=== PATIENT | female | born 1940 | race Caucasian/White ===

== ENCOUNTER 2016-12-03 10:23 | Inpatient (IN) ==
[2016-12-03] MEDS ORDERED: ALBUTEROL NEB INH ONE (10:51)
[2016-12-03] MEDS ORDERED: DUONEB (A & A) INH ONE (10:51)
[2016-12-03] MEDS ORDERED: SOLU-MEDROL IV ONE (10:51)
[2016-12-03 11:03] LABS: MANUAL DIFF NEEDED? NO
[2016-12-03 11:06] LABS: BASO% 0.5 % (0.0-0.8); EOS# 0.35 X1000 (0.0-0.7); EOS% 4.4 % (0.0-10.0); HEMATOCRIT 36.8 % (37.0-47.0); HEMOGLOBIN 12.2 g/dL (12.0-16.0); LYMPH# 1.61 X1000 (1.2-3.4); LYMPH% 20.4 % (20.5-51.1); MCH 29.5 PG (27-31); MCHC 33.2 g/dL (33-37); MCV 89.1 FL (81-99); MONO# 0.58 X1000 (0.11-0.59); MONO% 7.3 % (1.7-9.3); MPV 11.3 FL (7.4-10.4); NEUT% 67.4 % (42.2-75.2); PLT 204 X1000 (130-400); RBC 4.13 XMIL (4.2-5.4)
[2016-12-03 11:57] LABS: AGAP 12; ALBUMIN 4.2 g/dL (3.5-5.0); ALKALINE PHOSPHATASE 56 U/L (32-104); BUN 13 mg/dL (8-22); CALCIUM 9.1 mg/dL (8.8-10.2); CHLORIDE 98 mmol/L (98-107); COSMO 278; GOT 19 U/L (10-30); GPT 14 U/L (10-36); POTASSIUM 3.7 mmol/L (3.5-5.1); SODIUM 139 mmol/L (136-145); TCO2 29 mmol/L (25-35); TOTAL BILIRUBIN 0.45 mg/dL (0.20-1.00); TOTAL PROTEIN 7.8 g/dL (6.3-8.3)
[2016-12-03 12:07] LABS: ALLEN TEST YES; BE 4.4 mmoll (-3.0-3.0); BLOOD TYPE ARTERIAL; DRAW SITE R RADIAL; METHB 0.7 % (0.0-1.5); O2(CT) 21.3 mL/dL (15.0-23.0); PCO2(98.6) 46 mmHg (35-45); PO2(98.6) 64 mmHg (60-100); SAMPLE BLOOD; SAO2 98.2 % (95.0-100.0); THB 15.8 g/dL (11.5-17.4); pH(98.6) 7.42 (7.35-7.45)
--- NOTE | 2016-12-03 12:07 | Diag Imaging Result Doc PS360 ---
EXAM: CHEST-2 VIEWS INDICATION: cough TECHNIQUE: 2 views COMPARISON: 08/24/2016 FINDINGS: The lungs are hyperinflated suggesting COPD, stable. Otherwise, the lungs are grossly clear. There is no discrete pleural fluid collection or pneumothorax. There is a stable thoracic aortic stent graft. Cardiac silhouette and central vasculature are grossly unremarkable, otherwise. IMPRESSION: Stable COPD changes but no definite acute pathology. Electronically signed by Hugh Oreilly 12/03/2016 12:05 PM
[2016-12-03 12:08] LABS: MODALITY CANNULA
[2016-12-03] MEDS ORDERED: CATAPRES PO ONE (12:10)
--- NOTE | 2016-12-03 12:28 | EKG Report ---
Test Performed on : 12/03/2016 10:38:33 AM Test Reason : ED. Not ordered in [place] Blood Pressure : / mmHG Vent. Rate : 086 BPM Atrial Rate : 086 BPM P-R Int : 124 ms QRS Dur : 096 ms QT Int : 404 ms P-R-T Axes : 036 042 056 degrees QTc Int : 483 ms Normal sinus rhythm. Normal ECG When compared with ECG of 18-JAN-2014 11:06, No significant change was found Unconfirmed Result
--- NOTE | 2016-12-03 12:57 | PROVIDER DOCUMENTATION ---
This chart was entered by Jose Alfredo Chicas Scribe, acting as scribe for Drake Castaneda CRNP. HPI-Respiratory General - General Chief Complaint: Shortness of Breath Stated Complaint: elevated bp/low oxygen Time Seen by Provider: 12/03/16 10:43 Source: patient Allergies/Adverse Reactions: Patient Allergies Allergy/AdvReac Type Severity Reaction Status Date / Time acetaminophen [From Lortab] Allergy NAUSEA Verified 12/03/16 10:53 hydrocodone bitartrate * Allergy NAUSEA Verified 12/03/16 10:53 [From Lortab] Home Medications: Home Medication List Medication Instructions Recorded Confirmed Last Taken Type Albuterol 0.5% INH Conc [Albuterol 2.5 mg INH 4XDAY 01/18/14 12/03/16 01/21/14 06:30 History 0.5% INH Conc For Hyperkalemia] Amlodipine [Norvasc] 5 mg PO DAILY 01/18/14 12/03/16 01/20/14 08:00 History Atorvastatin Calcium [Lipitor] 40 mg PO QHS 01/18/14 12/03/16 01/20/14 08:00 History Citalopram [Celexa] 40 mg PO DAILY 01/18/14 12/03/16 01/20/14 08:00 History Fluticasone/Salmeterol [Advair 1 each IH DAILY 01/18/14 12/03/16 01/20/14 08:00 History 250-50 Diskus] Glucosamin,Biluumqzm-Hqal-Yvd4 1 each PO DAILY 01/18/14 12/03/16 01/20/14 08:00 History [Glucoten Caplet] Multivitamin with Minerals 1 each PO DAILY 01/18/14 12/03/16 01/20/14 08:00 History [Multiple Vitamin] Potassium 99 mg PO DAILY 01/18/14 12/03/16 01/20/14 08:00 History Hydroxyzine Pamoate [Vistaril] 50 mg PO BID PRN 12/03/16 12/03/16 Unknown History - History of Present Illness-Resp Nature of Presenting Problem: patient is 76 y/o F that presents to the ER with shortness of breath for about 6 days. patient reports mild cough but no fever/chills, chest pain. patient went to pcp and was found to be hypertensive( 200s/100s) and had low o2 saturation 89 % on RA. history of copd. Denies headache or visual changes with elevation of BP Quality of Pain: reports: tightness Severity in ED: reports: moderate Onset/Duration: reports: gradual, 6 days ago Timing: reports: still present, constant Context: reports: multiple patients with similar complaints. denies: recent URI , out of meds Cough Quality/Degree: reports: moderate, dry cough Episode Frequency: chronic episodes Current Respiratory Medication Therapy: Initiated see nurses note Modifying Factors: worse with: exertion, coughing Associated Symptoms: reports: cough, shortness of breath, short of breath, wheezing. denies: fever/chills, flu-like symptoms, headache, nasal congestion, nasal drainage Similar Symptoms Previously?: Yes Recently seen or treated by another doctor?: Yes Review of Systems - Adult - REVIEW OF SYSTEMS - ADULT Constitutional: denies: chills, fever Eyes: denies: decreased vision, blurred vision, double vision Ears, Nose, Mouth & Throat: denies: ear discharge, ear pain, sinus problem, throat pain Cardiovascular: denies: chest pain, palpitations, syncope Respiratory: reports: cough, shortness of breath, wheezing. denies: hemoptysis Gastrointestinal: denies: abdominal pain, diarrhea, nausea Genitourinary: reports: no symptoms reported Musculoskeletal: reports: no symptoms reported Integumentary: reports: no symptoms reported Neurological: denies: ataxia, dizziness/vertigo, headache/migraines, seizure, syncope Psychiatric: reports: no symptoms reported Endocrine: reports: no symptoms reported Hematologic/Lymphatic: reports: no symptoms reported Allergic/Immunologic: reports: no symptoms reported All Other Systems: Reviewed and Negative Past History - Adult - PAST MEDICAL HISTORY-ADULT Review of Records: reports: Old Records Reviewed, Nursing Assessment Review, Medications Reviewed Cardiovascular: reports: HTN Respiratory: reports: asthma, COPD Obstetrical/Gynecological: reports: other (R breast Ca) - PRIOR SURGERIES/PROCEDURES Surgical/Procedure History: reports: none - IMMUNIZATION STATUS Childhood Immunizations: See Nurse Assessment Flu Vaccine: See Nurse Assessment - FAMILY HISTORY Family History: reviewed, not pertinent - SOCIAL HISTORY Smoking: quit greater than 1 year, cigarettes Living Situation: family Physical Exam-General - PHYSICAL EXAM-ADULT Initial Vital Signs Reviewed: Yes - CONSTITUTIONAL General Appearance: alert, mild distress - EYES Eyes: PERRL/EOMI, pink conjunctivae - HEAD, EARS, NOSE, MOUTH & THROAT HENMT: normocephalic/atraumatic, moist mucous membranes, normal ENT inspection - NECK Neck: non-tender, full range of motion, normal inspection - RESPIRATORY Respiratory: respiratory distress (mild), accessory muscle use (mild), wheezing - CARDIOVASCULAR Cardiovascular: regular rate, rhythm, no edema, no murmur - GASTROINTESTINAL (ABDOMEN) Abdominal Exam: normal bowel sounds, non tender, soft - MUSCULOSKELETAL Extremity: normal range of motion, normal inspection, no pedal edema, normal capillary refill, pelvis stable - SKIN Integumentary: normal color, warm/dry - NEUROLOGIC Neurologic: grossly normal, no motor/sensory deficits - PSYCHIATRIC Psych/Mental Status: normal mood/affect, normal thought content, normal thought process, oriented x 3 Progress - PLAN OF CARE/RESULTS Progress/Plan/Lab Results: Vital Signs - 8 hr 12/03/16 10:26 12/03/16 11:21 12/03/16 12:11 Temperature 98.4 F Pulse Rate 96 H 77 82 Respiratory Rate 24 20 Blood Pressure 260/120 199/93 O2 Sat by Pulse Oximetry 89 L 96 94 L Laboratory Results - last 24 hr 12/03/16 12/03/16 12/03/16 10:40 10:40 10:40 WBC 7.90 RBC 4.13 L Hgb 12.2 Hct 36.8 L MCV 89.1 MCH 29.5 MCHC 33.2 RDW Std Deviation 13.6 Plt Count 204 MPV 11.3 H Immature Gran % (Auto) 0.0 Neut % (Auto) 67.4 Lymph % (Auto) 20.4 L [place] % (Auto) 7.3 Eos % (Auto) 4.4 Baso % (Auto) 0.5 Immature Gran # (Auto) 0.00 Neut # (Auto) 5.32 Lymph # (Auto) 1.61 [place] # (Auto) 0.58 Eos # (Auto) 0.35 Baso # (Auto) 0.04 Specimen Type Sample Site pH pCO2 pO2 HCO3 Base Excess Oxyhemoglobin ABG O2 Sat (Calculated) ABG O2 Saturation ABG Carboxyhemoglobin ABG Methemoglobin Dinesh Test A-a O2 Difference Total Hemoglobin Lactate Liter Flow Blood Gas Modality FiO2 % Sodium 139 Potassium 3.7 Chloride 98 Carbon Dioxide 29 Anion Gap 12 BUN 13 Creatinine 0.8 Estimated GFR/1.73 m2 > 60 BUN/Creatinine Ratio 16 Glucose 105 H Calculated Osmolality 278 Calcium 9.1 Total Bilirubin 0.45 AST 19 ALT 14 Alkaline Phosphatase 56 Hjo-Z-Ptnekdjhgtw Pept 168 Total Protein 7.8 Albumin 4.2 Globulin 3.6 Albumin/Globulin Ratio 1.2 Plasma Lactate 12/03/16 12/03/16 10:40 12:00 WBC RBC Hgb Hct MCV MCH MCHC RDW Std Deviation Plt Count MPV Immature Gran % (Auto) Neut % (Auto) Lymph % (Auto) [place] % (Auto) Eos % (Auto) Baso % (Auto) Immature Gran # (Auto) Neut # (Auto) Lymph # (Auto) [place] # (Auto) Eos # (Auto) Baso # (Auto) Specimen Type ARTERIAL Sample Site R RADIAL pH 7.42 pCO2 46 H pO2 64 HCO3 28.3 H Base Excess 4.4 H Oxyhemoglobin 96.0 ABG O2 Sat (Calculated) 21.3 ABG O2 Saturation 98.2 ABG Carboxyhemoglobin 1.40 ABG Methemoglobin 0.7 Dinesh Test YES A-a O2 Difference 78.0 Total Hemoglobin 15.8 Lactate 1.20 Liter Flow 2.0 Blood Gas Modality CANNULA FiO2 % 28.0 Sodium Potassium Chloride Carbon Dioxide Anion Gap BUN Creatinine Estimated GFR/1.73 m2 BUN/Creatinine Ratio Glucose Calculated Osmolality Calcium Total Bilirubin AST ALT Alkaline Phosphatase Bdz-Q-Xvgyynchivb Pept Total Protein Albumin Globulin Albumin/Globulin Ratio Plasma Lactate 1.0 Orders Category Date Time Status Saline Loc NOW Care 12/03/16 10:52 Active CHEST-2 VIEWS [RAD] Stat Exams 12/03/16 10:52 Completed ABG [RESP] Routine Lab 12/03/16 12:00 Completed BLOOD CULTURE [BLDCUL] Stat Lab 12/03/16 11:06 Results CBC WITH DIFF [HEME] Stat Lab 12/03/16 10:40 Completed COMPREHENSIVE METABOLIC PANEL [CHEM] Stat Lab 12/03/16 10:40 Completed LACTATE, PLASMA [CHEM] Stat Lab 12/03/16 10:40 Completed PRO B-NATRIURETIC PEPTIDE Stat Lab 12/03/16 10:40 Completed Albuterol 2.5MG/Ipratrop 0.5MG [Duoneb (A & A)] Med 12/03/16 10:51 Discontinued 3 ml INH NOW ONE Albuterol [Albuterol Neb] Med 12/03/16 10:51 Discontinued 2.5 mg INH NOW ONE Clonidine [Catapres] Med 12/03/16 12:10 Discontinued 0.2 mg PO NOW ONE Methylprednisolone Sod Succ [Solu-Medrol] Med 12/03/16 10:51 Discontinued 125 mg IV NOW ONE Aerosol Treatments Routine Oth 12/03/16 10:53 Completed Aerosol Treatments Stat Oth 12/03/16 10:53 Completed Pulse Oximetry Stat Oth 12/03/16 10:52 Completed EKG [EKG] Stat Ther 12/03/16 10:38 Draft Result Diagrams: 12/03/16 10:40 12/03/16 10:40 - EKG 1 Time of EKG reading by physician:: 10:43 EKG Read and Signed by:: Prabhakar Penaloza EKG Interpretation (*Must complete 3 of following elements*): Normal Rate: 86 Rhythm: NSR [place]: normal QRS: normal SD Interval: normal ST Wave: normal - XRAY 1 XRAY: Bilateral XRAY Study: Chest Impression: See EMR Report (COPD. Per radiologist report.) - CONSULTS/PCP/HOSPITALIST Notification #1 *Consult/PCP/Hospitalist*: Murphy Time Discussed: 12:22 Consult Disposition: Will see in ED, Admit Departure - Departure Date of Disposition Decision: 12/03/16 Time of Disposition Decision: 12:22 DIAGNOSIS: COPD exacerbation Disposition: ADMITTED INPATIENT 09 Certified Medical Emergency: Emergent Condition: Stable Referrals and Follow-Ups: Mary Anne Guillory [Primary Care Provider] - - Critical Care Note This patient required my direct & personal management of CC.: No Attestation - Physician/ DIPTI Attestation Patient care was provided by Advanced Practice Provider:: Yes Advanced Practice Provider:: Drake Castaneda Advanced Practice Provider documentation review:: The Mid-level provider documentation, treatment plan and medical decision making was reviewed by the physician who agrees with all treatment and medical decision making by the MLP. The physician spent face to face time with patient:: No Advanced Practice Provider documentation review:: Supervising physician onsite and consulted in the evaluation and care of this patient. The physician did not have a face to face encounter with the patient. This chart was documented by the indicated scribe, (Jose Alfredo Chicas, Siobhanarmando) and accurately reflects the services I performed and decisions made by me, Drake Castaneda CRNP, as attested by the provider's signature.
[2016-12-03] MEDS ORDERED: DUONEB (A & A) INH PRN (14:14)
[2016-12-03] MEDS ORDERED: APRESOLINE IV PRN (14:14)
[2016-12-03] MEDS ORDERED: HYDROXYZINE PO PRN (14:14)
--- NOTE | 2016-12-03 14:30 | EKG Report ---
Test Performed on : 12/03/2016 2:05:15 PM Test Reason : sob Blood Pressure : / mmHG Vent. Rate : 073 BPM Atrial Rate : 073 BPM P-R Int : 174 ms QRS Dur : 090 ms QT Int : 444 ms P-R-T Axes : 068 032 060 degrees QTc Int : 489 ms Normal sinus rhythm. Normal ECG When compared with ECG of 03-DEC-2016 10:38, (Unconfirmed) No significant change was found Confirmed by Larry SARMIENTO, Dinesh Damico ([id number]) on 12/03/2016 8:51:23 PM
[2016-12-03] MEDS: ROCEPHIN 1 GM in NS 50 ML IV SCH (15:18)
[2016-12-03] MEDS: DUONEB (A & A) INH SCH ×3 (15:55→22:59)
--- NOTE | 2016-12-03 17:19 | HISTORY AND PHYSICAL ---
PCP: Mary Anne Guillory [employer] PRO[employer] MANAGER: Dr. Vang. CHIEF COMPLAINT: Shortness of breath. HISTORY OF PRESENT ILLNESS: Mrs. Jenkins is a 76-year-old female with a history of COPD on 24/7 oxygen, aortic aneurysm status post repair, history of right-sided breast cancer who presents with 3 days of progressive dyspnea. She has started having some shortness of breath with mild exertion. This progressed over the past few days to shortness of breath at rest. This is associated with cough with green and yellow sputum production, but no fever or chills. She denies any chest pain or back pain. No lower extremity edema or orthopnea. When she got to the ER labs and diagnostics were done. Chest x-ray showed stable COPD changes but nothing acute. Her laboratory data also was unremarkable. Apparently she went to her PCP earlier today because of the shortness of breath and because her blood pressure was elevated over 200 systolic. She was sent here. Currently her blood pressure is 158/86, but this was after treatment in the ER. As such she is going to be admitted for observation status for COPD exacerbation and malignant hypertension. PAST MEDICAL HISTORY: 1. COPD followed by Dr. Vang on 2 L of oxygen /. 2. Hypertension. 3. Hyperlipidemia. 4. Breast cancer status post right mastectomy in 2012. 5. Aortic aneurysm status post repair. SURGICAL HISTORY: She has had a right mastectomy, hernia repair x 3 and aortic aneurysm repair. SOCIAL HISTORY: She quit smoking 10-15 years ago. She denies alcohol, tobacco or drug use. Her family including is at the bedside. FAMILY HISTORY: Father from aortic aneurysm. Mother from [place]. REVIEW OF SYSTEMS: Fourteen-point review of systems obtained and found to be negative with the exception of the HPI. ALLERGIES: Acetaminophen and hydrocodone. HOME MEDICATIONS: Albuterol 2.5 mg inhaled 4 times a day, Norvasc 5 mg daily, Lipitor 40 mg p.o. at bedtime, Celexa 40 mg daily, Advair as directed, glucosamine chondroitin multivitamin 1 daily, Vistaril 50 mg p.o. b.i.d., potassium 99 mg daily. PHYSICAL EXAMINATION: VITAL SIGNS: Blood pressure is 154/86, heart rate is 79, respiratory rate is 23 , O2 saturation 92% on 2 L nasal cannula, temperature is 98.4 degrees. GENERAL: This is an obese, female, lying in hospital bed in no acute distress. NEUROLOGIC: She is awake, alert, and oriented. She follows commands without focal deficits. HEENT: Head is atraumatic, normocephalic. Her pupils are equal, round, reactive to light. Oral mucosa is moist. Trachea is midline. Oropharynx is clear. NECK: Is supple. No lymphadenopathy. CHEST: Diminished at the bases with scattered wheezes. CV: Regular rate and rhythm. S1-S2 is noted. No murmurs. There is no JVD. No lower extremity edema. GI: Soft, nondistended, nontender. Bowel sounds are positive. EXTREMITIES: No edema. Pulses diminished bilaterally. DIAGNOSTIC DATA: Chest x-ray is negative. WBC 7.9, hemoglobin 12.2, hematocrit 36.8, platelet count 204,000. ABG on nasal cannula, pH 7.42, CO2 46, bicarb 28.3. Lactic acid 1.2. Sodium 139, potassium 3.7, chloride 98, CO2 29, anion gap is 12, BUN 13, creatinine 0.8, glucose 105. LFTs within normal limits. Albumin 4.2. ASSESSMENT/PLAN: 1. Chronic obstructive pulmonary disease exacerbation: We will continue steroids started in the ER. We will add Rocephin. Aggressive pulmonary toilet and breathing treatments. She is feeling better. 2. History of aortic aneurysm: The patient denies any chest or back pain. We will check an EKG and trend enzymes. 3. History of breast cancer: Aware. 4. Hypertension: Continue home medications. Add IV p.r.n. if necessary. 5. Deep vein thrombosis prophylaxis with Lovenox. 6. Further recommendations to follow. Patient seen and examined by me face to face, all the lab work, vitals signs and images were reviewed, patient came in with SOB, she has history of COPD, she has wheezes on my physical exam, I think she can be dischared in 1 or 2 days , I agree with the assessment and plan, Micheal Saenz MD Dictated by ZAINAB Torres for Micheal Rosenberg MD cc: ZAINAB Torres [facility]
[2016-12-03] MEDS: SOLU-MEDROL IV SCH (18:52)
[2016-12-03] MEDS: LIPITOR PO SCH (22:04)
[2016-12-04] MEDS: DUONEB (A & A) INH SCH ×6 (03:17→23:30)
[2016-12-04] MEDS: SOLU-MEDROL IV SCH ×3 (04:05→17:32)
[2016-12-04 06:27] LABS: HEMATOCRIT 34.1 % (37.0-47.0); HEMOGLOBIN 11.2 g/dL (12.0-16.0); MCH 29.9 PG (27-31); MCHC 32.8 g/dL (33-37); MCV 90.9 FL (81-99); MPV 11.4 FL (7.4-10.4); RBC 3.75 XMIL (4.2-5.4)
[2016-12-04 07:08] LABS: AGAP 13; BUN 19 mg/dL (8-22); CALCIUM 9.1 mg/dL (8.8-10.2); CHLORIDE 101 mmol/L (98-107); COSMO 288; POTASSIUM 4.5 mmol/L (3.5-5.1); SODIUM 142 mmol/L (136-145); TCO2 28 mmol/L (25-35)
[2016-12-04] MEDS: ADVAIR 250/50 DISKUS INH SCH (07:59)
[2016-12-04] MEDS: NORVASC PO SCH (09:06)
[2016-12-04] MEDS: LOVENOX SUBQ SCH (09:06)
[2016-12-04] MEDS: CELEXA PO SCH (09:06)
[2016-12-04] MEDS: THERA M PLUS PO SCH (09:06)
--- NOTE | 2016-12-04 14:26 | PROGRESS NOTE ---
DATE: 12/04/2016 SUBJECTIVE: Patient reports breathing better, but she is not at her baseline. She is still mildly short of breath. She is using 2 L of oxygen by nasal cannula. OBJECTIVE: Vital Signs: Temperature 98.0 degrees, heart rate 81, respiratory rate 20, blood pressure 169/71, O2 saturation 98% on 2 L nasal cannula. General Examination: This is a 76-year- old, chronically ill-looking female lying in bed, in no acute distress. HEENT: Head is normocephalic, atraumatic. Neck: Supple. No jugular venous distention noted. No carotid bruits. No lymphadenopathy. No thyromegaly. Cardiovascular Examination: S1-S2 heard. No murmurs, gallops, or rubs. Regular rate and rhythm. Respiratory Examination: Wheezing all over both pulmonary quesada. Patient is not using any accessory muscles or having work of breathing. Abdomen: Soft, nontender to palpation. Bowel sounds present. No organomegaly. Extremities: No clubbing, cyanosis, or edema. Peripheral pulses present in both legs. Neurological Examination: Patient is alert and oriented x3. Able to move her extremities. Cranial nerves 2-12 grossly normal. LABORATORY DATA: White cell count 4.95, hemoglobin 11.2, hematocrit 34.1, platelets 192,000, with normal BMP. ASSESSMENT AND PLAN: 1. Chronic obstructive pulmonary disease exacerbation. Patient is on Rocephin, IV steroids, and breathing treatments. We are going to continue with the same management. 2. History of breast cancer, aware. 3. History of aortic aneurysm. The patient denies any chest pain or back pain. We have checked EKG, which is okay. 4. Hypertension. We will continue with home medications. Blood pressure is better, but not completely well controlled. We will continue checking blood pressure every 6 hours. 5. Deep vein thrombosis prophylaxis with Lovenox. cc: Yared Macedo MD
[2016-12-04] MEDS: ROCEPHIN 1 GM in NS 50 ML IV SCH (15:46)
[2016-12-04] MEDS: SPIRIVA INH SCH (17:58)
[2016-12-04] MEDS ORDERED: HYDROXYZINE PO PRN (20:59)
[2016-12-04] MEDS: LIPITOR PO SCH (21:04)
[2016-12-05] MEDS: SOLU-MEDROL IV SCH ×3 (02:24→10:09)
[2016-12-05] MEDS: DUONEB (A & A) INH SCH ×3 (03:24→11:07)
[2016-12-05 06:50] LABS: HEMATOCRIT 33.8 % (37.0-47.0); HEMOGLOBIN 11.1 g/dL (12.0-16.0); MCH 29.8 PG (27-31); MCHC 32.8 g/dL (33-37); MCV 90.9 FL (81-99); MPV 11.2 FL (7.4-10.4); RBC 3.72 XMIL (4.2-5.4)
[2016-12-05 07:09] LABS: AGAP 14; BUN 28 mg/dL (8-22); CALCIUM 9.5 mg/dL (8.8-10.2); CHLORIDE 102 mmol/L (98-107); COSMO 297; POTASSIUM 4.4 mmol/L (3.5-5.1); SODIUM 145 mmol/L (136-145); TCO2 29 mmol/L (25-35)
[2016-12-05] MEDS: THERA M PLUS PO SCH (08:53)
[2016-12-05] MEDS: CELEXA PO SCH (08:53)
[2016-12-05] MEDS: NORVASC PO SCH (08:53)
[2016-12-05] MEDS: LOVENOX SUBQ SCH ×2 (08:53→10:24)
[2016-12-05] MEDS: ADVAIR 250/50 DISKUS INH SCH (11:07)
[2016-12-05] MEDS ORDERED: FLUZONE QUAD 2017-2018 SYRINGE IM ONE (11:11)
[2016-12-05 11:59] VITALS: BP 174/64
[2016-12-05] MEDS ORDERED: PRINIVIL PO SCH (12:15)
[2016-12-05] MEDS: ROCEPHIN 1 GM in NS 50 ML IV SCH (14:37)
--- NOTE | 2016-12-05 14:42 | DISCHARGE SUMMARY ---
ADMISSION DATE: 12/05/2016 DISCHARGE DATE: 12/05/2016 DISCHARGE DIAGNOSES: 1. Chronic obstructive pulmonary disease exacerbation, improved. 2. History of breast cancer. Aware. 3. Hypertension. 4. Bronchial asthma, improved. 5. Hyperlipidemia. CONSULTATIONS: None. PROCEDURES: Chest x-ray done on admission showed stable COPD changes, but no definite acute pathology. HOSPITAL COURSE: This is a 76-year-old, female with history of COPD, on home oxygen at 2 L/minute, aortic aneurysm, right-sided breast cancer. She started having some shortness of breath with mild exertion that was getting worse over the last few days. It was associated with cough, with green and yellow sputum, but no fever or chills. Because of those findings, the patient decided to go to the ER. She was admitted to hospital for COPD exacerbation. She received breathing treatments every 4 hours, and she was afebrile. She was started on antibiotics and IV steroids. The patient today is feeling better. She was informed that the white cell count, because of the steroids, has gone up, but she prefers to see a primary care physician and to check on her in 1 week. The patient denies any shortness of breath at rest. The patient is being discharged, in stable condition. DISCHARGE PHYSICAL EXAMINATION: Vital signs: Temp 98.2 degrees, heart rate 81, respiratory rate 18, blood pressure 188/70, O2 saturation 93% on 2 L nasal cannula. General: This is a 76-year- old, female. Lying in bed, in no acute distress. HEENT: Head is normocephalic, atraumatic. Anicteric sclerae and pale conjunctivae. Mucous membranes moist. Neck: Supple. No JVD noted. No carotid bruits. No lymphadenopathy. No thyromegaly. Cardiovascular: S1, S2 heard. No murmurs, gallops, or rubs. Regular rate and rhythm. Respiratory: Clear bilaterally to auscultation. Few wheezes in both bases, but definitely much better in comparing with admission. The patient is not using any accessory muscles or having work of breathing. Abdomen: Soft, nontender to palpation. Bowel sounds present. No organomegaly. Extremities: No clubbing, cyanosis, or edema. Peripheral pulses present in both legs. Neurological: The patient alert and oriented x3. Moves 4 extremities. DISCHARGE DISPOSITION: To home, to self-care. MEDICATIONS: 1. Lisinopril 10 mg, 1 tablet p.o. daily. 2. Spiriva, 1 inhalation daily. 3. Medrol Dosepak as directed. 4. DuoNeb 3 mL by inhalation every 4 hours as needed for shortness of breath. 5. Advair 250/50, one inhalation b.i.d. 6. Atorvastatin 40 mg, 1 tablet p.o. at bedtime. 7. Multivitamin, 1 tablet p.o. daily. 8. Citalopram 40 mg, 1 tablet p.o. daily. 9. GlucaPen, 1 tablet p.o. daily. 10. Amlodipine 10 mg, 1 tablet p.o. daily. 11. Hydroxyzine 150 mg, 1 tablet p.o. b.i.d. as needed for anxiety. DISCHARGE FOLLOWUP: Follow up with primary care physician in 1 week, with a repeated the CBC. cc: Yared Macedo MD
[2016-12-05] MEDS: SPIRIVA INH SCH (15:57)
[2016-12-05] MEDS ORDERED: NORVASC PO SCH (21:00)
== END 2016-12-05 17:33 | disposition home or self-care (01) ==
LOC: ED 10:23 → INTOOBSV 13:23 → 3N 13:23 → SUATTDRO 13:23 → 3N 14:06
PROVIDERS: ATTEND Internal Medicine

== ENCOUNTER 2018-03-10 17:54 | Inpatient (IN) ==
--- NOTE | 2018-03-10 18:24 | ED EKG INTERP ---
This chart was entered by Rosendo Levin Scribe, acting as scribe for Tigre Walter MD. EKG Interpretation - EKG Time of EKG reading by physician:: 18:11 EKG Read and Signed by:: Tigre Walter EKG Interpretation (*Must complete 3 of following elements*): Normal Rate: 98 Rhythm: NSR [place]: normal QRS: normal [place] Interval: normal ST Wave: normal Attestation - Physician/ DIPTI Attestation Patient care was provided by Advanced Practice Provider:: No The physician spent face to face time with patient:: Yes Advanced Practice Provider documentation review:: Supervising physician onsite and consulted in the evaluation and care of this patient. The physician did have a face to face encounter with the patient. This chart was documented by the indicated scribe, (Rosendo Levin Scribe) and accurately reflects the services I performed and decisions made by me, Tigre Walter MD, as attested by the provider's signature.
[2018-03-10] MEDS ORDERED: NS 1,000 ML IV ONE ×2 (18:35→22:02)
[2018-03-10] MEDS ORDERED: ROCEPHIN 1 GM in NS 50 ML IV ONE (18:35)
[2018-03-10] MEDS ORDERED: DECADRON IV ONE (18:35)
[2018-03-10] MEDS ORDERED: DUONEB (A & A) INH ONE (18:36)
--- NOTE | 2018-03-10 18:43 | Diag Imaging Result Doc PS360 ---
EXAM: CHEST-2 VIEWS HISTORY: SOB TECHNIQUE: Chest two views COMPARISON: 02/17/2018 FINDINGS: The lungs are hyperexpanded. Increased AP diameter to the chest. The pulmonary vessels are small. Increased interstitial markings consistent with fibrosis. No consolidation. There are aortic vascular stents IMPRESSION: Severe emphysema with pulmonary fibrosis Electronically signed by Franklyn Tanner 03/10/2018 6:40 PM
[2018-03-10 18:46] LABS: ALLEN TEST YES; BE 5.8 mmoll (-3.0-3.0); BLOOD TYPE ARTERIAL; HCO3-(ACT) 29.3 mmoll (20.0-26.0); METHB 1.5 % (0.0-1.5); O2(CT) 13.7 mL/dL (15.0-23.0); PCO2(98.6) 40 mmHg (35-45); PO2(98.6) 57 mmHg (60-100); SAMPLE BLOOD; SAO2 92.7 % (95.0-100.0); THB 10.9 g/dL (11.5-17.4); pH(98.6) 7.48 (7.35-7.45)
[2018-03-10 18:48] LABS: MODALITY CANNULA; O2HB 89.2 % (95.0-99.0)
[2018-03-10 19:01] LABS: BASO# 0.02 X1000 (0.0-0.2); BASO% 0.2 % (0.0-0.8); EOS# 0.05 X1000 (0.0-0.7); EOS% 0.4 % (0.0-10.0); HEMATOCRIT 33.2 % (37.0-47.0); HEMOGLOBIN 10.6 g/dL (12.0-16.0); IMM GRAN# 0.03 X1000 (0.0-0.04); IMM GRAN% 0.2 % (0.0-0.5); LYMPH# 1.19 X1000 (1.2-3.4); LYMPH% 9.8 % (20.5-51.1); MCH 28.4 PG (27-31); MCHC 31.9 g/dL (33-37); MONO# 0.88 X1000 (0.11-0.59); MONO% 7.3 % (1.7-9.3); MPV 11.6 FL (7.4-10.4); NEUT# 9.93 X1000 (1.4-6.5); NEUT% 82.1 % (42.2-75.2); PLT 196 X1000 (130-400); RBC 3.73 XMIL (4.2-5.4); RDW 14.2 % (11.5-14.5)
[2018-03-10 19:22] LABS: INR 1.04; PROTIME 14.4 Seconds (11.0-16.0)
[2018-03-10 19:26] LABS: ALB/GLOB RATIO 1.2; CALCIUM 9.2 mg/dL (8.8-10.2); MAGNESIUM 1.9 mg/dL (1.5-2.7); POTASSIUM 3.8 mmol/L (3.5-5.1); TOTAL BILIRUBIN 0.56 mg/dL (0.20-1.00); TOTAL PROTEIN 7.3 g/dL (6.3-8.3)
[2018-03-10 19:45] LABS: CK INDEX 1.2 (0.0-2.5); CK-MB 2.79 ng/mL (0.0-5.0)
[2018-03-10] MEDS ORDERED: ASPIRIN PO ONE (20:22)
[2018-03-10 20:33] LABS: PHOSPHORUS 2.5 mg/dL (2.7-4.5)
[2018-03-10] MEDS ORDERED: NS 3,000 ML ONE (20:41)
[2018-03-10] MEDS ORDERED: CARDIZEM IV ONE (22:02)
[2018-03-10 22:45] LABS: URINE SOURCE CLEAN CATCH
[2018-03-10 23:26] LABS: BILIRUBIN URINE NEGATIVE (NEGATIVE); BLOOD URINE NEGATIVE (NEGATIVE); COLOR YELLOW; GLUCOSE URINE NEGATIVE (NEGATIVE); KETONE URINE NEGATIVE (NEGATIVE); LEUKOCYTES URINE NEGATIVE (NEGATIVE); NITRITE URINE NEGATIVE (NEGATIVE); PROTEIN URINE NEGATIVE (NEGATIVE); TURBIDITY URINE HAZY (CLEAR); UR EPITHELIAL CELLS <10 /HPF (<10); URINE BACTERIA NEGATIVE /HPF; URINE RBC <10 /HPF (<10); URINE WBC <10 /HPF (<10); UROBILINOGEN URINE NORMAL (NORMAL)
[2018-03-10] MEDS: DUONEB (A & A) INH SCH (23:53)
[2018-03-10] MEDS ORDERED: NS 1,000 ML IV SCH (23:53)
[2018-03-11] MEDS: LEVAQUIN 500 MG/D5W 500 MG/100 ML IVPB IV SCH ×2 (00:20→23:33)
[2018-03-11] MEDS: LOVENOX SUBQ SCH ×2 (00:22→23:33)
--- NOTE | 2018-03-11 00:25 | HISTORY AND PHYSICAL ---
CHIEF COMPLAINT: Shortness of breath. PRIMARY CARE PROVIDER: Jodi Guillory. HISTORY OF PRESENTING ILLNESS: A 77-year-old female with a history of advanced emphysema and COPD, who had presented to the emergency department with 2 days' history of worsening shortness of breath. The patient states that she is on home oxygen. However, it did not improve her symptoms. She was having more difficulty breathing, and coughing, and her sputum was thick, so she was taken to the emergency department, where she was evaluated. Due to her presenting symptoms, it was thought that she would need admission for further management. At the time of my examination, she denied any headache, fever, chills, chest pain, hemoptysis, melena, but complained of cough and shortness of breath. PAST MEDICAL HISTORY: Advanced COPD, hypertension. PAST SURGICAL HISTORY: Hysterectomy and hernia surgery. ALLERGIES: Lortab. CURRENT MEDICATIONS: As listed in the medication reconciliation sheet. SOCIAL HISTORY: She is a former smoker. Denies any history of alcohol or illicit drug use. FAMILY HISTORY: Positive for coronary disease in mother. REVIEW OF SYSTEMS: A 14-point review of systems is as in HPI. Other systems negative. PHYSICAL EXAMINATION: GENERAL: Cooperative, friendly female. She is resting more comfortably now. VITAL SIGNS: Temperature 99.4 degrees, pulse 97, respirations 28, blood pressure 160/62. HEENT: Atraumatic, normocephalic. Extraocular movements intact. PERRLA. NECK: No masses. CHEST: Rhonchi. CARDIOVASCULAR: Regular rate and rhythm. ABDOMEN: Soft. Positive bowel sounds. EXTREMITIES: No edema. NEUROLOGIC: She is awake, alert, oriented x3. GENITOURINARY: No bladder disease. SKIN: Warm. LABORATORIES AND STUDIES: Sodium 138, potassium 3.8, chloride 97, CO2 of 27. BUN is 21, creatinine is 1.0, glucose is 135. WBC 12.10, hemoglobin 10.6, hematocrit 32.2, platelets 196. Chest x-ray shows severe emphysema, with pulmonary fibrosis. ASSESSMENT: A 77-year-old female with a history of advanced chronic obstructive pulmonary disease and emphysema, who had presented to the emergency department with 2 days' history of worsening shortness of breath. The patient was evaluated in the emergency department, and due to presenting symptoms, she will need admission for further management. 1. [id number] respiratory failure. 2. Chronic obstructive pulmonary disease exacerbation, with advanced emphysema. 3. Hypertension. PLAN: 1. We will admit patient to the medical floor with telemetry. 2. We will continue with DuoNebs, IV Solu-Medrol, and IV antibiotics. 3. We will continue with supplemental oxygen. 4. We will consult hand fur cleaner. 5. Monitor blood pressure closely. Resume antihypertensive agent. 6. Put patient on deep venous thrombosis prophylaxis with Lovenox. 7. We will continue to follow and reassess, and make further recommendations based on the patient's clinical course. cc: Shukri Krueger MD
[2018-03-11] MEDS ORDERED: CARDIZEM IV ONE (00:35)
[2018-03-11] MEDS: DUONEB (A & A) INH SCH ×7 (03:12→23:38)
[2018-03-11 05:35] LABS: HEMATOCRIT 32.2 % (37.0-47.0); HEMOGLOBIN 10.1 g/dL (12.0-16.0); IMM GRAN# 0.03 X1000 (0.0-0.04); IMM GRAN% 0.3 % (0.0-0.5); LYMPH# 0.41 X1000 (1.2-3.4); LYMPH% 3.8 % (20.5-51.1); MCH 28.5 PG (27-31); MCHC 31.4 g/dL (33-37); MCV 90.7 FL (81-99); MONO# 0.16 X1000 (0.11-0.59); MONO% 1.5 % (1.7-9.3); MPV 11.1 FL (7.4-10.4); NEUT# 10.12 X1000 (1.4-6.5); NEUT% 94.4 % (42.2-75.2); PLT 176 X1000 (130-400); RBC 3.55 XMIL (4.2-5.4); RDW 14.4 % (11.5-14.5); WBC 10.72 X1000 (4.8-10.8)
[2018-03-11 05:41] LABS: AGAP 14; BUN 18 mg/dL (8-22); CALCIUM 8.1 mg/dL (8.8-10.2); CHLORIDE 105 mmol/L (98-107); COSMO 290; CREATININE 0.8 mg/dL (0.5-0.9); ESTIMATED GFR > 60; GLUCOSE 162 mg/dL (70-104); POTASSIUM 4.1 mmol/L (3.5-5.1); SODIUM 143 mmol/L (136-145); TCO2 24 mmol/L (25-35)
--- NOTE | 2018-03-11 07:16 | EKG Report ---
Test Performed on : 03/10/2018 7:58:15 PM Test Reason : SOB Blood Pressure : / mmHG Vent. Rate : 140 BPM Atrial Rate : 140 BPM P-R Int : 000 ms QRS Dur : 140 ms QT Int : 346 ms P-R-T Axes : 000 005 141 degrees QTc Int : 528 ms Wide QRS tachycardia. Left bundle branch block Abnormal ECG When compared with ECG of 07-MAY-2017 12:43, Wide QRS tachycardia. has replaced Sinus rhythm. Unconfirmed Result
--- NOTE | 2018-03-11 07:16 | EKG Report ---
Test Performed on : 03/10/2018 6:11:25 PM Test Reason : SOB Blood Pressure : / mmHG Vent. Rate : 098 BPM Atrial Rate : 098 BPM P-R Int : 148 ms QRS Dur : 086 ms QT Int : 352 ms P-R-T Axes : 092 053 051 degrees QTc Int : 449 ms Normal sinus rhythm. Normal ECG No previous ECGs available Unconfirmed Result
--- NOTE | 2018-03-11 07:17 | EKG Report ---
Test Performed on : 03/10/2018 8:58:16 PM Test Reason : CP Blood Pressure : / mmHG Vent. Rate : 101 BPM Atrial Rate : 101 BPM P-R Int : 146 ms QRS Dur : 086 ms QT Int : 356 ms P-R-T Axes : 041 027 050 degrees QTc Int : 461 ms Sinus tachycardia. Otherwise normal ECG When compared with ECG of 10-MAR-2018 19:58, (Unconfirmed) Sinus rhythm. has replaced Wide QRS tachycardia. Unconfirmed Result
[2018-03-11 07:20] LABS: LYMPHS 6 % (21-51); SEGS 94 % (42-75)
[2018-03-11] MEDS: NORVASC PO SCH ×2 (09:33→20:59)
[2018-03-11] MEDS: CELEXA PO SCH (09:33)
--- NOTE | 2018-03-11 11:02 | PROGRESS NOTE ---
DATE: 03/11/2018 SUBJECTIVE: This morning, Ms. Jenkins refers to be doing a lot better. Ms. Jenkins got admitted yesterday because of progressively worsening shortness of breath. She has gone up on her oxygen demands at home to about 3.5 L recently, and she has been coughing and bringing up some greenish yellowish sputum. She got admitted yesterday. Initially was found to have an oxygen saturation of 84% on 3 L, that has normalized now. OBJECTIVE: Vital signs: Blood pressure is 207/110, pulse of 88, respiration is 17. Oxygen saturation 92 to 96. General: Ms. Jenkins is a 77-year-old female. She is in bed. She is not in any cardiopulmonary distress. Mucosa: [place] and moist. Anicteric. Acyanotic. Neck: Supple. Respiratory: Air entry is bilaterally reduced. There is prolonged expiratory phase of respiration. There is also diffuse expiratory wheezing in both lung quesada. Cardiovascular: Regular rate and rhythm. No murmurs, no rubs, no gallops. Abdomen: Soft, nontender. Bowel sounds present. Extremities: No pedal edema. ENTERPRISE RECORDS ANALYST: Patient is awake, alert, and oriented. LABORATORY DATA: WBC is 10.72, hemoglobin is 10.1, platelet count of 176,000. Chemistry is also reviewed, completely normal. A chest x-ray yesterday shows severe emphysema with pulmonary fibrosis. CURRENT MEDICATIONS: Have been reviewed. She has been started on Levaquin, and she is on steroids. ASSESSMENT: 1. Severe chronic obstructive pulmonary disease with fibrosis in acute exacerbation. Patient is on bronchodilation therapy, steroids, and antibiotics. Pulmonary Medicine has been consulted. 2. Acute on chronic hypoxemic respiratory failure secondary to chronic obstructive pulmonary disease exacerbation. 3. Hypertension. We started the patient on her home medications. 4. Mild clinical volume depletion. Patient is on intravenous hydration. PLAN: So in general, Ms. Jenkins seems to be fairly stable. She refers to be doing a lot better today. We are pending Pulmonary Medicine to evaluate her. We are going to continue with her current antibiotics, steroids, and bronchodilation therapy, and re-evaluate her tomorrow and then go from there. cc: Regis Painter MD
[2018-03-11] MEDS: ZOFRAN IV PRN ×2 (11:29→23:12)
--- NOTE | 2018-03-11 12:13 | EKG Report ---
Test Performed on : 03/11/2018 10:39:33 AM Test Reason : HEART RATE Blood Pressure : / mmHG Vent. Rate : 091 BPM Atrial Rate : 091 BPM P-R Int : 168 ms QRS Dur : 092 ms QT Int : 382 ms P-R-T Axes : 073 048 072 degrees QTc Int : 469 ms Normal sinus rhythm. Nonspecific ST and T wave abnormality Abnormal ECG When compared with ECG of 11-MAR-2018 10:38, (Unconfirmed) No significant change was found Confirmed by Deanne SARMIENTO, Regis Jay ([id number]) on 03/11/2018 5:58:41 PM
[2018-03-11] MEDS ORDERED: LABETALOL IV ONE (13:23)
[2018-03-11] MEDS ORDERED: MORPHINE IV ONE ×2 (15:44→16:00)
[2018-03-11] MEDS ORDERED: SODIUM CHLORIDE 0.9% INJ ONE (15:44)
[2018-03-11] MEDS ORDERED: APRESOLINE IV ONE (15:44)
[2018-03-11] MEDS ORDERED: PHENERGAN IV ONE (15:44)
--- NOTE | 2018-03-11 17:03 | EKG Report ---
Test Performed on : 03/11/2018 3:48:38 PM Test Reason : BP Blood Pressure : / mmHG Vent. Rate : 087 BPM Atrial Rate : 087 BPM P-R Int : 168 ms QRS Dur : 084 ms QT Int : 390 ms P-R-T Axes : 077 058 076 degrees QTc Int : 469 ms Normal sinus rhythm. Normal ECG When compared with ECG of 11-MAR-2018 10:39, (Unconfirmed) No significant change was found Confirmed by Deanne SARMIENTO, Regis Jay ([id number]) on 03/12/2018 7:51:53 AM
[2018-03-11] MEDS: DESYREL PO SCH (20:58)
[2018-03-11] MEDS: LIPITOR PO SCH (20:58)
[2018-03-11] MEDS: PRINIVIL PO SCH (20:59)
[2018-03-12] MEDS: SOLU-MEDROL IV SCH ×3 (02:29→19:56)
[2018-03-12] MEDS: ZOFRAN IV PRN ×2 (02:30→14:09)
--- NOTE | 2018-03-12 03:37 | PULMONOLOGY CONSULTATION ---
DATE: 03/11/2018 REQUESTING PHYSICIAN: Dr. Painter. REASON FOR CONSULTATION: COPD, in a patient known to you. HISTORY OF PRESENT ILLNESS: Ms. Jenkins is a 77-year-old white female with severe COPD, hypoxemic and hypercapnic respiratory failure, who is on chronic oxygen. The patient also has a Trilogy device, with infrequent use. The patient was last seen in my office 02/25/2018, and was at her baseline. The patient had received her influenza vaccine, and she has been avoiding crowded places. The patient reports she was doing well until the day prior to admission, when she developed a cough with increasing oxygen requirements, and increase in thick dark sputum. The patient presented to the emergency room, and underwent routine management without improvement. The patient has been admitted for additional evaluation and management. The patient denies fevers or chills. PAST MEDICAL HISTORY/ PROBLEM LIST: 1. Severe COPD, as per above. 2. Thoracic aortic aneurysm, status post long thoracic aortic stent placement (see chest x-ray). 3. Breast cancer with lumpectomy. 4. Status post partial hysterectomy. 5. Status post hernia repair. 6. Hypertension. 7. COPD, with hypoxemic and hypercapnic respiratory failure. 8. Dyslipidemia. SOCIAL HISTORY: Notable for a [id number] history for tobacco. She has been a nonsmoker for several years. FAMILY HISTORY: Positive for strokes, hypertension, coronary artery disease, alcohol abuse, hypertension, and cancer. REVIEW OF SYSTEMS: As noted in the HPI, but is otherwise negative. PHYSICAL EXAMINATION: General: Reveals a well-developed, well-nourished, white female, who can converse in full sentences, but does appear to have mild work of breathing. She is sitting on the edge of the bed. OBJECTIVE: Vital Signs: Blood pressure 138/87, heart rate 84, respiratory rate 16, oxygen saturation 95% on 4 L per nasal cannula. HEENT: Pupils are equal and reactive. Oropharynx is clear. Neck: Supple. Chest: Reveals diminished breath sounds bilaterally, with diffuse wheezing. Cardiac: Regular rate. Normal S1, S2. Abdomen: Soft, without hepatosplenomegaly. Extremities: Without edema. LABORATORIES: Arterial blood gas on 3 L per nasal cannula reveals pH 7.48, pCO2 of 40, PO2 of 57, with a normal lactate. White blood count 10.72, hemoglobin 10.1, platelet count 176,000. Sodium 143, potassium 4.1, chloride 105, bicarbonate 24, BUN 18, creatinine 0.8. Chest x-ray reveals prior aortic aneurysm, vascular stent, hyperinflation, with flattening of the diaphragms and increased AP diameter, with no evidence of acute disease. IMPRESSION: A 77-year-old with an acute chronic obstructive pulmonary disease exacerbation, bronchitis. Acute hypoxemic respiratory failure and chronic hypercapnic respiratory failure. Chronic hypoxemic respiratory failure. The patient has significant bronchospasm and dyspnea with any movement. RECOMMENDATIONS: 1. Continue routine treatment for chronic obstructive pulmonary disease, as you are doing, including antibiotics, steroids, and nebulizer treatment. 2. Check the patient for influenza. 3. Continue deep venous thrombosis prophylaxis. 4. Consider gastric acid prophylaxis, given steroid requirements. 5. Additional recommendations pending hospital course. cc: Evans Vang MD
[2018-03-12] MEDS ORDERED: PHENERGAN IV PRN (03:56)
[2018-03-12] MEDS ORDERED: SODIUM CHLORIDE 0.9% INJ PRN (03:56)
[2018-03-12] MEDS: DUONEB (A & A) INH SCH ×6 (03:59→23:46)
[2018-03-12 05:13] LABS: ALLEN TEST YES; BE -1.3 mmoll (-3.0-3.0); BLOOD TYPE ARTERIAL; HCO3-(ACT) 23.8 mmoll (20.0-26.0); METHB 1.2 % (0.0-1.5); O2(CT) 20.2 mL/dL (15.0-23.0); O2HB 94.8 % (95.0-99.0); PO2(98.6) 92 mmHg (60-100); SAMPLE BLOOD; SAO2 97.5 % (95.0-100.0); THB 15.1 g/dL (11.5-17.4); pH(98.6) 7.29 (7.35-7.45)
[2018-03-12 05:21] LABS: MODALITY CANNULA; PCO2(98.6) 55 mmHg (35-45)
[2018-03-12 07:50] LABS: HEMOGLOBIN 11.6 g/dL (12.0-16.0); IMM GRAN# 0.04 X1000 (0.0-0.04); IMM GRAN% 0.2 % (0.0-0.5); LYMPH# 0.67 X1000 (1.2-3.4); LYMPH% 4.2 % (20.5-51.1); MCH 28.2 PG (27-31); MCHC 31.4 g/dL (33-37); MONO# 0.26 X1000 (0.11-0.59); MONO% 1.6 % (1.7-9.3); MPV 11.1 FL (7.4-10.4); NEUT# 15.15 X1000 (1.4-6.5); PLT 256 X1000 (130-400); RBC 4.11 XMIL (4.2-5.4); RDW 14.5 % (11.5-14.5); WBC 16.12 X1000 (4.8-10.8)
--- NOTE | 2018-03-12 08:10 | Diag Imaging Result Doc PS360 ---
EXAM: CHEST-PORTABLE INDICATION: dyspnea TECHNIQUE: One view COMPARISON: 03/10/2018 FINDINGS: Mild interstitial thickening is unchanged, likely chronic. No new consolidation is identified. Cardiac silhouette is stable. IMPRESSION: Stable chest. Electronically signed by Hugh Oreilly 03/12/2018 8:07 AM
[2018-03-12 08:18] LABS: CALCIUM 8.3 mg/dL (8.8-10.2); POTASSIUM 4.2 mmol/L (3.5-5.1)
[2018-03-12 08:51] LABS: BANDS 2 % (0-1); LYMPHS 6 % (21-51); SEGS 92 % (42-75)
[2018-03-12] MEDS: CELEXA PO SCH (08:55)
[2018-03-12] MEDS: NORVASC PO SCH ×3 (08:55→21:55)
--- NOTE | 2018-03-12 09:15 | EKG Report ---
Test Performed on : 03/12/2018 08:05:13 AM Test Reason : new onset afib Blood Pressure : / mmHG Vent. Rate : 146 BPM Atrial Rate : 127 BPM P-R Int : 000 ms QRS Dur : 082 ms QT Int : 300 ms P-R-T Axes : 000 057 241 degrees QTc Int : 467 ms Atrial fibrillation. with rapid ventricular response. Marked ST abnormality, possible inferolateral subendocardial injury Abnormal ECG When compared with ECG of 12-MAR-2018 08:04, (Unconfirmed) Sinus rhythm. has converted back to A-fib Confirmed by Deanne SARMIENTO, Regis Jay ([id number]) on 03/12/2018 12:49:45 PM
[2018-03-12] MEDS ORDERED: LOPRESSOR IV ONE (19:26)
--- NOTE | 2018-03-12 19:35 | PROGRESS NOTE ---
DATE: 03/12/2018 SUBJECTIVE: Today Ms. Jenkins refers to be doing a little better, but she is still remarkably wheezing and having some cough. She was also asked, and she was asking when she would be discharged. OBJECTIVE: Vital signs: Blood pressure is 154/66, pulse was 90, respirations 21, temperature is 98.1 degrees. The patient was saturating 95% on 3.5 L. General: Ms. Jenkins is a 77-year-old female. She was not in any cardiopulmonary distress. HEENT: Mucosa is pink and moist. Anicteric. Acyanotic. Neck: Supple. There was no JVD. No carotid bruit. Respiratory: Air entry was bilaterally reduced. There was a prolonged expiratory phase of respiration. There was also diffuse expiratory wheezing in both lung quesada. Did not hear any crackles. Cardiovascular: Regular rate and rhythm. No murmurs, no rubs, no gallops. GI: The abdomen was soft, nontender. Bowel sounds were present. There was no hepatosplenomegaly. Extremities: No pedal edema. Distal pulses are present. WINDOWS ARCHITECT: The patient is awake, alert, and oriented. There is no focal neurological deficit. LABORATORY DATA: WBC is 16.16, hemoglobin is 11.6, platelet count of 256,000. Chemistry is also reviewed and unremarkable. CURRENT MEDICATIONS: The patient's current medications include DuoNeb q.4h., amlodipine 5 mg b.i.d., atorvastatin 40 mg daily, Celexa 40 mg daily, Lovenox 40 mg subcu 24, Levaquin 500 q.12h., lisinopril 10 mg p.o. at bedtime, Solu-Medrol 60 mg IV q.8h., Zofran p.r.n., promethazine, and trazodone 50 mg p.o. at bedtime. ASSESSMENT: 1. Severe COPD with fibrosis in acute exacerbation. We will continue with the current bronchodilation, steroids, and antibiotics. Pulmonary Medicine has been on board. 2. Acute on chronic hypoxemic respiratory failure secondary to chronic obstructive pulmonary disease. The patient is on oxygen therapy. 3. Hypertension. We will continue with home medication. This is improved. 4. Clinical volume depletion. Improved. PLAN: In general, I think Ms. Jenkins is fairly stable, but she is still bronchospastic. We are going to continue with the current standard of care. The patient is pending evaluation today by Pulmonary Medicine. I do not think Ms. Jenkins is ready for discharge today. cc: Regis Painter MD
[2018-03-12] MEDS: LIPITOR PO SCH ×2 (19:52→21:55)
[2018-03-12] MEDS: PRINIVIL PO SCH ×2 (19:52→21:55)
[2018-03-12] MEDS: DESYREL PO SCH ×2 (19:53→21:55)
--- NOTE | 2018-03-12 22:24 | PROVIDER DOCUMENTATION ---
This chart was entered by Rosendo Levin Scribe, acting as scribe for Silvestre Oliva MD. HPI-Respiratory General - General Chief Complaint: Possible Sepsis-D Stated Complaint: SHORTNESS OF BREATH / BP ISSUES Time Seen by Provider: 03/10/18 18:23 Source: patient Allergies/Adverse Reactions: Patient Allergies Allergy/AdvReac Type Severity Reaction Status Date / Time acetaminophen [From Lortab] Allergy NAUSEA Verified 05/07/17 13:15 hydrocodone bitartrate * Allergy NAUSEA Verified 05/07/17 13:15 [From Lortab] Home Medications: Home Medication List Medication Instructions Recorded Confirmed Last Taken Type Atorvastatin Calcium [Lipitor] 40 mg PO QHS 01/18/14 03/11/18 05/07/17 History Citalopram [Celexa] 40 mg PO DAILY 01/18/14 03/11/18 05/07/17 History Glucosamin,Oqvreckko-Eacx-Dez7 1 each PO DAILY 01/18/14 05/07/17 05/07/17 History [Glucoten Caplet] Multivitamin with Minerals 1 each PO DAILY 01/18/14 05/07/17 05/07/17 History [Multiple Vitamin] Albuterol 2.5MG/Ipratrop 0.5MG 3 ml INH Q4H PRN PRN #10 neb 12/05/16 05/07/17 Rx [Duoneb (A & A)] Albuterol Sulfate Inhaler 2 puff INH QAM 05/07/17 05/07/17 05/07/17 History [Ventolin Hfa] Prednisone 5 mg PO QAM 05/07/17 03/11/18 05/07/17 History Trazodone [Desyrel] 50 mg PO QHS 05/07/17 03/11/18 1 Day Ago History ~05/06/17 Docusate Sodium 100 mg PO DAILY 05/10/17 05/10/17 Unknown History Hydroxyzine Pamoate 50 mg PO DAILY 05/10/17 03/11/18 Unknown History LISINOpril [Prinivil] 10 mg PO HS 05/10/17 03/11/18 05/07/17 History Albuterol 2.5MG/Ipratrop 0.5MG 3 ml INH Q4H PRN PRN #25 neb 05/13/17 Unknown Rx [Duoneb (A & A)] Amlodipine [Norvasc] 5 mg PO BID #60 tab 05/13/17 03/11/18 Unknown Rx Cefixime [Suprax] 400 mg PO DAILY #7 cap 05/13/17 Unknown Rx Hydralazine [Apresoline] 25 mg PO TID #90 tab 05/13/17 Unknown Rx Montelukast [Singulair] 10 mg PO QHS #60 tab 05/13/17 Unknown Rx - History of Present Illness-Resp Nature of Presenting Problem: Pt is a 77 y/o F presents to the ED with a 4 day hx of SOB, coughing with dark green sputum. She reports a hx of COPD and wearing home O2. She denies chest pain. Quality of Pain: reports: none Severity in ED: reports: moderate, severe Onset/Duration: reports: 4 days ago Timing: reports: still present, getting worse Exposure: reports: unknown cause Cough Quality/Degree: reports: productive cough Current Respiratory Medication Therapy: Initiated A/A nebulizer Associated Symptoms: reports: cough, shortness of breath. denies: fever/chills , hurts to breathe Similar Symptoms Previously?: Yes Recently seen or treated by another doctor?: Yes Review of Systems - Adult - REVIEW OF SYSTEMS - ADULT Constitutional: denies: chills, fever Eyes: reports: no symptoms reported Ears, Nose, Mouth & Throat: reports: no symptoms reported Cardiovascular: denies: chest pain, edema Respiratory: reports: cough, shortness of breath, wheezing Gastrointestinal: denies: abdominal pain, nausea, vomiting Genitourinary: denies: dysuria, discharge Musculoskeletal: denies: back pain, neck pain Integumentary: reports: no symptoms reported Neurological: denies: dizziness/vertigo, headache/migraines Psychiatric: reports: no symptoms reported Endocrine: reports: no symptoms reported Hematologic/Lymphatic: reports: no symptoms reported Allergic/Immunologic: reports: no symptoms reported All Other Systems: Reviewed and Negative Past History - Adult - PAST MEDICAL HISTORY-ADULT Review of Records: reports: Old Records Reviewed, Nursing Assessment Review, Medications Reviewed Major Childhood Illnesses: reports: denies history Cardiovascular: reports: HTN Respiratory: reports: asthma, COPD Gastrointestinal: reports: denies history Obstetrical/Gynecological: reports: other (R breast Ca) Genitourinary: reports: denies history Musculoskeletal: reports: denies history Neurological: reports: denies history Endocrine/Immune: reports: denies history Other Conditions: reports: denies history - PRIOR SURGERIES/PROCEDURES Surgical/Procedure History: reports: hysterectomy, hernia repair - IMMUNIZATION STATUS Childhood Immunizations: See Nurse Assessment Flu Vaccine: See Nurse Assessment - FAMILY HISTORY Family History: reviewed, not pertinent - SOCIAL HISTORY Smoking: non-smoker, quit greater than 1 year Living Situation: family Physical Exam-General - PHYSICAL EXAM-ADULT Initial Vital Signs Reviewed: Yes - CONSTITUTIONAL General Appearance: alert, mild distress (respiratory). negative: appears well (ill in appearance) - EYES Eyes: PERRL/EOMI, pink conjunctivae - HEAD, EARS, NOSE, MOUTH & THROAT HENMT: moist mucous membranes, normal ENT inspection, pharynx normal - NECK Neck: non-tender, full range of motion, supple, normal inspection - RESPIRATORY Respiratory: chest non-tender, respiratory distress, decreased breath sounds, wheezing (bialateral expiratory), increased rate. negative: normal breath sounds - CARDIOVASCULAR Cardiovascular: normal peripheral pulses, regular rate, rhythm - GASTROINTESTINAL (ABDOMEN) Abdominal Exam: normal bowel sounds, non tender, soft - MUSCULOSKELETAL Back Exam: normal inspection, no CVA tenderness, no vertebral tenderness Extremity: normal range of motion, non-tender, normal gait, normal inspection, no pedal edema - SKIN Integumentary: normal color, normal turgor, warm/dry - NEUROLOGIC Neurologic: grossly normal, no motor/sensory deficits - PSYCHIATRIC Psych/Mental Status: normal mood/affect, normal thought content, normal thought process, oriented x 3 Progress - PLAN OF CARE/RESULTS Progress/Plan/Lab Results: Orders Category Date Time Status Admit - [facility] Routine AdmDCTranf 03/10/18 23:53 Active Activity - Up with Assistance ORDERED Care 03/10/18 23:53 Active Cardiac Monitoring DIRECTED Care 03/10/18 18:16 Completed IV Insertion ORDERED Care 03/10/18 18:16 Completed IV Insertion ORDERED Care 03/10/18 20:44 Completed Intake and Output-Strict ORDERED Care 03/10/18 23:53 Active Notify MD of + Sepsis Screen NOW Care 03/10/18 18:16 Inactive Notify Physician As Ordered Care 01/21/19 18:16 Inactive Nursing- MD Consult Request Care 03/10/18 23:53 Active Nursing- Obtain EKG once Care 03/10/18 19:52 Completed Vital Signs Order Q 8-HR ASSESS Care 03/10/18 23:53 Completed Z-Document. for Tele Applied ORDERED Care 03/10/18 23:53 Completed Physician/Provider Consults Routine Cons 03/10/18 23:53 Ordered Heart Healthy Diet Diet 03/10/18 23:53 Active CHEST-2 VIEWS [RAD] Stat Exams 03/10/18 18:05 Completed ABG [RESP] Routine Lab 03/10/18 18:35 Completed BASIC METABOLIC PANEL [CHEM] Routine Lab 03/11/18 05:07 Completed BLOOD CULTURE [BLDCUL] Stat Lab 03/10/18 18:44 Results CBC WITH DIFF [HEME] Routine Lab 03/11/18 05:07 Completed CBC WITH DIFF [HEME] Stat Lab 03/10/18 18:20 Completed CK PROFILE [SP CHEM] Stat Lab 03/10/18 18:20 Completed COMPREHENSIVE METABOLIC PANEL [CHEM] Stat Lab 03/10/18 18:20 Completed D-DIMER [COAG] Stat Lab 03/10/18 18:20 Completed LACTATE, PLASMA [CHEM] Lab 03/10/18 23:50 Completed LACTATE, PLASMA [CHEM] Lab 03/11/18 02:10 Completed LACTATE, PLASMA [CHEM] Q3H Lab 03/10/18 18:50 Completed MAGNESIUM [CHEM] Stat Lab 03/10/18 18:20 Completed MAGNESIUM [CHEM] Stat Lab 03/10/18 18:50 Completed PHOSPHORUS [CHEM] Stat Lab 03/10/18 18:50 Completed PRO B-NATRIURETIC PEPTIDE Stat Lab 03/10/18 18:20 Completed PROTIME WITH INR [COAG] Stat Lab 03/10/18 18:20 Completed PTT [COAG] Stat Lab 03/10/18 18:20 Completed TROPONIN T Stat Lab 03/10/18 18:20 Completed TROPONIN T Stat Lab 03/10/18 18:50 Completed TSH Routine Lab 03/11/18 05:07 Completed URINALYSIS W/POSS RFLX CULT [URINALYSIS] Stat Lab 03/10/18 22:34 Completed 0.9% Sodium Chloride Inj [Ns] 1,000 ml Med 03/10/18 20:41 Discontinued .ROUTE As Directed 0.9% Sodium Chloride Inj [Ns] 1,000 ml Med 03/10/18 23:53 Discontinued IV 100 mls/hr 0.9% Sodium Chloride Inj [Ns] 1,000 ml Med 03/10/18 18:35 Discontinued IV 999 mls/hr 0.9% Sodium Chloride Inj [Ns] 1,000 ml Med 03/10/18 22:02 Discontinued IV 999 mls/hr Albuterol 2.5MG/Ipratrop 0.5MG [Duoneb (A & A)] Med 03/10/18 23:53 Active 3 ml INH RTQ4H Albuterol 2.5MG/Ipratrop 0.5MG [Duoneb (A & A)] Med 03/10/18 18:36 Discontinued 9 ml INH NOW ONE Aspirin Med 03/10/18 20:22 Discontinued 325 mg PO NOW ONE CefTRIAXONE [Rocephin] 1 gm Med 03/10/18 18:35 Discontinued 0.9% Sodium Chloride Inj [Ns] 50 ml IV NOW Dexamethasone [Decadron] Med 03/10/18 18:35 Discontinued 10 mg IV NOW ONE Diltiazem [Cardizem] Med 03/10/18 22:02 Discontinued 10 mg IV NOW ONE Enoxaparin [Lovenox] Med 03/10/18 23:53 Active 40 mg SUBQ Q24H Levofloxacin 500 mg/D5w [Levaquin 500 mg/D5w] Med 03/10/18 23:53 Active 500 mg in 100 ml IV Q24H Methylprednisolone Sod Succ [Solu-Medrol] Med 03/12/18 03:00 Active 60 mg IV Q8H Ondansetron [Zofran] Med 03/10/18 23:53 Active 4 mg IV Q4H PRN PRN Aerosol Treatments Routine Ot 03/10/18 18:36 Completed Aerosol Treatments Routine Oth 03/10/18 23:53 Completed Aerosol Treatments Stat Oth 03/10/18 18:36 Completed Aerosol Treatments Stat Oth 03/10/18 23:53 Completed Oxygen Device Stat Oth 03/10/18 18:16 Completed Telemetry [OM.EQ] Routine Oth 03/10/18 23:53 Active EKG [EKG] Stat Ther 03/10/18 18:05 Draft EKG [EKG] Stat Ther 03/10/18 19:52 Draft EKG [EKG] Stat Ther 03/10/18 20:36 Draft Transfer/Admit Order [TRANSFER] Routine Transfer 03/10/18 21:56 Completed Result Diagrams: 03/12/18 07:26 03/12/18 07:26 - EKG 1 Time of EKG reading by physician:: 19:58 EKG Read and Signed by:: Silvestre Oliva EKG Interpretation (*Must complete 3 of following elements*): Abnormal Rate: 140 Rhythm: Wide QRS tchycardia QRS: LBB 2 Time of EKG reading by physician:: 20:58 EKG Read and Signed by:: Silvestre Oliva EKG Interpretation (*Must complete 3 of following elements*): Abnormal Rate: 101 Rhythm: Sinus Tach otherwise normal ECG - XRAY 1 XRAY Study: Chest Impression: Abnormal (HISTORY: SOB TECHNIQUE: Chest two views COMPARISON: 02/17/2018 FINDINGS: The lungs are hyperexpanded. Increased AP diameter to the chest. The pulmonary vessels are small. Increased interstitial markings consistent with fibrosis. No consolidation. There are aortic vascular stents IMPRESSION: Severe emphysema with pulmonary fibrosis Electronically signed by Franklyn Tanner 03/10/2018 6:40 PM) Comparison with other Films: no changes (02/17/18) - CONSULTS/PCP/HOSPITALIST Notification #1 *Consult/PCP/Hospitalist*: Hospitalist Dr. Shukri Krueger Time Discussed: 20:13 Reason/Comments: admission, cardiology recommendations disucssed in details with Dr. krueger. Consult Disposition: Will see in ED (Ask for D Dimer.) #2 Consult: Dr. Fontana Time Discussed: 20:05 Consult Disposition: Admit (Cardiology (after reviewing 3 EKGs) think this is Atrial Flutter and the wide QRS is rate related, common in COPD. Advise with fluid and Monitor since it is resolved spontaneously.) Departure - Departure Date of Disposition Decision: 03/10/18 Time of Disposition Decision: 20:13 DIAGNOSIS: COPD exacerbation Acute and chronic respiratory failure Qualifiers: Respiratory failure complication: hypoxia Qualified Code(s): J96.21 - Acute and chronic respiratory failure with hypoxia Atrial flutter Qualifiers: Atrial flutter type: unspecified Qualified Code(s): I48.92 - Unspecified atrial flutter Disposition: ADMITTED INPATIENT 09 Certified Medical Emergency: Emergent Condition: Serious - Critical Care Note This patient required my direct & personal management of CC.: Yes Total Time (mins): 30 Critical Care Statement: This patient required my direct personal management to treat or rule out processes, the absence of which, could potentiallly result in sudden, clinically significant life or limb threatening deterioration. Attestation - Physician/ DIPTI Attestation Patient care was provided by Advanced Practice Provider:: No The physician spent face to face time with patient:: Yes Advanced Practice Provider documentation review:: Supervising physician onsite and consulted in the evaluation and care of this patient. The physician did have a face to face encounter with the patient. This chart was documented by the indicated scribe, (Rosendo Levin Scribe) and accurately reflects the services I performed and decisions made by me, Silvestre Oliva MD, as attested by the provider's signature.
[2018-03-12] MEDS: LEVAQUIN 500 MG/D5W 500 MG/100 ML IVPB IV SCH (23:21)
[2018-03-12] MEDS: LOVENOX SUBQ SCH (23:22)
[2018-03-13] MEDS: DUONEB (A & A) INH SCH ×6 (04:06→23:15)
[2018-03-13] MEDS: SOLU-MEDROL IV SCH ×3 (04:25→19:46)
[2018-03-13 05:26] LABS: ALLEN TEST YES; BE 2.4 mmoll (-3.0-3.0); BLOOD TYPE ARTERIAL; HCO3-(ACT) 26.6 mmoll (20.0-26.0); METHB 1.6 % (0.0-1.5); O2(CT) 13.1 mL/dL (15.0-23.0); PCO2(98.6) 49 mmHg (35-45); PO2(98.6) 57 mmHg (60-100); SAMPLE BLOOD; SAO2 91.3 % (95.0-100.0); THB 10.5 g/dL (11.5-17.4); pH(98.6) 7.37 (7.35-7.45)
[2018-03-13] MEDS: LANOXIN IV SCH (05:29)
[2018-03-13 05:32] LABS: MODALITY CANNULA; O2HB 88.4 % (95.0-99.0)
--- NOTE | 2018-03-13 05:50 | PULMONOLOGY PROGRESS NOTE ---
DATE: 03/12/2018 SUBJECTIVE: Patient is awake, alert, and conversant. She reports she has had a pretty good day. Her shortness of breath has diminished along with a decrease in her cough. OBJECTIVE: Vital Signs: BP 157/59, heart rate 109, respiratory rate 17, oxygen saturation 94% on nasal cannula. HEENT: Pupils are equal and reactive. Oropharynx is clear. Neck: Supple. Chest: Reveals markedly diminished breath sounds bilaterally with scattered wheezing. Air flow is slightly improved. Cardiac: Regular rate. Abdomen: Soft and without hepatomegaly. Extremities: Without edema. LABORATORIES: Chest x-ray this morning: pH 7.29, pCO2 of 55, pO2 of 92. Sodium 143, potassium 4.2, chloride 103, bicarbonate 26, BUN 33, creatinine 1.0. IMPRESSION: A 77-year-old with acute chronic obstructive pulmonary disease exacerbation, acute hypoxemic respiratory failure, with evidence of acute hypercapnic respiratory failure this morning. The patient has qualified for the Trilogy in the past, but does not routinely wear it. Clinically, she appears to be improving and does not want to use the BiPAP. RECOMMENDATION: 1. Continue current treatment for COPD exacerbation. 2. Initiate BiPAP if she has evidence of clinical deterioration. 3. Followup arterial blood gas tomorrow. Would be reluctant to discharge her until her bronchospasm has diminished, and she has had some improvement in her arterial blood gas. cc: Evans Vang MD
--- NOTE | 2018-03-13 07:08 | Diag Imaging Result Doc PS360 ---
EXAM: CHEST-PORTABLE 03/13/2018 HISTORY: dyspnea TECHNIQUE: AP portable at 0623 COMMENT: There is some minimal atelectasis in the left base. The appearance of the chest has otherwise not changed significantly since 03/12/2018. IMPRESSION: Left lower lobe atelectasis. Electronically signed by Dylan North 03/13/2018 7:06 AM
[2018-03-13 07:45] LABS: ALB/GLOB RATIO 1.4; ALBUMIN 3.6 g/dL (3.5-5.0); CALCIUM 8.3 mg/dL (8.8-10.2); CREATININE 1.1 mg/dL (0.5-0.9); MAGNESIUM 2.2 mg/dL (1.5-2.7); POTASSIUM 3.8 mmol/L (3.5-5.1); TOTAL BILIRUBIN 0.22 mg/dL (0.20-1.00); TOTAL PROTEIN 6.2 g/dL (6.3-8.3)
[2018-03-13] MEDS: NORVASC PO SCH (09:58)
[2018-03-13] MEDS: CELEXA PO SCH (09:58)
--- NOTE | 2018-03-13 14:49 | PROGRESS NOTE ---
DATE: 03/13/2018 SUBJECTIVE: This morning Ms. Jenkins referred to be doing fairly okay. I understand that she has been going into atrial fibrillation every now and then. She was evaluated last night by the night team. She denies any chest pain, and according to her, shortness of breath is actually getting better. OBJECTIVE: Vital signs: Blood pressure is 148/61, pulse is 84, respirations 18, temperature 97.6 degrees the patient was saturating about 95% on 3.5 L of oxygen. General: Ms. Jenkins is a 77-year- old female. She is in bed. She was not in any cardiopulmonary distress. HEENT: Mucosa was pink and moist. Anicteric. Acyanotic. Neck: Supple. Chest: Air entry was bilaterally reduced. There is still some end expiratory wheezing and some bibasilar crackles. Cardiovascular: Irregularly irregular but seems to be rate controlled no gallops. Gastrointestinal: Abdomen is soft, nontender. Bowel sounds present. No hepatosplenomegaly. Extremities: No pedal edema. Distal pulses are present. Central nervous system: Patient is awake, alert, oriented. There is no focal neurological deficit. DIAGNOSTIC DATA: PH is 7.37, pCO2 is 49, PO2 is 57, bicarbonate is reviewed. BUN went up to 50 and creatinine is 1.1. A chest x-ray did show left lower lobe atelectasis. ASSESSMENT: 1. Severe chronic obstructive pulmonary disease (COPD) with fibrosis in acute exacerbation. We will continue with the current standard of care. Patient is also being seen by Pulmonary Medicine. 2. Acute on chronic hypoxemic respiratory failure secondary to chronic obstructive pulmonary disease (COPD) exacerbation. Noted. 3. Hypertension, controlled. 4. Paroxysmal atrial fibrillation. It looks like this is the first time this has been documented. The patient did not seem to know about this. Her EKG yesterday at 0805 did show atrial fibrillation with rapid ventricular response (RVR); however, a repeat EKG this morning actually shows her rate is controlled, sinus, with occasional premature atrial contractions (PACs). Just a while ago, I was notified the patient had a pulse rate of 128. I will start the patient on diltiazem 30 mg 3 times q.6 h. Echocardiogram has already been ordered, and we will get Cardiology to evaluate the patient. cc: Regis Painter MD
[2018-03-13] MEDS ORDERED: CARDIZEM IV ONE (17:32)
[2018-03-13] MEDS: LOVENOX SUBQ SCH (17:59)
[2018-03-13] MEDS ORDERED: LOVENOX SUBQ SCH (18:00)
[2018-03-13] MEDS: CARDIZEM PO SCH (19:46)
[2018-03-13] MEDS: PRINIVIL PO SCH (19:46)
[2018-03-13] MEDS: DESYREL PO SCH (19:47)
[2018-03-13] MEDS: LIPITOR PO SCH (19:47)
[2018-03-13] MEDS: COREG PO SCH (19:47)
--- NOTE | 2018-03-13 20:42 | CARDIOLOGY CONSULTATION ---
DATE: 03/13/2018 CHIEF COMPLAINT ON PRESENTATION TO HOSPITAL: Shortness of breath. REASON FOR OUR CONSULTATION: New onset atrial fibrillation. HISTORY OF PRESENT ILLNESS: Ms. Jenkins is a 77-year-old female with a history of advanced COPD, normally follows with Dr. Vang. She presented with complaints of around 3 to 4 days of worsening cough and cough productive of thick, yellowish sputum. She denies any fevers. She reported some wheezing at home which is more prominent for her. She is on home oxygen therapy. She reports no recent sick contacts or issues with fever. She has not had any chest pain. She denies any palpitations. She has not had any orthopnea. She is lying flat in bed while talking to me. PAST MEDICAL HISTORY: 1. Significant for severe COPD. She apparently uses home oxygen therapy as well as a Trilogy device. She is not compliant with this. 2. History of thoracic aortic aneurysm with previous intervention by Dr. Martin. The last visit with him was in 2015. 3. Previous breast cancer with lumpectomy. 4. Partial hysterectomy. 5. Hernia repair. 6. Hypertension. 7. Hyperlipidemia. SOCIAL HISTORY: She has a 50 pack-year history of tobacco. Nonsmoker for many years. FAMILY HISTORY: Stroke, hypertension, coronary artery disease. REVIEW OF SYSTEMS: A 10-system review of systems is negative except for those as mentioned in HPI. PHYSICAL EXAMINATION: Vital Signs: She is afebrile. Heart rate during my examination was in the 90s. Over the last couple of days her heart rates seemed to be primarily in the 90s to low 100s. Blood pressure 146/50. General: She is in no acute distress. HEENT: Oropharynx is moist. Poor dentition. Her eye examination is pink conjunctivae. White sclerae. Neck: Examination shows no obvious thyromegaly or thyroid tenderness. Cardiovascular: She sounds to be in a regular rate and rhythm. He she has no obvious murmurs present. She has no lower extremity edema. Her current EKG demonstrates sinus rhythm. Chest: Notable for a prolonged expiratory phase and marked bilateral end-expiratory wheezes. She has no increased work of breathing. She is on nasal cannula oxygen. Abdomen: Soft, nontender. She has no obvious organomegaly. Skin: Warm and dry throughout, without any rashes. Neurologic: Moving all extremities well. She has no lateralizing deficits. Psychiatric: She is alert, oriented and pleasant. PERTINENT DATA: Her EKG on the at 181 shows sinus rhythm. Subsequent EKG on the at 1958 shows a wide complex tachycardia in the pattern of a bundle branch block. No clear evidence of P-wave activity on this. The rate was around 140 beats per minute. Next EKG on the at 1039 shows sinus rhythm, again in a narrow complex. Next EKG on the at 1548 shows sinus rhythm, no ischemic changes. Final EKG on the at 8:05 a.m. shows rapid atrial fibrillation, rate of 146 beats per minute. Narrow complex. Most recent chest x-ray demonstrates left lower lobe atelectasis. Her white count yesterday was 16, hematocrit 37, platelet count 256,000. She has a 2% bandemia. ABG today shows a pH of 7.37, pCO2 49, PO2 of 57, that is on an FiO2 of 3 L per nasal cannula. Sodium 143, potassium 3.8, BUN 52, creatinine 1.1. Her troponin is negative. Her proBNP is 891. Her albumin is 3.6, TSH on the was normal at 1.05. ASSESSMENT: Ms. Jenkins is a 77-year-old female with new onset atrial fibrillation here with a severe COPD exacerbation. PLAN: She has had adjustments in her medications, including the addition of diltiazem, which I agree with. We will continue her on the carvedilol. Her hematocrit is 37 and appears relatively stable, actually higher than the previous few days. We will plan on increasing her Lovenox to 1 mg/kg b.i.d. Her GFR appears to be 48. We will check an echocardiogram. cc: Oneal Shah MD
[2018-03-13] MEDS: LEVAQUIN 500 MG/D5W 500 MG/100 ML IVPB IV SCH (23:43)
--- NOTE | 2018-03-14 01:57 | PULMONOLOGY PROGRESS NOTE ---
DATE: 03/13/2018 SUBJECTIVE: The patient reports she is feeling better. She is having some paroxysms of cough with shortness of breath. She has had episodic atrial fibrillation and is being evaluated by Cardiology. OBJECTIVE: Blood pressure 146/50, heart rate 103, respiratory rate 22, oxygen saturation 95%. HEENT: Pupils are equal and reactive. Oropharynx is clear. Neck: Supple. Chest: Reveals prolonged expiratory phase with scattered wheezing. Air flow is better than yesterday evening. Cardiac exam: S1, S2. Increased rate, irregular rhythm. Abdomen: Obese and soft. Extremities: Trace edema. LABORATORIES: Chest x-ray reveals minimal atelectasis at the left base. Sodium 143, potassium 3.8, chloride 103, bicarbonate 27, BUN 52, creatinine 1.1. Arterial blood gas reveals a pH of 7.37, pCO2 of 49, pO2 of 57. IMPRESSION: A 77-year-old with severe chronic obstructive pulmonary disease with an acute chronic obstructive pulmonary disease exacerbation. The patient has acute hypoxemic and acute hypercapnic respiratory failure. She has had some clinical improvement. She is having some paroxysm of cough along with intermittent atrial fibrillation. She has improved over her admission evaluation. RECOMMENDATIONS: 1. Continue current treatment for COPD exacerbation. 2. Consider BiPAP if she has clinical deterioration. 3. Consider discharge on Saturday or Saturday if she has continued clinical improvement [*] cc: Evans Vang MD
[2018-03-14] MEDS: DUONEB (A & A) INH SCH ×6 (03:10→23:24)
[2018-03-14] MEDS: COREG PO SCH ×3 (04:21→20:13)
[2018-03-14] MEDS: PRINIVIL PO SCH ×2 (04:22→20:13)
[2018-03-14] MEDS: DESYREL PO SCH ×2 (04:28→20:13)
[2018-03-14] MEDS: LIPITOR PO SCH ×2 (04:28→20:13)
[2018-03-14] MEDS: CARDIZEM PO SCH ×4 (04:29→20:13)
[2018-03-14] MEDS: SOLU-MEDROL IV SCH ×3 (04:29→20:12)
[2018-03-14] MEDS: ZOFRAN IV PRN (05:26)
[2018-03-14] MEDS: LOVENOX SUBQ SCH (05:27)
[2018-03-14 08:13] LABS: AGAP 11; ALB/GLOB RATIO 1.6; ALBUMIN 3.9 g/dL (3.5-5.0); ALKALINE PHOSPHATASE 54 U/L (32-104); BUN 38 mg/dL (8-22); CALCIUM 8.8 mg/dL (8.8-10.2); CHLORIDE 101 mmol/L (98-107); COSMO 294; CREATININE 0.8 mg/dL (0.5-0.9); ESTIMATED GFR > 60; GLUCOSE 127 mg/dL (70-104); GOT 21 U/L (10-30); GPT 24 U/L (10-36); MAGNESIUM 2.2 mg/dL (1.5-2.7); PHOSPHORUS 3.2 mg/dL (2.7-4.5); POTASSIUM 4.3 mmol/L (3.5-5.1); SODIUM 142 mmol/L (136-145); TCO2 30 mmol/L (25-35); TOTAL BILIRUBIN 0.34 mg/dL (0.20-1.00); TOTAL PROTEIN 6.4 g/dL (6.3-8.3)
[2018-03-14 08:35] LABS: BASO# 0.02 X1000 (0.0-0.2); BASO% 0.1 % (0.0-0.8); HEMATOCRIT 34.9 % (37.0-47.0); IMM GRAN# 0.25 X1000 (0.0-0.04); IMM GRAN% 1.6 % (0.0-0.5); LYMPH# 0.79 X1000 (1.2-3.4); MCH 28.4 PG (27-31); MCHC 31.5 g/dL (33-37); MCV 89.9 FL (81-99); MONO# 0.51 X1000 (0.11-0.59); MONO% 3.2 % (1.7-9.3); MPV 10.8 FL (7.4-10.4); NEUT# 14.21 X1000 (1.4-6.5); NEUT% 90.1 % (42.2-75.2); PLT 272 X1000 (130-400); RBC 3.88 XMIL (4.2-5.4); RDW 14.1 % (11.5-14.5); WBC 15.78 X1000 (4.8-10.8)
[2018-03-14 08:37] LABS: BANDS 6 % (0-1); LYMPHS 6 % (21-51); MONO 2 % (1-9); SEGS 86 % (42-75)
[2018-03-14] MEDS: CELEXA PO SCH (09:33)
--- NOTE | 2018-03-14 10:06 | ECHO REPORT ---
ORDER DATE: 03/13/2018 MEASUREMENTS: 1. Left ventricular end-diastolic 4.6. 2. End systolic murmur 2.5 3. Septal thickness 1.2. 4. Posterior wall thickness 1.0. 5. Aortic root 3.3. 6. Left atrium 3.9. SUMMARY: 1. Technically difficult study due to limited acoustic window quality. 2. Aortic valve is without evidence of structural abnormality and opens adequately on 2- dimensional images. Peak gradient across aortic valve is approximately 10 mmHg. Moderate mitral annular calcification is demonstrated. There is trace mitral regurgitation. Tricuspid valve is without evidence of structural abnormality while pulmonic valves all demonstrated. The aortic root is normal in size. 3. Normal left ventricular dimensions suggested. Estimated left ventricular ejection fraction appears to be at least 70%. No obvious regional wall motion abnormality can be appreciated. Doppler suggests grade 1 left ventricular diastolic function. The left atrium is upper normal in size. Right atrium and right ventricle grossly normal size with grossly preserved right ventricular systolic function. 4. No pericardial effusion. 5. Appearance of inferior vena cava suggests normal central venous pressure. cc: MD Rio Gonsales CRNP
--- NOTE | 2018-03-14 12:51 | CARDIOLOGY PROGRESS NOTE ---
DATE: 03/14/2018 SUBJECTIVE: Ms. Jenkins reports she is feeling better today. She says her breathing has improved. She is not having any palpitations. OBJECTIVE: Vital Signs: The patient is afebrile. Heart rate 87, blood pressure 183/77. She appears to be in sinus on telemetry. General: No acute distress. Cardiovascular: She sounds to be in a regular rate and rhythm. She has no murmurs, no lower extremity edema. Chest: Exam has mild end-expiratory wheezes that are improved from yesterday. No increased work of breathing. Abdomen: Soft, nontender. PERTINENT DATA: White count 15.7, hematocrit 34, platelet count is 272. She has a bandemia of 6. Her sodium is 142, potassium 4.3. BUN 38 and creatinine 0.8. She did have an echocardiogram performed on the - showing an ejection fraction of 70%. Trace mitral regurgitation. ASSESSMENT: Ms. Jenkins is a 77-year-old female with severe chronic obstructive pulmonary disease exacerbation, who went into atrial fibrillation. PLAN: She appears to be in sinus right now. She is on a beta-aime and diltiazem which I agree with currently. She may eventually be transitioned over to once-daily diltiazem in the future. I will stop the Lovenox and place her on Eliquis 5 mg b.i.d. cc: Oneal Shah MD
--- NOTE | 2018-03-14 16:05 | PROGRESS NOTE ---
DATE: 03/14/2018 SUBJECTIVE: This morning Ms. Jenkins refers to be doing a lot better. Still has some baseline shortness of breath but no chest pain. OBJECTIVE: Vitals: Blood pressure is 173/67, pulse is 63, respiration is 18, temperature is 97.9 degrees. General: Ms. Jenkins is a 77-year-old female she was in bed, she did not seems to be in cardiopulmonary distress. Mucosa is pink and moist. Anicteric. Acyanotic. Neck: Supple. Chest: Air entry was bilaterally reduced, there is still some distant wheezing and prolonged expiratory phase of respiration, a few crackles posterior. Cardiovascular: Regular rate and rhythm. There is no murmurs, no rubs, no gallops. Abdomen: Soft, nontender. Bowel sounds present. Extremities: No pedal edema. Distal pulses present. 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 There is no focal neurological deficit. LABORATORY DATA: WBC is 15.74, hemoglobin is 11.0, platelet count of 272,000. Chemistry is also reviewed, is unremarkable. An echocardiogram showed an ejection fraction of 70% maybe grade 1 diastolic dysfunction. ASSESSMENT: 1. 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 Pulmonary medicine on board. 2. Acute on chronic hypoxemic respiratory failure secondary to chronic obstructive pulmonary disease exacerbation improving. 3. Hypertension is controlled. 4. Paroxysmal atrial fibrillation. Patient currently is in normal sinus rhythm with normal rate. She has been evaluated by Cardiology. Echocardiogram has been unremarkable. TSH is also normal. Patient is currently on calcium channel aime and anticoagulation has been switched to Eliquis 5 mg b.i.d. DISPOSITION: Hopefully tomorrow pending further recommendations from the other subspecialties. cc: Regis Painter MD
[2018-03-14] MEDS: ELIQUIS PO SCH (20:13)
--- NOTE | 2018-03-15 00:44 | PULMONOLOGY PROGRESS NOTE ---
DATE: 03/14/2018 SUBJECTIVE: The patient was seen around 7 p.m. She was sleeping. I called her name, but she did not wake. OBJECTIVE: Vital Signs: BP 173/67, heart rate 78, respiratory rate 20, oxygen saturation 95% on nasal cannula. She has been afebrile for the last 24 hours. HEENT: Pupils are equal and reactive. Oropharynx appears clear, but not fully examined. Neck: Supple. Chest: Revealed prolonged expiratory phase, with faint wheeze. Cardiac: S1-S2. Abdomen: Soft, and without hepatosplenomegaly. Extremities: Without edema. LABORATORIES: White blood count 15.78, hemoglobin 11.0, platelet count 272,000. Sodium 142, potassium 4.3, chloride 101, bicarbonate 30, BUN 38, creatinine 0.8. IMPRESSION: A 77-year-old with severe chronic obstructive pulmonary disease, with acute chronic obstructive pulmonary disease exacerbation, acute hypoxemic and acute hypercapnic respiratory failure. She continues to have clinical improvement, and she is approaching her baseline by report. She has had some intermittent atrial fibrillation. RECOMMENDATIONS: 1. Continue treatment for chronic obstructive pulmonary disease exacerbation. 2. Consider discharge tomorrow if she has continued improvement. cc: Evans Vang MD
[2018-03-15] MEDS: DUONEB (A & A) INH SCH ×2 (03:36→07:42)
[2018-03-15] MEDS: CARDIZEM PO SCH ×2 (05:47→11:33)
[2018-03-15] MEDS: LEVAQUIN 500 MG/D5W 500 MG/100 ML IVPB IV SCH (05:48)
[2018-03-15] MEDS: SOLU-MEDROL IV SCH ×2 (05:48→11:33)
[2018-03-15 08:08] VITALS: BP 174/81
[2018-03-15] MEDS: CELEXA PO SCH (09:18)
[2018-03-15] MEDS: ELIQUIS PO SCH (09:18)
[2018-03-15] MEDS: COREG PO SCH (09:18)
--- NOTE | 2018-03-15 23:47 | DISCHARGE SUMMARY ---
ADMISSION DATE: 03/10/2018 DISCHARGE DATE: 03/15/2018 DISPOSITION: Home. FOLLOWUP: 1. ZAINAB Rainey. 2. Dr. Vang. CONSULTATIONS DURING THIS ADMISSION: Pulmonary Medicine was consulted. Patient was seen by Dr. Vang. Cardiology was also consulted. Patient was seen by Dr. Oneal Shah. INVASIVE PROCEDURES DONE DURING THIS ADMISSION: None. IMAGING STUDIES OF SIGNIFICANCE: A chest x-ray was done initially, which showed severe emphysema with pulmonary fibrosis. Multiple x-rays were done following up. An echocardiogram was done, which showed an ejection fraction of 70%, with some grade 1 diastolic dysfunction. ADMISSION DIAGNOSES: 1. Bopgq-zu-ymywaqu respiratory failure. 2. Chronic obstructive pulmonary disease, in exacerbation. 3. Hypertension. DIAGNOSES AT THE TIME OF DISCHARGE: 1. Severe chronic obstructive pulmonary disease, with fibrosis, in acute exacerbation, improved. 2. Ygwfs-bt-[id number] hypoxemic respiratory failure, secondary to chronic obstructive pulmonary disease. 3. Hypertension, controlled. 4. New-onset of paroxysmal atrial fibrillation, currently rate controlled. The patient is on beta aime and diltiazem, and is also on Eliquis for stroke prophylaxis. PRESENTING COMPLAINT: Shortness of breath. HISTORY OF PRESENTING COMPLAINT: Ms. Jenkins is a 77-year-old female, who is known to have advanced COPD. Followed up with Dr. Vang and her primary care doctor. The patient refers that for the past 2 days prior to admission, she has been having more shortness of breath, a productive cough, which was not improving with home remedies, so she came to the emergency department. She was evaluated, was found to be in COPD exacerbation. Was also found to be in hypoxemic respiratory failure, so she was admitted for further medical care. HOSPITAL COURSE: Ms. Jenkins was admitted to the medical floor under telemonitoring. She was started on IV antibiotics, steroids, and bronchodilation therapy. Pulmonary Medicine was consulted. Throughout the hospital course, Ms. Jenkins continued to improve from a respiratory standpoint. However, about 3 days into admission, she had a couple rounds of atrial fibrillation, but then at some point it became persistent, with a rate above 120. She was given a one-time dose of IV diltiazem, which controlled it, and she was started on both diltiazem p.o. and carvedilol. Ms. Jenkins continued to improve. An echocardiogram was done, which did not show any abnormality. Her troponins were also negative. Cardiology was consulted. They did put her on Lovenox initially, and was switched to Eliquis for stroke prophylaxis. This morning, Ms. Jenkins referred to be doing a lot better. Shortness of breath, cough have all improved. The patient was evaluated yesterday by Pulmonary Medicine, and they thought that she could be discharged today if she was stable. This morning, her vitals: Blood pressure is 174/81, pulse is 78, respirations 18, temperature is 98.3 degrees. Physical exam is fairly unremarkable, except for prolonged expiratory phase of respiration, and also some faint wheezing, which according to the patient she is always wheezing. Ms. Jenkins is fairly stable today for discharge, and all the discharge instructions have been discussed with her, and she voices understanding. Ms. 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 TIME SPENT FOR DISCHARGE: 35 minutes. cc: MD Mary Anne Washington CRNP James E. Boyle, MD
== END 2018-03-15 12:04 | disposition home or self-care (01) | DRG 190 ==
LOC: ED 17:54 → EDIPHOLD 23:18 → SUATTDRO 23:18 → 3N 03-11 22:58
PROVIDERS: ATTEND Internal Medicine
CPT/HCPCS: 51702; 71010; 71020; 71045; 71046; 80048; 80053; 81001; 82550; 82553; 82805; 83605; 83735; 83880; 84100; 84443; 84484; 85025; 85379; 85610; 85730; 87040; 87275; 87276; 87804; 93005; 93010; 93306; 94640; 94761; 96361; 96365; 96367; 96372; 96375; 96376; 99285; A9270; J0360; J0696; J1650; J1956; J2270; J2405; J2550; J2930; J7030

== ENCOUNTER 2018-03-21 20:26 | Inpatient (IN) ==
[2018-03-21] MEDS ORDERED: PROTONIX IV ONE (20:58)
[2018-03-21] MEDS ORDERED: SODIUM CHLORIDE 0.9% INJ ONE (20:58)
[2018-03-21] MEDS ORDERED: ZOFRAN IV ONE (20:59)
[2018-03-21 21:12] LABS: INR 1.19
[2018-03-21 21:13] LABS: PTT 28.1 Seconds (22.3-41.8)
[2018-03-21 21:17] LABS: BASO# 0.01 X1000 (0.0-0.2); EOS# 0.17 X1000 (0.0-0.7); EOS% 0.8 % (0.0-10.0); HEMATOCRIT 37.1 % (37.0-47.0); HEMOGLOBIN 11.4 g/dL (12.0-16.0); IMM GRAN# 0.07 X1000 (0.0-0.04); IMM GRAN% 0.3 % (0.0-0.5); LYMPH# 1.21 X1000 (1.2-3.4); LYMPH% 5.5 % (20.5-51.1); MCH 27.9 PG (27-31); MCHC 30.7 g/dL (33-37); MCV 90.9 FL (81-99); MONO# 0.81 X1000 (0.11-0.59); MONO% 3.7 % (1.7-9.3); MPV 12.2 FL (7.4-10.4); NEUT# 19.79 X1000 (1.4-6.5); NEUT% 89.7 % (42.2-75.2); PLT 161 X1000 (130-400); RBC 4.08 XMIL (4.2-5.4); RDW 14.6 % (11.5-14.5); WBC 22.06 X1000 (4.8-10.8)
[2018-03-21 21:30] LABS: AGAP 9; ALB/GLOB RATIO 1.5; ALBUMIN 3.7 g/dL (3.5-5.0); ALKALINE PHOSPHATASE 38 U/L (32-104); BUN 37 mg/dL (8-22); CALCIUM 8.6 mg/dL (8.8-10.2); CHLORIDE 104 mmol/L (98-107); COSMO 305; CREATININE 0.9 mg/dL (0.5-0.9); ESTIMATED GFR > 60; GLUCOSE 141 mg/dL (70-104); GOT 11 U/L (10-30); GPT 14 U/L (10-36); MAGNESIUM 2.2 mg/dL (1.5-2.7); POTASSIUM 4.4 mmol/L (3.5-5.1); SODIUM 148 mmol/L (136-145); TCO2 35 mmol/L (25-35); TOTAL BILIRUBIN 0.54 mg/dL (0.20-1.00); TOTAL PROTEIN 6.2 g/dL (6.3-8.3)
[2018-03-21] MEDS ORDERED: NS 50 ML ONE (21:41)
[2018-03-21] MEDS ORDERED: NS 500 ML IV ONE (22:37)
[2018-03-21] MEDS ORDERED: NS 500 ML ONE (22:39)
[2018-03-22] MEDS ORDERED: DUONEB (A & A) INH ONE (01:45)
[2018-03-22 01:59] LABS: URINE SOURCE CATH
--- NOTE | 2018-03-22 02:00 | PROVIDER DOCUMENTATION ---
This chart was entered by Leticia Torre Scribe, acting as scribe for Jennie Florentino MD. HPI-Abdominal Pain/GI Problem - General Chief Complaint: GI Bleed Stated Complaint: gi bleed Time Seen by Provider: 03/21/18 20:49 Source: patient Allergies/Adverse Reactions: Patient Allergies Allergy/AdvReac Type Severity Reaction Status Date / Time hydrocodone bitartrate * Allergy Mild NAUSEA Verified 03/21/18 21:57 [From Lortab] Home Medications: Home Medication List Medication Instructions Recorded Confirmed Last Taken Type Atorvastatin Calcium [Lipitor] 40 mg PO QHS 01/18/14 03/21/18 03/19/18 History Citalopram [Celexa] 40 mg PO DAILY 01/18/14 03/21/18 03/19/18 History Glucosamin,[id number]-Xsjs-Vip0 1 each PO DAILY 01/18/14 03/21/18 03/19/18 History [Glucoten Caplet] Multivitamin with Minerals 1 each PO DAILY 01/18/14 03/21/18 03/19/18 History [Multiple Vitamin] Albuterol 2.5MG/Ipratrop 0.5MG 3 ml INH Q4H PRN PRN #10 neb 12/05/16 03/21/18 Rx [Duoneb (A & A)] Albuterol Sulfate Inhaler 2 puff INH QAM 05/07/17 03/21/18 03/19/18 History [Ventolin Hfa] Prednisone 5 mg PO QAM 05/07/17 03/21/18 03/19/18 History Trazodone [Desyrel] 50 mg PO QHS 05/07/17 03/21/18 03/19/18 History Docusate Sodium 100 mg PO DAILY 05/10/17 03/21/18 03/19/18 History Hydroxyzine Pamoate 50 mg PO DAILY 05/10/17 03/21/18 03/19/18 History LISINOpril [Prinivil] 10 mg PO HS 05/10/17 03/21/18 03/19/18 History Hydralazine [Apresoline] 25 mg PO TID #90 tab 05/13/17 03/21/18 03/19/18 Rx Montelukast [Singulair] 10 mg PO QHS #60 tab 05/13/17 03/21/18 03/19/18 Rx Apixaban [Eliquis] 5 mg PO BID #60 tab 03/15/18 03/21/18 03/19/18 Rx Carvedilol [Coreg] 6.25 mg PO BID #120 tab 03/15/18 03/21/18 03/19/18 Rx Diltiazem C.d. [Cardizem Cd] 120 mg PO DAILY #90 cap 03/15/18 03/21/18 03/19/18 Rx Levofloxacin [Levaquin] 500 mg PO DAILY #7 tab 03/15/18 03/21/18 03/19/18 Rx Prednisone [Deltasone] 20 mg PO DAILY #5 tab 03/15/18 03/21/18 03/19/18 Rx - History of Present Illness-ABD Nature of Presenting Problems: 77/F presents to ED w/ 2 days of n/v. Today she sts that the emesis was black. Pt is currenly on Eloquis Abdominal Pain Onset Location: reports: generalized abdomen Pain Radiation: reports: no radiation Quality of Pain: reports: other (nausea) Severity in ED: reports: moderate Onset/Duration: reports: 2 days ago Timing: reports: still present Activities at Onset: reports: none Exposure to sick contacts?: No Associated Symptoms: reports: nausea, vomiting Last BM: unsure Emesis Description: reports: other (black) Bruising or Bleeding Gums?: No Similar Symptoms Previously?: No Review of Systems - Adult - REVIEW OF SYSTEMS - ADULT Constitutional: reports: no symptoms reported. denies: chills, fever Eyes: reports: no symptoms reported Ears, Nose, Mouth & Throat: reports: no symptoms reported Cardiovascular: reports: no symptoms reported. denies: chest pain, edema Respiratory: reports: no symptoms reported Gastrointestinal: reports: hematemesis Genitourinary: reports: no symptoms reported Musculoskeletal: reports: no symptoms reported Integumentary: reports: no symptoms reported Neurological: reports: no symptoms reported. denies: dizziness/vertigo, headache/migraines Psychiatric: reports: no symptoms reported Endocrine: reports: no symptoms reported Hematologic/Lymphatic: reports: no symptoms reported Allergic/Immunologic: reports: no symptoms reported All Other Systems: Reviewed and Negative Past History - Adult - PAST MEDICAL HISTORY-ADULT Review of Records: reports: Old Records Reviewed, Nursing Assessment Review, Medications Reviewed, Social history reviewed & non-contributory. Major Childhood Illnesses: reports: denies history Cardiovascular: reports: HTN Respiratory: reports: asthma, COPD Gastrointestinal: reports: denies history Obstetrical/Gynecological: reports: other (R breast Ca) Genitourinary: reports: denies history Musculoskeletal: reports: denies history Neurological: reports: denies history Endocrine/Immune: reports: denies history Other Conditions: reports: denies history - PRIOR SURGERIES/PROCEDURES Surgical/Procedure History: reports: hysterectomy, hernia repair - IMMUNIZATION STATUS Childhood Immunizations: See Nurse Assessment Flu Vaccine: See Nurse Assessment - FAMILY HISTORY Family History: reviewed, not pertinent - SOCIAL HISTORY Smoking: quit greater than 1 year Substance Use: none/never Alcohol Use Frequency: never Physical Exam-General - PHYSICAL EXAM-ADULT Initial Vital Signs Reviewed: Yes - CONSTITUTIONAL General Appearance: appears well, alert, no apparent distress - EYES Eyes: PERRL/EOMI - HEAD, EARS, NOSE, MOUTH & THROAT HENMT: normocephalic/atraumatic, moist mucous membranes, normal ENT inspection, TMs normal, pharynx normal - NECK Neck: non-tender, full range of motion, supple, normal inspection - RESPIRATORY Respiratory: chest non-tender, lungs clear, normal breath sounds, no pleuratic chest pain - CARDIOVASCULAR Cardiovascular: normal peripheral pulses, regular rate, rhythm, no edema - GASTROINTESTINAL (ABDOMEN) Abdominal Exam: normal bowel sounds, non tender, soft - LYMPHATIC Lymphatic: no adenopathy - MUSCULOSKELETAL Back Exam: normal inspection, no CVA tenderness Extremity: normal range of motion, non-tender, normal gait, normal inspection - SKIN Integumentary: normal color, normal turgor, warm/dry - NEUROLOGIC Neurologic: grossly normal - PSYCHIATRIC Psych/Mental Status: normal mood/affect, normal thought content, normal thought process, oriented x 3 Progress - PLAN OF CARE/RESULTS Progress/Plan/Lab Results: Vital Signs - 8 hr 03/21/18 20:44 Temperature 98.9 F Pulse Rate 92 H Respiratory Rate 18 O2 Sat by Pulse Oximetry 96 Laboratory Results - last 24 hr 03/21/18 20:50 PT 16.0 INR 1.19 PTT (Actin FS) 28.1 Orders Category Date Time Status CBC WITH ELECTRONIC DIFF [HEME] Stat Lab 03/21/18 20:50 Results COMPREHENSIVE METABOLIC PANEL [CHEM] Stat Lab 03/21/18 20:50 Received MAGNESIUM [CHEM] Stat Lab 03/21/18 20:50 Received OCCULT BLOOD NON-FECES Stat Lab 03/21/18 20:49 Uncollected PT [PROTIME WITH INR] [COAG] Stat Lab 03/21/18 20:50 Completed PTT [COAG] Stat Lab 03/21/18 20:50 Completed pro-bnp [PRO B-NATRIURETIC PEPTIDE] Stat Lab 03/21/18 21:02 Uncollected Ondansetron [Zofran] Med 03/21/18 20:59 Discontinued 4 mg IV NOW ONE Pantoprazole [Protonix] Med 03/21/18 20:58 Discontinued 80 mg IV NOW ONE Sodium Chloride 0.9% Med 03/21/18 20:58 Discontinued 10 ml INJ NOW ONE Result Diagrams: 03/21/18 20:50 03/21/18 20:50 - REASSESSMENT Reassessment #1 Time Reassessed: 01:57 Status: other (SPOKE TO SURGEON WHO WOULD LIKE PATIENT BE ADMITTED AND WILL ATTEMPT TO REDUCE IT; WAS INFORMED TO HAVE HOSPITALIST ADMIT. I SPOKE TO HOSPITALIST; APPRECIATE THEIR ASSISTANCE.) - CT/MRI 1 CT Study: Abdomen (IMPRESSION: SMALL BOWEL OBSTRUCTION DUE TO ANTERIOR ABDOMINAL WALL HERNIA. THE SMALL BOWEL WITHIN THE HERNIA SAC IS DILATED AND THERE IS A SMALL AMOUNT OF FLUID IN THE HERNIA SAC RAISING THE CONCERN FOR INCARCERATION. NO WALL THICKENING SEEN IN THE HERNIATED LOOPS OF SMALL BOWEL TO STUGGEST ISCHEMIA AT THIS TIME. JEANNA JENSEN MD) Departure - Departure Date of Disposition Decision: 03/22/18 Time of Disposition Decision: 01:57 DIAGNOSIS: Small bowel obstruction, Incarceration Disposition: ADMITTED INPATIENT 09 Certified Medical Emergency: Emergent Condition: Critical Referrals and Follow-Ups: Mary Anne Guillory CRNP [Primary Care Provider] - - Critical Care Note This patient required my direct & personal management of CC.: No Attestation - Physician/ DIPTI Attestation Patient care was provided by Advanced Practice Provider:: No The physician spent face to face time with patient:: Yes Advanced Practice Provider documentation review:: Supervising physician onsite and consulted in the evaluation and care of this patient. The physician did have a face to face encounter with the patient. This chart was documented by the indicated scribe, (Leticia Torre, Scribe) and accurately reflects the services I performed and decisions made by me, Jennie Florentino MD, as attested by the provider's signature.
[2018-03-22 02:14] LABS: BILIRUBIN URINE NEGATIVE (NEGATIVE); BLOOD URINE NEGATIVE (NEGATIVE); COLOR YELLOW; GLUCOSE URINE NEGATIVE (NEGATIVE); KETONE URINE NEGATIVE (NEGATIVE); LEUKOCYTES URINE NEGATIVE (NEGATIVE); NITRITE URINE NEGATIVE (NEGATIVE); PH URINE 6.5; PROTEIN URINE 30 mg/dL (NEGATIVE); SP GRAVITY URINE > 1.050; TURBIDITY URINE CLEAR (CLEAR); UROBILINOGEN URINE NORMAL (NORMAL)
[2018-03-22 02:18] LABS: UR EPITHELIAL CELLS <10 /HPF (<10); URINE BACTERIA NEGATIVE /HPF; URINE RBC <10 /HPF (<10); URINE WBC <10 /HPF (<10)
[2018-03-22] MEDS ORDERED: ZOFRAN IV PRN (04:04)
[2018-03-22] MEDS: NS 1,000 ML IV SCH (04:18)
--- NOTE | 2018-03-22 08:00 | Diag Imaging Result Doc PS360 ---
EXAM: CT ABD/PELVIS W/IV CONT ONLY 03/21/2018 HISTORY: ELEVATED WBC (22K) PRESENTS W/ N/V; VAGUE ABDOMEN TECHNIQUE: This exam was performed using automated exposure control, adjustment of mA or kV according to patient size, and/or use of iterative reconstruction technique. COMMENT: There are no previous studies available for comparison. There are increased interstitial markings adjacent to the pleural surfaces in the lung bases which may be due to fibrosis. There is an endograft in the distal descending aorta extending into the abdomen slightly just above the takeoff of the celiac artery. The descending aorta is distended measuring almost 5 cm in diameter. There are atherosclerotic calcifications in the abdominal aorta as well as in the proximal portions of the superior mesenteric artery and the renal arteries bilaterally. Just below the level of the renal arteries there is dilatation of the abdominal aorta with a maximum AP diameter of 3.7 cm. There is a small outpouching of the abdominal aorta more distally at the level of the takeoff of the inferior mesenteric artery slightly to the left the midline extending approximately a centimeter for the normal contour of the anterior aorta. There is some lobulation of both kidneys. There is a fairly large cyst arising from the upper pole of the left kidney measuring 4.2 cm in diameter. The adrenal glands are not enlarged. There are no gallstones. The spleen is not enlarged and contains some calcified granulomata. There is a small lucency in the mid spleen of uncertain significance. There is some stool throughout the colon. There is a ventral hernia best seen around image 71 of the portal venous series containing a loop of mid small bowel. There is some dilatation of the proximal segment with fecalized contents and the exiting portion of the loop is decompressed. Pelvis: There is stool within the distal colon and rectum. There is a small amount of free fluid. There has been hysterectomy. There is no evidence of acute bony abnormality. IMPRESSION: 1. Ventral hernia with partially obstructed small bowel. 2. 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 Atherosclerotic changes as described. Electronically signed by Dylan North 03/22/2018 7:57 AM
[2018-03-22] MEDS: DUONEB (A & A) INH SCH ×5 (08:26→23:35)
--- NOTE | 2018-03-22 08:49 | HISTORY AND PHYSICAL ---
PRIMARY CARE PROVIDER: ZAINAB Rianey. CHIEF COMPLAINT: Nausea, vomiting and abdominal pain x2 days. HISTORY OF PRESENTING ILLNESS: A 77-year-old female, with a history of COPD, emphysema, hypertension and breast cancer, who had presented to the emergency department with a 2-day history of worsening abdominal pain. She states that she was also having nausea and vomiting, and the emesis seemed to be somewhat dark. The patient apparently is on anticoagulation with Eliquis. The patient was evaluated in the emergency department. She had a CAT scan done which did show possible incarcerated small-bowel obstruction. Her case was discussed with General Surgery who recommended the patient be admitted for further management. At the time of my examination, the patient denied any headache, fever, chills, chest pain, shortness of breath or any weight changes but complained of nausea, vomiting, and abdominal pain. PAST MEDICAL HISTORY: The past medical history includes COPD, emphysema, hypertension, and breast cancer. PAST SURGICAL HISTORY: Hysterectomy, hernia repair, left mastectomy, possible aortic aneurysm repair. ALLERGIES: Lortab. CURRENT MEDICATIONS: The medications include Coreg 6.25 mg p.o. b.i.d., prednisone 20 mg p.o. daily, Eliquis 5 mg p.o. b.i.d., diltiazem CD 120 mg p.o. daily, Lipitor 40 mg p.o. daily, Celexa 40 mg p.o. daily, trazodone 50 mg p.o. at bedtime, hydroxyzine 50 mg p.o. daily, and Ventolin inhaler p.r.n. SOCIAL HISTORY: She is a former smoker. No history of alcohol or illicit drug use. FAMILY HISTORY: Positive for coronary disease in mother. REVIEW OF SYSTEMS: Fourteen point review of systems is as in HPI. Other systems negative. PHYSICAL EXAMINATION: GENERAL: Cooperative, friendly female. She is resting more comfortably now. VITAL SIGNS: Temperature 98.9 degrees, pulse 92, respiration 18. Blood pressure 215/87. HEENT: Atraumatic, normocephalic. Extraocular movements intact. PERRLA. NECK: No masses. CHEST: Scattered wheezes. CARDIOVASCULAR: Regular rate and rhythm. ABDOMEN: Soft. Diffuse tenderness. EXTREMITIES: No edema. NEUROLOGIC: She is awake, alert, and oriented x3. : No bladder distention. SKIN: Warm. LABORATORIES AND STUDIES: WBC 22.06, hemoglobin 11.4, hematocrit 37.1, platelets are 161,000. Sodium 148, potassium 4.4, chloride 104, CO2 is 35, BUN is 37, creatinine 0.9, glucose is 141. IMPRESSION: This is a 77-year-old female, with a history of COPD, emphysema, hypertension, and breast cancer, who apparently presented to the emergency department with a 2-day history of worsening nausea, vomiting and abdominal pain. She was evaluated in the emergency department, initially stated that she had dark emesis. She had a CAT scan done also which did show incarcerated small bowel obstruction. Due to her presenting symptoms, she will need admission for further management. ASSESSMENT: 1. Abdominal pain. 2. Suspected incarcerated small-bowel obstruction. 3. Possible upper gastrointestinal bleed, with patient being on Eliquis for anticoagulation. 4. Chronic obstructive pulmonary disease. 5. Hypertension. PLAN: 1. We will admit the patient to the medical floor with telemetry. 2. We will keep the patient NPO. 3. General Surgery was consulted in the ED already. 4. We will hold the patient's anticoagulation. 5. Continue with DuoNeb p.r.n. 6. We will monitor blood pressure closely, resume antihypertensive agents. 7. The patient is on DVT prophylaxis with SCDs. 8. We will continue to follow and reassess and make further recommendation based on patient's clinical course. cc: Shukri Krueger MD
--- NOTE | 2018-03-22 08:50 | GENERAL SURGERY CONSULTATION ---
DATE: 03/22/2018 HISTORY OF PRESENT ILLNESS: This is a 77-year-old female with a complicated medical history. She presents with epigastric discomfort and nausea. She has had a couple episodes of emesis. CT scan was obtained that showed a ventral hernia containing small bowel and apparent associated bowel obstruction. She has had pain in this site for over the last week. She was recently admitted end of February for what sounds like an atrial fibrillation and COPD exacerbation. She has had worsening productive cough over the last week as well. In the emergency department, she was found to be hemodynamically stable. She was uncomfortable, but after presentation her pain resolved, and she had no further emesis. PAST MEDICAL HISTORY: 1. Atrial fibrillation. 2. History of a thoracic aortic aneurysm, status post percutaneous repair. 3. History of ventral hernia repairs in the past apparently related to a . She has had a laparotomy incision previously. 4. COPD. 5. Hyperlipidemia. 6. Hypertension. SURGICAL HISTORY: As included above. SOCIAL HISTORY: A 1/2 pack a day smoker, but she apparently quit 10 years ago. FAMILY HISTORY: Family history Is reviewed: Hypertension, stroke, coronary disease and alcohol abuse. REVIEW OF SYSTEMS: Ten point negative. PHYSICAL EXAMINATION: Vital Signs: On exam, pulses have been in the 80s, blood pressure 165/86, but as high as 215. She has been afebrile. Oxygen saturations high 90s on 3.5 L nasal cannula. General: Generally, this is a chronically ill female. HEENT: No scleral icterus. Neck: No cervical mass. Cardiovascular: Normal rate. Pulmonary: No increased work of breathing, but does have coarse rhonchi and audible wheezes and a productive cough. Abdomen: Soft. There is a supraumbilical midline incisional hernia with palpable small bowel within this. It is reducible with some effort, but soft with no overlying skin changes. She is otherwise nondistended with no peritonitis. Integument: Warm and dry. Extremities: There is lower extremity edema noted, but otherwise well perfused. Psychiatric: Appropriate affect. Neurologic: Generalized weakness, but no gross deficits. LAB DATA: White count was 22 on admission; it was 15 when she left the hospital. Hematocrit is up to 37; it was 34 when she was last here. Creatinine is 0.9. Sodium is high at 148. Glucose is 141. Urinalysis is clear. Lactate 0.6. IMAGING STUDIES: CT scan of the abdomen and pelvis with p.o. and IV contrast shows a supraumbilical incision with apparent associated small bowel obstruction. No obvious strangulation or ischemia noted. No perforation. ASSESSMENT AND PLAN: A 77-year-old female with an incisional hernia. I was able to reduce this with some effort, but we were able to reduce it, a relatively small defect. I suspect this is more of a [place] type defect. She has got multiple medical issues. I think it is important to factor this in. In regards to her hernia, I placed an abdominal binder and will observe her and make a determination whether she needs more urgent procedure over the next several hours. Dr. Rehman repaired her hernia back in 2013; I see that now. He did repair her hernia with mesh. She also had an echocardiogram back in February that showed normal ejection fraction. We will continue to monitor closely. She has been admitted to the hospital. cc: Gloria Wilson MD
[2018-03-22] MEDS ORDERED: DUONEB (A & A) INH PRN (11:08)
[2018-03-22] MEDS: PROTONIX IV SCH ×2 (11:25→23:05)
--- NOTE | 2018-03-22 12:52 | PROGRESS NOTE ---
DATE: 03/22/2018 She was admitted this morning. She is followed by ZAINAB Rainey. A 77-year-old with history of COPD, emphysema, hypertension, and breast cancer, who presented to the emergency room with a 2-day history of worsening abdominal pain. She has been having some nausea, vomiting, and emesis that is somewhat dark. The patient apparently is on anticoagulation with Eliquis. Evaluated in the emergency room. CT scan was done and showed possible incarcerated small-bowel obstruction. The case was discussed with General Surgery and she was admitted. Dr. Wilson came in and he was able to, with some work, do some reduction of the hernia, and relatively small defect. Suspect this is more of a [id number] type defect, but she has multiple medical issues and really would like to avoid surgery. Watching her placed on an abdominal binder and continue to treat conservatively. Morbid obesity. Possible gastrointestinal bleed. The patient has been on Eliquis for anticoagulation. COPD, no breathing issues at this point. She probably has obstructive apnea as well. Hypertension. On review of her medications she is on normal saline at 80 mL an hour, Protonix 40 mg q.12. She is getting breathing treatments. As far as home medications go, obviously we will continue to hold the Eliquis for now. I will probably put her back on her Lipitor and her Coreg and her Celexa and Cardizem CD. She has a history apparently of atrial fibrillation, and we will give her the Apresoline t.i.d., lisinopril 10 mg at bedtime, multivitamin 1 a day, and she gets prednisone p.o. daily. Actually, I think she is on 20 mg daily, and trazodone 50 mg. cc: Dinesh Juarez MD
[2018-03-22] MEDS: APRESOLINE PO SCH ×2 (13:50→17:08)
[2018-03-22] MEDS: PRINIVIL PO SCH (23:04)
[2018-03-22] MEDS: LIPITOR PO SCH (23:05)
[2018-03-22] MEDS: DESYREL PO SCH (23:05)
[2018-03-22] MEDS: COREG PO SCH (23:05)
[2018-03-23] MEDS: NS 1,000 ML IV SCH (01:53)
--- NOTE | 2018-03-23 02:00 | GENERAL SURGERY PROGRESS NOTE ---
DATE: 03/22/2018 SUBJECTIVE: She feels much better. No further vomiting. No pain. She is having bowel function. No fevers. No tachycardia. PHYSICAL EXAMINATION: Vital signs: Blood pressure is up to 190 this morning but is better this afternoon at 136. General: She is alert. Cardiovascular: Normal rate. Pulmonary: No increased work of breathing. Abdomen: Soft. There remains a reducible midline hernia with no overlying skin changes, and her abdomen is soft without peritonitis. LABORATORY DATA: No new labs yet today. ASSESSMENT AND PLAN: A 77-year-old female with an incarcerated hernia that was reduced. She had a bowel obstruction associated with this. It seems to have resolved. We will keep her NPO today and plan to will give her clear liquids tomorrow. cc: Gloria Wilson MD
[2018-03-23] MEDS: DUONEB (A & A) INH SCH ×6 (03:19→23:24)
[2018-03-23 06:39] LABS: BASO# 0.01 X1000 (0.0-0.2); BASO% 0.1 % (0.0-0.8); EOS# 0.14 X1000 (0.0-0.7); EOS% 1.4 % (0.0-10.0); HEMATOCRIT 32.7 % (37.0-47.0); HEMOGLOBIN 9.9 g/dL (12.0-16.0); LYMPH# 1.26 X1000 (1.2-3.4); LYMPH% 12.5 % (20.5-51.1); MCH 27.8 PG (27-31); MCHC 30.3 g/dL (33-37); MCV 91.9 FL (81-99); MONO# 0.71 X1000 (0.11-0.59); MONO% 7.1 % (1.7-9.3); MPV 12.4 FL (7.4-10.4); NEUT# 7.94 X1000 (1.4-6.5); NEUT% 78.9 % (42.2-75.2); PLT 136 X1000 (130-400); RBC 3.56 XMIL (4.2-5.4); RDW 14.8 % (11.5-14.5); WBC 10.06 X1000 (4.8-10.8)
[2018-03-23 06:50] LABS: AGAP 7; BUN 23 mg/dL (8-22); CALCIUM 8.6 mg/dL (8.8-10.2); CHLORIDE 106 mmol/L (98-107); COSMO 294; CREATININE 0.7 mg/dL (0.5-0.9); ESTIMATED GFR > 60; GLUCOSE 94 mg/dL (70-104); POTASSIUM 3.9 mmol/L (3.5-5.1); SODIUM 146 mmol/L (136-145); TCO2 33 mmol/L (25-35)
[2018-03-23 07:06] LABS: FREE T4 1.22 ng/dL (0.93-1.70); TSH 4.35 uIUmL (0.27-4.20)
[2018-03-23] MEDS ORDERED: [UNRECOGNIZED DRUG - OTHER] PO SCH (09:00)
--- NOTE | 2018-03-23 10:05 | PROGRESS NOTE ---
DATE: 03/23/2018 SUBJECTIVE: Ms. Jenkins is feeling much more comfortable. No abdominal pain. No discomfort. She is awake and alert. OBJECTIVE: Vital signs: Temp 99.2 degrees, pulse 74, respirations 20, blood pressure 176/56. HEENT: Pupils are equal and round. Lungs: Clear in all lung quesada. Cardiovascular: Regular rhythm and rate without murmur. S3. ASSESSMENT AND PLAN: 1. This is a 77-year-old with a hernia. Concerned it was incarcerated. Dr. Wilson has been able to reduce it. She looks much better clinically. 2. Possible upper gastrointestinal bleed. She was on Eliquis, which we are holding. 3. History of chronic obstructive pulmonary disease. No trouble with her breathing at this point. 4. Hypertension. Blood pressure has bounced around a little bit. Overall she is doing much better. We are holding her NPO. I think we will let her try some liquids today. 5. Reviewed her orders. Note also a history of, I believe, atrial fibrillation. Rate is controlled. So I will put her on a clear diet today and see how we do. cc: Dinesh Juarez MD
[2018-03-23] MEDS: PREDNISONE PO SCH (10:54)
[2018-03-23] MEDS: CELEXA PO SCH (10:54)
[2018-03-23] MEDS: APRESOLINE PO SCH ×3 (10:54→17:56)
[2018-03-23] MEDS: COLACE PO SCH (10:54)
[2018-03-23] MEDS: THERA M PLUS PO SCH (10:54)
[2018-03-23] MEDS: CARDIZEM CD PO SCH (10:54)
[2018-03-23] MEDS: PROTONIX IV SCH ×2 (10:54→21:39)
[2018-03-23] MEDS: COREG PO SCH ×2 (10:55→21:38)
[2018-03-23] MEDS: GLUCOSAMINE 500 MG/CHONDROITIN 400 MG PO SCH (10:55)
[2018-03-23] MEDS: SODIUM CHLORIDE 0.9% INJ SCH ×2 (11:04→21:39)
[2018-03-23] MEDS: ATARAX PO SCH (11:04)
--- NOTE | 2018-03-23 15:13 | GENERAL SURGERY PROGRESS NOTE ---
DATE: 03/23/2018 SUBJECTIVE: She feels much better. Bowels are functioning. No vomiting, no pain in her hernia really no bulge, no fevers. Pulse 73, blood pressure 156/55, oxygen saturation 100% on 3 L. General: She is alert. Abdomen: Is obese. There is no palpable hernia, is reduced. No overlying skin changes. Integument: Warm, dry. Cardiovascular: Normal rate, regular rhythm. LAB: White count now 10, hematocrit 32, creatinine 0.7, potassium 3.9. ASSESSMENT AND PLAN: This is a 77-year-old female who presented with a incarcerated hernia that was easily reducible. Her exam benign. She is feeling better. Will give her clear liquids today and gradually advance this. She is high risk for an abdominal operation given her multiple medical problems and will be high risk for recurrence given her obesity. Hopefully we can avoid operation, she will need her abdominal binder at all times, we discussed this. Will follow her closely. cc: Gloria Wilson MD
[2018-03-23] MEDS: LIPITOR PO SCH (21:39)
[2018-03-23] MEDS: PRINIVIL PO SCH (21:39)
[2018-03-23] MEDS: DESYREL PO SCH (21:40)
[2018-03-24] MEDS: DUONEB (A & A) INH SCH ×4 (03:23→15:50)
[2018-03-24] MEDS: ATARAX PO SCH (08:56)
[2018-03-24] MEDS: COLACE PO SCH (08:56)
[2018-03-24] MEDS: GLUCOSAMINE 500 MG/CHONDROITIN 400 MG PO SCH (08:56)
[2018-03-24] MEDS: APRESOLINE PO SCH ×4 (08:57→17:10)
[2018-03-24] MEDS: CELEXA PO SCH (08:57)
[2018-03-24] MEDS: THERA M PLUS PO SCH (08:57)
[2018-03-24] MEDS: COREG PO SCH (08:58)
[2018-03-24] MEDS: PREDNISONE PO SCH (08:58)
[2018-03-24] MEDS: CARDIZEM CD PO SCH (08:59)
[2018-03-24] MEDS: SODIUM CHLORIDE 0.9% INJ SCH (09:02)
[2018-03-24] MEDS: PROTONIX IV SCH (09:02)
--- NOTE | 2018-03-24 10:55 | PROGRESS NOTE ---
DATE: 03/24/2018 SUBJECTIVE: Ms. Jenkins states she is feeling much better, so I am going to advance her diet. She feels like she wants to go home. I will make sure she can eat. So I will advance her to soft diet and see how we do. OBJECTIVE: Vital signs: Today afebrile, temp 98 degrees, pulse 74, respirations 15. Blood pressure 157/51. Pupils: Are equal and round. Lungs: Clear in all lung quesada. Cardiovascular: Regular rhythm and rate without murmur or S3. Abdomen: Soft. Skin: Warm and dry. Urine output is 2390. ASSESSMENT AND PLAN: Ventral hernia seems to be doing much better. Dr. Wilson was able to reduce it, and she has an abdominal binder. Will try her on soft diet. If she does okay, maybe she can go home. We will discuss with Dr. Wilson. Maybe she can go home this evening. cc: Dinesh Juarez MD
--- NOTE | 2018-03-24 14:16 | GENERAL SURGERY PROGRESS NOTE ---
DATE: 03/24/2018 SUBJECTIVE: She is resting this morning but no events overnight. Her diet was advanced. No fevers. No tachycardia. Blood pressure 151/44, oxygen saturation 97% on 2 L. General: She is alert. Cardiovascular: Normal rate. Abdomen: Is soft. There is abdominal binder in place but no tenderness. LAB: White count 10 yesterday. ASSESSMENT AND PLAN: A 77-year-old female with bowel obstruction related to a ventral hernia. She has multiple medical issues is complicated hernia repair given her comorbid condition. Will observe for now. I have encouraged to wear abdominal binder at all times and see her back as an outpatient followup from a surgical perspective we can discharge patient. cc: Gloria Wilson MD
[2018-03-24 17:11] VITALS: BP 113/42
--- NOTE | 2018-03-24 18:08 | DISCHARGE SUMMARY ---
ADMISSION DATE: 03/22/2018 DISCHARGE DATE: 03/24/2018 She is followed by ZAINAB Rainey. She presented with nausea, vomiting, and abdominal pain for 2 days. A 77-year-old with history of COPD, emphysema, hypertension, and breast cancer who presented to the emergency room with a 2-day history of worsening abdominal pain, states that she also had worsening nausea and vomiting, and emesis seemed to be somewhat dark. She was on anticoagulation with Eliquis. The patient was evaluated in the emergency room. CT scan done, which showed possible incarcerated small bowel obstruction. I discussed with General Surgery. Dr. Bo Wilson came down and he was able to decompress the hernia with some effort. He put an abdominal binder on her. He was able to reduce with some effort, as I said, and it was a relatively small defect, and it suggests more of a [place] type defect, in his words, because of her multiple medical issues, extreme obesity, and the fact that I think she has had abdominal surgery for ventral hernia repair that was related to a . She has underlying COPD and hyperlipidemia. At any rate, the pain resolved, the nausea resolved. We give her clear liquids and she was able to tolerate a soft diet so she wanted to go home. Encouraged to wear the binder. Will continue conservative therapy. DISCHARGE MEDICATIONS: She is on DuoNeb at home, albuterol 2 puffs q.a.m., Eliquis 5 mg b.i.d., which we will put her back on, Lipitor 40 mg at bedtime, Coreg 6.25 mg b.i.d., Celexa 40 mg a day, Cardizem CD 120 mg a day, docusate sodium 100 mg daily, glucosamine chondroitin multivitamin 1 a day, Apresoline 25 mg t.i.d., Pamoate 50 mg a day, Prinivil 10 mg at bedtime. She had been taking some Levaquin and she can finish out the Levaquin dose she on. Singulair 10 mg daily, multivitamin 1 a day, prednisone 5 mg a day, and Deltasone, which is prednisone, 20 mg a day. I think she will finish out that 5-day course. Trazodone 50 mg at bedtime. FOLLOWUP: She will follow up with primary care and Dr. Wilson will see her as an outpatient. cc: Dinesh Juarez MD
== END 2018-03-24 18:45 | disposition home or self-care (01) | DRG 395 ==
LOC: ED 20:26 → 4N 03-22 06:28 → SUATTDRO 03-22 06:28
PROVIDERS: ATTEND Emergency Medicine
CPT/HCPCS: 51701; 74177; 80048; 80053; 81001; 82270; 82607; 82746; 83605; 83735; 83880; 84439; 84443; 85025; 85610; 85730; 94640; 94761; 96361; 96374; 99285; A9270; C9113; J2405; J7030; J7040; J7506; J7512; P9612; Q9967; S0164

== ENCOUNTER 2019-01-25 18:59 | Inpatient (IN) ==
--- NOTE | 2019-01-25 19:26 | Diag Imaging Result Doc PS360 ---
EXAM: CHEST-1 VIEW - 01/25/2019 HISTORY: sob TECHNIQUE: Portable chest one view COMPARISON: 01/20/2019 FINDINGS: Heart size is normal. There is an aortic endograft similar to prior. Lungs appear clear. There is no pleural effusion or pneumothorax identified. There are mildly prominent anterior costicartilage calcifications noted. IMPRESSION: No evidence of acute disease. Electronically signed by Richardson Ibarra 01/25/2019 7:23 PM
[2019-01-25 19:45] LABS: ALLEN TEST YES; BE 5.8 mmoll (-3.0-3.0); BLOOD TYPE ARTERIAL; HCO3-(ACT) 29.4 mmoll (20.0-26.0); METHB 0.9 % (0.0-1.5); O2(CT) 16.1 mL/dL (15.0-23.0); O2HB 96.7 % (95.0-99.0); PCO2(98.6) 40 mmHg (35-45); PO2(98.6) 125 mmHg (60-100); SAMPLE BLOOD; SAO2 99.4 % (95.0-100.0); THB 11.7 g/dL (11.5-17.4); pH(98.6) 7.48 (7.35-7.45)
[2019-01-25 19:46] LABS: MODALITY BI PAP
--- NOTE | 2019-01-25 20:08 | EKG Report ---
Test Performed on : 01/25/2019 7:56:57 PM Test Reason : SEPSIS Blood Pressure : / mmHG Vent. Rate : 134 BPM Atrial Rate : 134 BPM P-R Int : 176 ms QRS Dur : 142 ms QT Int : 310 ms P-R-T Axes : 000 006 157 degrees QTc Int : 462 ms Sinus tachycardia. Left bundle branch block Abnormal ECG When compared with ECG of 12-MAR-2018 08:05, Sinus rhythm. has replaced Atrial fibrillation. Left bundle branch block is now present Unconfirmed Result
--- NOTE | 2019-01-25 20:09 | EKG Report ---
Test Performed on : 01/25/2019 7:59:09 PM Test Reason : SEPSIS Blood Pressure : / mmHG Vent. Rate : 134 BPM Atrial Rate : 102 BPM P-R Int : 000 ms QRS Dur : 142 ms QT Int : 362 ms P-R-T Axes : 000 006 148 degrees QTc Int : 540 ms Wide QRS tachycardia. Left bundle branch block Abnormal ECG When compared with ECG of 25-JAN-2019 19:56, (Unconfirmed) Wide QRS tachycardia. has replaced Sinus rhythm. Unconfirmed Result
[2019-01-25 20:45] LABS: INR 1.26; PTT 40.5 Seconds (22.3-41.8)
[2019-01-25 20:47] LABS: BASO# 0.01 X1000 (0.0-0.2); HEMATOCRIT 34.8 % (37.0-47.0); HEMOGLOBIN 11.2 g/dL (12.0-16.0); LYMPH# 1.16 X1000 (1.2-3.4); LYMPH% 5.7 % (20.5-51.1); MCH 28.6 PG (27-31); MCHC 32.2 g/dL (33-37); MCV 88.8 FL (81-99); MONO# 0.93 X1000 (0.11-0.59); MONO% 4.6 % (1.7-9.3); MPV 11.3 FL (7.4-10.4); NEUT# 18.28 X1000 (1.4-6.5); NEUT% 89.7 % (42.2-75.2); PLT 159 X1000 (130-400); RBC 3.92 XMIL (4.2-5.4); RDW 14.8 % (11.5-14.5); WBC 20.38 X1000 (4.8-10.8)
[2019-01-25 20:58] LABS: ALB/GLOB RATIO 1.6; ALBUMIN 4.2 g/dL (3.5-5.0); CALCIUM 9.4 mg/dL (8.8-10.2); CREATININE 1.1 mg/dL (0.5-0.9); POTASSIUM 3.9 mmol/L (3.5-5.1); TOTAL BILIRUBIN 0.84 mg/dL (0.20-1.00); TOTAL PROTEIN 6.9 g/dL (6.3-8.3)
[2019-01-25] MEDS ORDERED: NS 1,000 ML IV ONE (20:58)
[2019-01-25] MEDS ORDERED: NITROGLYCERIN TOP ONE (21:26)
[2019-01-25] MEDS ORDERED: LASIX IV ONE (21:34)
[2019-01-25] MEDS ORDERED: DUONEB (A & A) INH ONE (21:36)
--- NOTE | 2019-01-25 21:37 | EKG Report ---
Test Performed on : 01/25/2019 9:23:36 PM Test Reason : rhythm change Blood Pressure : / mmHG Vent. Rate : 091 BPM Atrial Rate : 091 BPM P-R Int : 150 ms QRS Dur : 088 ms QT Int : 386 ms P-R-T Axes : 031 001 055 degrees QTc Int : 474 ms Normal sinus rhythm. Normal ECG When compared with ECG of 25-JAN-2019 19:59, (Unconfirmed) Sinus rhythm. has replaced Wide QRS tachycardia. Unconfirmed Result
--- NOTE | 2019-01-25 21:54 | PROVIDER DOCUMENTATION ---
This chart was entered by Rob Saavedra Scribe, acting as scribe for Marcel Montana MD. HPI-Respiratory General - General Chief Complaint: Shortness of Breath Stated Complaint: SOB Time Seen by Provider: 01/25/19 19:08 Source: patient, family, EMS Allergies/Adverse Reactions: Patient Allergies Allergy/AdvReac Type Severity Reaction Status Date / Time hydrocodone bitartrate * Allergy Mild NAUSEA Verified 01/25/19 20:31 [From Lortab] Home Medications: Home Medication List Medication Instructions Recorded Confirmed Last Taken Type Atorvastatin Calcium [Lipitor] 40 mg PO QHS 01/18/14 01/25/19 01/24/19 History Citalopram [Celexa] 40 mg PO DAILY 01/18/14 01/25/19 01/25/19 History Glucosamin,[id number]-[id number] 1 each PO DAILY 01/18/14 01/25/19 01/25/19 History [Glucoten Caplet] Multivitamin with Minerals 1 each PO DAILY 01/18/14 01/25/19 01/25/19 History [Multiple Vitamin] Albuterol 2.5MG/Ipratrop 0.5MG 3 ml INH Q4H PRN PRN #10 neb 12/05/16 01/25/19 03/19/18 Rx [Duoneb (A & A)] Albuterol Sulfate Inhaler 2 puff INH QAM 05/07/17 01/25/19 03/19/18 History [Ventolin Hfa] Trazodone [Desyrel] 50 mg PO QHS 05/07/17 01/25/19 03/19/18 History Docusate Sodium 100 mg PO DAILY 05/10/17 01/25/19 01/25/19 History Hydroxyzine Pamoate 1 - 2 cap PO TID PRN 05/10/17 01/25/19 03/19/18 History LISINOpril [Prinivil] 10 mg PO HS 05/10/17 01/25/19 01/24/19 History Apixaban [Eliquis] 5 mg PO BID #60 tab 03/15/18 01/25/19 01/25/19 Rx Carvedilol [Coreg] 6.25 mg PO BID #120 tab 03/15/18 01/25/1901/24/19 Rx Diltiazem C.d. [Cardizem Cd] 120 mg PO DAILY #90 cap 03/15/18 01/25/19 01/25/19 Rx Prednisone [Deltasone] 20 mg PO DAILY #5 tab 03/15/18 01/25/19 01/25/19 Rx Amlodipine [Norvasc] 1 tab PO DAILY 01/25/19 01/25/19 01/25/19 History Furosemide 10 mg PO DAILY 01/25/19 01/25/19 01/25/19 History - History of Present Illness-Resp Nature of Presenting Problem: 78 yof presents to the ed v/a ems with sob. ems states pt was wheezing unable to say but 2 words w/o given out of breath, after neb treatment wheezing has stopped , verbal responses have increased since in ed. family states onset SOB started yesterday and throughout the night w/ fever, with intense discomfort. family states pt oxygen at home. family states Lt shoulder pain. pt has hx of A- Fib, COPD, HNT, hx of RT breast cancer w/ Rt breast removed. pt on blood thinners for heart issues. Quality of Pain: reports: aching (Lt shoulder) Onset/Duration: reports: 24 hours ago Timing: reports: still present Cough Quality/Degree: reports: productive cough (yellow) Current Respiratory Medication Therapy: Initiated see nurses note Modifying Factors: improves with: nothing Associated Symptoms: reports: cough, fever/chills, shortness of breath, wheezing (ems reported but stopped since in ed), other (Lt shoulder pain). denies: hyperventilating Similar Symptoms Previously?: No Recently seen or treated by another doctor?: No Review of Systems - Adult - REVIEW OF SYSTEMS - ADULT Constitutional: reports: see HPI, fever. denies: chills, night sweats Eyes: reports: no symptoms reported Ears, Nose, Mouth & Throat: reports: no symptoms reported Cardiovascular: reports: no symptoms reported Respiratory: reports: see HPI, cough, shortness of breath, wheezing Gastrointestinal: denies: nausea, vomiting Genitourinary: reports: no symptoms reported Musculoskeletal: reports: see HPI. denies: back pain, neck pain Integumentary: reports: no symptoms reported Neurological: reports: no symptoms reported Psychiatric: reports: no symptoms reported Endocrine: reports: no symptoms reported Hematologic/Lymphatic: reports: no symptoms reported Allergic/Immunologic: reports: no symptoms reported All Other Systems: Reviewed and Negative Past History - Adult - PAST MEDICAL HISTORY-ADULT Review of Records: reports: Old Records Reviewed, Nursing Assessment Review, Medications Reviewed, Social history reviewed & non-contributory. Major Childhood Illnesses: reports: denies history Cardiovascular: reports: HTN Respiratory: reports: asthma, COPD Gastrointestinal: reports: denies history Obstetrical/Gynecological: reports: other (R breast Ca) Genitourinary: reports: denies history Musculoskeletal: reports: denies history Neurological: reports: denies history Psychiatric: reports: denies history Endocrine/Immune: reports: denies history Other Conditions: reports: denies history - PRIOR SURGERIES/PROCEDURES Surgical/Procedure History: reports: hysterectomy, hernia repair - IMMUNIZATION STATUS Childhood Immunizations: See Nurse Assessment Flu Vaccine: See Nurse Assessment - FAMILY HISTORY Family History: reviewed, not pertinent - SOCIAL HISTORY Smoking: quit greater than 1 year, cigarettes Substance Use: denies Living Situation: family Physical Exam-General - PHYSICAL EXAM-ADULT Initial Vital Signs Reviewed: Yes - CONSTITUTIONAL General Appearance: appears well, alert, mild distress - RESPIRATORY Respiratory: normal breath sounds - CARDIOVASCULAR Cardiovascular: regular rate, rhythm, tachycardia (101) - CHEST (BREASTS) Chest/Breast: deferred - GENITOURINARY Female Genitalia/Pelvic Exam: deferred Rectal Exam: deferred Hemoccult Exam: deferred - NEUROLOGIC Neurologic: grossly normal, no motor/sensory deficits - PSYCHIATRIC Psych/Mental Status: normal mood/affect, normal thought content, normal thought process, oriented x 3 - HEART Score HEART Score: History: Moderately Suspicious HEART Score: ECG: Non-Specific Repolarization Disturbance/LBBB/PM HEART Score: Age: > or = 65 Years HEART Score: Risk Factors for Atherosclerotic Disease: > or = 3 Risk Factors or History of Atherosclerotic Disease HEART Score: Troponin: < or = Normal Limit Total HEART Score:: 6 Progress - PLAN OF CARE/RESULTS Progress/Plan/Lab Results: Vital Signs - 8 hr 01/25/19 19:06 01/25/19 19:08 01/25/19 19:13 Temperature 98.2 F Pulse Rate 101 H Respiratory Rate 24 Blood Pressure 166/97 166/97 O2 Sat by Pulse Oximetry 98 99 98 01/25/19 19:15 01/25/19 19:16 01/25/19 19:31 Temperature Pulse Rate 99 H 95 H 93 H Respiratory Rate 25 H 21 26 H Blood Pressure 151/82 137/68 O2 Sat by Pulse Oximetry 97 97 97 01/25/19 19:32 01/25/19 19:46 01/25/19 20:01 Temperature Pulse Rate 135 H 135 H Respiratory Rate 32 H 24 Blood Pressure 129/82 144/90 O2 Sat by Pulse Oximetry 98 97 97 01/25/19 20:15 01/25/19 20:16 01/25/19 20:30 Temperature Pulse Rate 135 H 136 H 136 H Respiratory Rate 27 H 22 22 Blood Pressure 132/93 O2 Sat by Pulse Oximetry 96 95 94 L 01/25/19 20:31 01/25/19 20:45 01/25/19 20:46 Temperature Pulse Rate 135 H 137 H 137 H Respiratory Rate 27 H 20 28 H Blood Pressure 165/95 155/88 O2 Sat by Pulse Oximetry 94 L 94 L 94 L 01/25/19 21:00 01/25/19 21:01 01/25/19 21:46 Temperature Pulse Rate 135 H 136 H 90 Respiratory Rate 23 19 17 Blood Pressure 175/92 O2 Sat by Pulse Oximetry 95 95 Laboratory Results - last 24 hr 01/25/19 01/25/19 01/25/19 19:35 20:15 20:15 WBC 20.38 H RBC 3.92 L Hgb 11.2 L Hct 34.8 L MCV 88.8 MCH 28.6 MCHC 32.2 L RDW Std Deviation 14.8 H Plt Count 159 MPV 11.3 H Neut % (Auto) 89.7 H Lymph % (Auto) 5.7 L [place] % (Auto) 4.6 Eos % (Auto) 0.0 Baso % (Auto) 0.0 Neut # (Auto) 18.28 H Lymph # (Auto) 1.16 L [place] # (Auto) 0.93 H Eos # (Auto) 0.00 Baso # (Auto) 0.01 PT INR PTT (Actin FS) D-Dimer, Quantitative Specimen Type ARTERIAL Sample Site R RADIAL pH 7.48 H pCO2 40 pO2 125 H HCO3 29.4 H Base Excess 5.8 H Oxyhemoglobin 96.7 ABG O2 Sat (Calculated) 16.1 ABG O2 Saturation 99.4 ABG Carboxyhemoglobin 1.80 ABG Methemoglobin 0.9 Dinesh Test YES A-a O2 Difference 110.0 Total Hemoglobin 11.7 Lactate 1.30 Blood Gas Modality BI PAP Vent Mode BIPAP FiO2 % 40.0 Inspiratory BiPAP 12.0 Expiratory BiPAP 6.0 Sodium 140 Potassium 3.9 Chloride 96 L Carbon Dioxide 27 Anion Gap 17 BUN 21 Creatinine 1.1 H Estimated GFR/1.73 m2 48 BUN/Creatinine Ratio 19 Glucose 116 H Calculated Osmolality 283 Calcium 9.4 Total Bilirubin 0.84 AST 12 ALT 7 L Alkaline Phosphatase 62 Troponin T Hey-A-Apljftgjbdg Pept Total Protein 6.9 Albumin 4.2 Globulin 2.7 Albumin/Globulin Ratio 1.6 Plasma Lactate 01/25/19 01/25/19 01/25/19 20:15 20:15 20:15 WBC RBC Hgb Hct MCV MCH MCHC RDW Std Deviation Plt Count MPV Neut % (Auto) Lymph % (Auto) [place] % (Auto) Eos % (Auto) Baso % (Auto) Neut # (Auto) Lymph # (Auto) [place] # (Auto) Eos # (Auto) Baso # (Auto) PT 16.0 INR 1.26 PTT (Actin FS) 40.5 D-Dimer, Quantitative Specimen Type Sample Site pH pCO2 pO2 HCO3 Base Excess Oxyhemoglobin ABG O2 Sat (Calculated) ABG O2 Saturation ABG Carboxyhemoglobin ABG Methemoglobin Dinesh Test A-a O2 Difference Total Hemoglobin Lactate Blood Gas Modality Vent Mode FiO2 % Inspiratory BiPAP Expiratory BiPAP Sodium Potassium Chloride Carbon Dioxide Anion Gap BUN Creatinine Estimated GFR/1.73 m2 BUN/Creatinine Ratio Glucose Calculated Osmolality Calcium Total Bilirubin AST ALT Alkaline Phosphatase Troponin T 0.011 Xce-Z-Ahkkdohbwmo Pept 3501 H Total Protein Albumin Globulin Albumin/Globulin Ratio Plasma Lactate 01/25/19 01/25/19 20:15 20:15 WBC RBC Hgb Hct MCV MCH MCHC RDW Std Deviation Plt Count MPV Neut % (Auto) Lymph % (Auto) [place] % (Auto) Eos % (Auto) Baso % (Auto) Neut # (Auto) Lymph # (Auto) [place] # (Auto) Eos # (Auto) Baso # (Auto) PT INR PTT (Actin FS) D-Dimer, Quantitative 2.01 H Specimen Type Sample Site pH pCO2 pO2 HCO3 Base Excess Oxyhemoglobin ABG O2 Sat (Calculated) ABG O2 Saturation ABG Carboxyhemoglobin ABG Methemoglobin Dinesh Test A-a O2 Difference Total Hemoglobin Lactate Blood Gas Modality Vent Mode FiO2 % Inspiratory BiPAP Expiratory BiPAP Sodium Potassium Chloride Carbon Dioxide Anion Gap BUN Creatinine Estimated GFR/1.73 m2 BUN/Creatinine Ratio Glucose Calculated Osmolality Calcium Total Bilirubin AST ALT Alkaline Phosphatase Troponin T Ril-Y-Azswgzxclcm Pept Total Protein Albumin Globulin Albumin/Globulin Ratio Plasma Lactate 1.2 Orders Category Date Time Status Cardiac Monitoring DIRECTED Care 01/25/19 19:18 Active IV Insertion ORDERED Care 01/25/19 19:18 Completed Notify MD of + Sepsis Screen NOW Care 01/25/19 19:18 Active Notify Physician As Ordered Care 01/25/19 19:18 Active CHEST-1 VIEW [RAD] Stat Exams 01/25/19 19:08 Completed CTA [CT ANGIOGRM PULMONARY ARTERIES] [CT] Stat Exams 01/25/19 21:35 Ordered ABG [RESP] Routine Lab 01/25/19 19:35 Completed BLOOD CULTURE [BLDCUL] Stat Lab 01/25/19 20:22 Received CBC WITH ELECTRONIC DIFF [HEME] Stat Lab 01/25/19 20:15 Completed COMPREHENSIVE METABOLIC PANEL [CHEM] Stat Lab 01/25/19 20:15 Completed D-DIMER [COAG] Stat Lab 01/25/19 20:15 Completed LACTATE, PLASMA [CHEM] Lab 01/25/19 22:30 Uncollected LACTATE, PLASMA [CHEM] Lab 01/26/19 01:30 Uncollected LACTATE, PLASMA [CHEM] Q3H Lab 01/25/19 20:15 Completed PRO B-NATRIURETIC PEPTIDE Stat Lab 01/25/19 20:15 Completed PROTIME WITH INR [COAG] Stat Lab 01/25/19 20:15 Completed PTT [COAG] Stat Lab 01/25/19 20:15 Completed TROPONIN T Stat Lab 01/25/19 20:15 Completed URINALYSIS W/POSS RFLX CULT [URINALYSIS] Stat Lab 01/25/19 19:18 Uncollected 0.9% Sodium Chloride Inj [Ns] 1,000 ml Med 01/25/19 20:58 Active IV 999 mls/hr Albuterol 2.5MG/Ipratrop 0.5MG [Duoneb (A & A)] Med 01/25/19 21:36 Discontinued 3 ml INH NOW ONE Furosemide [Lasix] Med 01/25/19 21:34 Discontinued 40 mg IV NOW ONE Nitroglycerin Med 01/25/19 21:26 Discontinued 0.5 inch TOP NOW ONE Aerosol Treatments Routine Oth 01/25/19 21:36 Completed Aerosol Treatments Stat Oth 01/25/19 21:36 Completed Oxygen Device Stat Oth 01/25/19 19:18 Completed EKG [EKG] Stat Ther 01/25/19 19:08 Draft EKG [EKG] Stat Ther 01/25/19 20:07 Draft EKG [EKG] Stat Ther 01/25/19 21:15 Draft Result Diagrams: 01/25/19 20:15 01/25/19 20:15 - EKG 1 Time of EKG reading by physician:: 19:59 EKG Read and Signed by:: Marcel Montana Rate: 134 Rhythm: wide QRS tachycardia [place]: normal QRS: normal [place] Interval: normal ST Wave: normal Comments: Lt bundle branch block 2 Time of EKG reading by physician:: 21:23 EKG Read and Signed by:: Marcel Montana EKG Interpretation (*Must complete 3 of following elements*): Normal Rate: 91 Rhythm: NSR [place]: normal QRS: normal [place] Interval: normal ST Wave: normal - XRAY 1 XRAY Study: Chest Impression: See EMR Report (XAM: CHEST-1 VIEW - 01/25/2019 HISTORY: sob TECHNIQUE: Portable chest one view COMPARISON: 01/20/2019 FINDINGS: Heart size is normal. There is an aortic endograft similar to prior. Lungs appear clear. There is no pleural effusion or pneumothorax identified. There are mildly prominent anterior costicartilage calcifications noted. IMPRESSION: No evidence of acute disease. Electronically signed by Richardson Ibarra 01/25/2019 7:23 PM 01/25/191922 Interpreting Physician: Richardson Ibarra MD Dictated Date/Time: 01/25/191917 cc: Marcel Montana MD;) - CONSULTS/PCP/HOSPITALIST Notification #1 *Consult/PCP/Hospitalist*: Dr. Montana consult w/ Dr. Bose Time Discussed: 20:28 (wants pt to be transfered to [facility] ) #2 Consult: Dr. Montana consult w/ Dr. Krueger Time Discussed: 21:39 (accepted ) Consult Disposition: Will see in ED, Admit #3 Consult: heart center Time Discussed: 21:40 Reason/Comments: advised EKG had no new findings and pt should stay at general Departure - Departure Date of Disposition Decision: 01/25/19 Time of Disposition Decision: 21:53 DIAGNOSIS: COPD exacerbation, Acute and chronic respiratory failure, Hypertension, CHF (congestive heart failure), Elevated d-dimer Disposition: ADMITTED INPATIENT 09 Certified Medical Emergency: Emergent Condition: Fair Referrals and Follow-Ups: Mary Anne Guillory CRNP [Primary Care Provider] - - Critical Care Note This patient required my direct & personal management of CC.: No Attestation - Physician/ DIPTI Attestation Patient care was provided by Advanced Practice Provider:: No The physician spent face to face time with patient:: Yes Advanced Practice Provider documentation review:: Supervising physician onsite and consulted in the evaluation and care of this patient. The physician did have a face to face encounter with the patient. This chart was documented by the indicated scribe, (Rob Saavedra Scribe) and accurately reflects the services I performed and decisions made by me, Marcel Montana MD, as attested by the provider's signature.
[2019-01-25] MEDS ORDERED: TYLENOL PO PRN (21:57)
[2019-01-25] MEDS ORDERED: ZOFRAN IV PRN (21:57)
[2019-01-25 22:01] LABS: URINE SOURCE CATH
[2019-01-25 22:03] LABS: BILIRUBIN URINE SMALL (NEGATIVE); BLOOD URINE SMALL (NEGATIVE); COLOR YELLOW; GLUCOSE URINE NEGATIVE (NEGATIVE); KETONE URINE 20 mg/dL (NEGATIVE); LEUKOCYTES URINE NEGATIVE (NEGATIVE); NITRITE URINE NEGATIVE (NEGATIVE); PROTEIN URINE 200 mg/dL (NEGATIVE); SP GRAVITY URINE 1.023; TURBIDITY URINE HAZY (CLEAR); UROBILINOGEN URINE 2 mg/dL (NORMAL)
[2019-01-25 22:05] LABS: UR EPITHELIAL CELLS >10 /HPF (<10); URINE BACTERIA NEGATIVE /HPF; URINE RBC <10 /HPF (<10); URINE WBC <10 /HPF (<10)
[2019-01-25 22:58] LABS: URINE CASTS GRANULAR PRESENT; URINE CRYSTALS NONE SEEN; URINE SMALL ROUND CELLS NONE SEEN; URINE YEAST NONE SEEN
[2019-01-26] MEDS: CARDIZEM 100 MG/NS 100 MG/100 ML IVPB IV SCH ×2 (00:24→09:50)
[2019-01-26] MEDS ORDERED: MORPHINE IV ONE ×2 (01:18→03:30)
[2019-01-26] MEDS: DUONEB (A & A) INH PRN ×4 (01:37→18:17)
[2019-01-26] MEDS: ROCEPHIN 1 GM in NS 50 ML IV SCH (01:40)
--- NOTE | 2019-01-26 02:39 | HISTORY AND PHYSICAL ---
CHIEF COMPLAINT: Shortness of breath. HISTORY OF PRESENT ILLNESS: Ms. Jenkins is a 78-year-old female who comes into the emergency room with wheezing. She was having fairly large amounts of respiratory distress on arrival. She was unable to say more than 2 words without being out of breath. After nebulizer treatments, the wheezing had stopped. Her verbal responses had increased. Family stated that onset was yesterday, throughout the night she was having fever and some discomfort. Family states that the patient has home oxygen. She was also having some left shoulder pain. She does have a history of atrial fibrillation, on Eliquis, COPD, hypertension, a history of breast cancer with right mastectomy, emphysema. Her chest x-ray showed chronic COPD changes. A CT angio- was obtained related to an elevated D-dimer. However, the patient has chronically elevated D-dimers. It was grossly normal. The patient did flip into sinus tachycardia and then an SVT or atrial fibrillation. As noted above, she does have a history of atrial fibrillation. She was placed on Cardizem drip. She will be placed on BiPAP and she will be monitored in ICU for further evaluation and treatment. PAST MEDICAL HISTORY: See HPI. PREVIOUS SURGICAL HISTORY: Hysterectomy, left mastectomy, aortic aneurysm repair, abdominal hernia repair times 3. ALLERGIES: [place]. SOCIAL HISTORY: Quit smoking around 15 years ago. No alcohol. No drug abuse. FAMILY HISTORY: Father had aortic aneurysm and is . Mother is due to acute coronary syndrome and myocardial infarction. HOME MEDICATIONS: Lasix 10 mg p.o. daily, hydroxyzine 50 mg 1-2 p.o. t.i.d., albuterol 3 mL q.4 hours, albuterol inhaler 2 puffs q.a.m., amlodipine 5 mg p.o. daily, Eliquis 5 mg p.o. b.i.d., atorvastatin 40 mg p.o. at bedtime, carvedilol 6.25 mg p.o. b.i.d., Celexa 40 mg p.o. daily, diltiazem 120 mg p.o. daily, docusate sodium 100 mg p.o. daily, lisinopril 10 mg p.o. at bedtime, multivitamin 1 daily, prednisone 20 mg p.o. daily, trazodone 50 mg p.o. at bedtime. REVIEW OF SYSTEMS: Fourteen-point review of systems conducted with the patient. She does endorse cough with green sputum as well as shortness of breath, fever, chills, wheezing and left shoulder pain. All other systems were reviewed and found to be negative. PHYSICAL EXAMINATION: VITAL SIGNS: Temperature 98.7, pulse 125-141, SVT or atrial fibrillation with a rapid ventricular rate, respirations 24, blood pressure 166/103, oxygen saturation 96% on BiPAP. GENERAL: A 78-year-old female having acute respiratory distress, currently on BiPAP, is alert and oriented times 3. HEENT: Head is atraumatic, normocephalic. Pupils equal, round, reactive to light. Extraocular eye movement is intact. Sclera is anicteric. Conjunctiva is mildly pale. Oral mucosa is moist. NECK: Supple. No JVD. No thyromegaly. Trachea is midline. No cervical lymphadenopathy. CARDIAC: S1, S2 appreciated. Tachycardic. No murmurs, gallops, rubs. LUNGS: Expiratory wheezing. Decreased bilaterally. No rhonchi or rales. Symmetric rise and fall with respirations. ABDOMEN: Soft, nondistended, nontender. Bowel sounds present all 4 quadrants, normoactive. No pulsatile mass. No organomegaly. EXTREMITIES: No clubbing, cyanosis. One-plus nonpitting edema bilateral lower extremities. Two- plus pedal pulses bilaterally. GENITOURINARY: No bladder distention. Patient voids. Otherwise deferred. NEUROLOGICAL: Alert and oriented times 3. However, difficulty talking related to her respiratory distress. Cranial nerves 2 through 12 appear to be grossly intact. DIAGNOSTIC DATA: EKGs showed sinus tachycardia and then a wide complex SVT or atrial fibrillation with RVR. Chest x-ray shows chronic changes associated with COPD. CT angio- ruled out pulmonary embolism. LABORATORY DATA: WBC 20.38. Hemoglobin 11.2. Hematocrit 34.8. Platelet count 159. ABG: pH 7.48, pCO2 of 40, PO2 of 125, bicarbonate 29.4. This was on 40% BiPAP. Sodium 140. Potassium 3.9. Chloride 96. Carbon dioxide 27. BUN 21. Creatinine 1.1. Glucose 116. ASSESSMENT: 1. Chronic obstructive pulmonary disease with exacerbation. 2. Acute kidney injury. 3. Atrial fibrillation with rapid ventricular rate. 4. Hypertension. PLAN: Admit patient to ICU. Place patient on Cardizem drip. Continue BiPAP until she is able to breathe more effectively. Continue DuoNebs. Continue her home inhalers. We will continue aggressive pulmonary toilet. Continue her Eliquis. We will hold her lisinopril related to acute kidney injury. Continue other antihypertensives. We will hold off on additional steroids. I believe the patient takes daily prednisone. She was given a dose of Lasix in the emergency room. We will hold her home Lasix, give 20 mg IV daily. Consult Cardiology related to atrial fibrillation with a rapid ventricular rate. Further recommendations per patient clinical course. Dictated by ZAINAB Velazquez for Shukri Krueger MD I have performed a face to face diagnostic evaluation. Labs/ Xray- reviewed, Exam- Chest- rhonchi, CV- regular. A/P- COPD Exac, Afib- Admit, Duo nebs, BiPAP, Prednisone, IV cardizem Dr. Krueger cc: ZAINAB Velazquez MD [facility]
[2019-01-26] MEDS ORDERED: MORPHINE ONE (03:26)
--- NOTE | 2019-01-26 07:10 | Diag Imaging Result Doc PS360 ---
EXAM: CT ANGIOGRM PULMONARY ARTERIES 01/25/2019 HISTORY: sob TECHNIQUE: This exam was performed using automated exposure control, adjustment of mA or kV according to patient size, and/or use of iterative reconstruction technique. COMMENT: No previous thoracic studies are available for comparison. 3-D MIPS were performed. There are no filling defects in the pulmonary arteries. There are atherosclerotic calcifications in the aorta and its branches. There is a endograft in the descending thoracic aorta. There is no evidence of dissection. There is dilatation of the distal descending aorta to over 4.7 cm. The ascending aorta is not distended. There are no abnormal fluid collections. There are increased interstitial opacities in the lung bases particularly in the inferior lingula. There is a somewhat irregular nodular opacity in the inferior lateral right middle lobe. Some small nodular opacities are seen posteriorly and laterally in the lingula around image 66. There are emphysematous changes in the upper lung zones. Ill-defined opacity is present in the right apex including some small subcentimeter nodules. Compared to the previous abdominal study of 03/22/2018 the opacity in the inferior lingula, right middle lobe, and in the posterior left lower lobe, and generally increased interstitial markings were not present previously. There is fluid in a somewhat distended esophagus. There is no evidence of significant adenopathy. There is no significant change in the visualized portions of the abdomen. The regional skeleton appears to be intact. IMPRESSION: Patchy pneumonia plus minus pulmonary edema. This was not present on 03/22/2018. Follow-up is recommended following treatment. Retained fluid in the esophagus. The possibility of aspiration pneumonia cannot be excluded. Electronically signed by Dylan North 01/26/2019 7:08 AM
[2019-01-26 07:11] LABS: BASO# 0.01 X1000 (0.0-0.2); BASO% 0.1 % (0.0-0.8); HEMATOCRIT 34.2 % (37.0-47.0); HEMOGLOBIN 10.8 g/dL (12.0-16.0); IMM GRAN# 0.04 X1000 (0.0-0.04); IMM GRAN% 0.2 % (0.0-0.5); LYMPH# 1.16 X1000 (1.2-3.4); LYMPH% 6.2 % (20.5-51.1); MCH 27.7 PG (27-31); MCHC 31.6 g/dL (33-37); MCV 87.7 FL (81-99); MONO# 0.93 X1000 (0.11-0.59); MONO% 4.9 % (1.7-9.3); MPV 11.7 FL (7.4-10.4); NEUT# 16.69 X1000 (1.4-6.5); NEUT% 88.6 % (42.2-75.2); PLT 163 X1000 (130-400); RDW 14.8 % (11.5-14.5); WBC 18.83 X1000 (4.8-10.8)
[2019-01-26 07:38] LABS: AGAP 10; BUN 25 mg/dL (8-22); CALCIUM 9.2 mg/dL (8.8-10.2); CHLORIDE 95 mmol/L (98-107); COSMO 280; CREATININE 0.9 mg/dL (0.5-0.9); ESTIMATED GFR > 60; GLUCOSE 102 mg/dL (70-104); POTASSIUM 3.4 mmol/L (3.5-5.1); SODIUM 138 mmol/L (136-145); TCO2 33 mmol/L (25-35)
[2019-01-26 08:01] LABS: BANDS 4 % (0-1); LYMPHS 4 % (21-51); MONO 4 % (1-9); SEGS 88 % (42-75)
[2019-01-26] MEDS: VENTOLIN HFA INH SCH (08:22)
[2019-01-26] MEDS ORDERED: COREG PO SCH (09:00)
[2019-01-26] MEDS ORDERED: NORVASC PO SCH (09:00)
[2019-01-26] MEDS ORDERED: CARDIZEM CD PO SCH (09:00)
[2019-01-26] MEDS: GLUCOSAMINE 500 MG/CHONDROITIN 400 MG PO SCH (09:45)
[2019-01-26] MEDS: PREDNISONE PO SCH (09:49)
[2019-01-26] MEDS: CELEXA PO SCH (09:49)
[2019-01-26] MEDS: ELIQUIS PO SCH ×2 (09:50→21:18)
[2019-01-26] MEDS: THERA M PLUS PO SCH (09:50)
[2019-01-26] MEDS: COLACE PO SCH (09:50)
[2019-01-26] MEDS: LASIX IV SCH (09:50)
[2019-01-26] MEDS ORDERED: CARDIZEM CD PO ONE (10:50)
[2019-01-26] MEDS ORDERED: PRINIVIL PO SCH ×2 (11:00→21:00)
[2019-01-26] MEDS: PRINIVIL PO SCH (11:35)
--- NOTE | 2019-01-26 11:41 | CARDIOLOGY CONSULTATION ---
DATE: 01/26/2019 REASON FOR CONSULTATION: Cardiology was consulted for atrial fibrillation. The patient is admitted with COPD exacerbation. HISTORY OF PRESENT ILLNESS: A 78-year-old lady, who came to the emergency room with having increasing respiratory distress. She has also had cough with mucoid to mucopurulent expectation to the last couple of days. The patient has severe COPD and has been on oxygen and nebulizers at home. She also thought that she had fevers, but feels well after she was admitted to the hospital. Denies any chest pain suggestive of angina. During her last hospitalization recently, she was noted to have had atrial fibrillation with broad complex tachycardia with bundle branch block pattern as well. The patient has been on multiple medications as listed below. CT angio was obtained related to chronically elevated D-dimers. It was grossly normal. The patient was started on a Cardizem drip, is currently in sinus rhythm. However, another electrocardiogram done revealed broad complex tachycardia with likely 2 to 1 conduction as well. REVIEW OF SYSTEM: General: A 14-point review of systems was done. GI System: There is no history of nausea, vomiting. There is no history of hematemesis or melena. Central nervous system: No focal weakness to suggest a CVA or TIA. Genitourinary: There is no dysuria or hematuria. PAST MEDICAL HISTORY: 1. Severe COPD on oxygen and inhalers. 2. History of thoracic aorta aneurysm repair, previous intervention at [facility]. Followed by Dr. Martin. 3. Breast cancer with lumpectomy. 4. Hypertension. 5. Hysterectomy. 6. Hernia repair. 7. Hyperlipidemia. 8. She has a 50 pack-year history of tobacco abuse. Nonsmoker for many years. 9. Atrial fibrillation, paroxysmal. 10. Anticoagulation therapy. HOME MEDICATIONS: Include Lasix 10 mg a day, hydroxyzine 50 mg p.o. t.i.d., albuterol nebulizers, amlodipine 5 mg a day, Eliquis 5 mg p.o. b.i.d., atorvastatin 40, Coreg 6.25 b.i.d., Celexa 40, diltiazem 120, docusate 100, lisinopril 10, prednisone 20, trazodone 50. PHYSICAL EXAMINATION: Cardiovascular system: Blood pressure was 161/85. First and second heart sounds were heard. There was no S3 gallop. Respiratory system: Bilateral expiratory wheeze. Scattered diminished breath sounds bilaterally. Abdomen: Soft, nontender. There was no guarding or rigidity. Bowel sounds were heard. Central nervous system: Alert and oriented. Was moving all 4 extremities. Examination of all four extremities revealed trace edema. HEENT: Atraumatic. Pupils were equal and reacting to light. LABORATORY EXAMINATION: Revealed sodium 138, potassium 3.4, BUN 25, creatinine 0.9. Cardiac enzymes are negative. TSH 4.28. ProBNP 3501. Hematology: When she came in WBC 20.38, hemoglobin 11.2, hematocrit 34, platelet count of 159. Coagulation: D-dimer 2.01. IMAGING STUDIES: CT angiogram was done which revealed patchy pneumonia, emphysematous changes, distended esophagus. Possibility of aspiration pneumonia cannot be ruled out. Last echocardiogram in 1999 had ejection fraction of 70% with diastolic dysfunction. ASSESSMENT AND PLAN: Ms. Jazz Jenkins is a 78-year-old lady with history of hypertension, status post thoracic aorta aneurysm repair in the past, severe chronic obstructive pulmonary disease, hyperlipidemia, paroxysmal atrial fibrillation comes in with complaints of having had cough with mucoid to mucopurulent expectoration, in addition to palpitations and shortness of breath. From a cardiac standpoint: 1. She has been ruled out for myocardial infarction by cardiac enzymes. 2. She is on multiple medications. She is currently in sinus rhythm. We will discontinue the Cardizem drip. Put her on Cardizem CD 240 mg a day. She is also on amlodipine. We will discontinue that, and she is on beta-blockers. Given severe chronic obstructive pulmonary disease, I will discontinue the beta blockers. We will increase her lisinopril to 20 mg a day. We will try to control blood pressure with Cardizem and increasing doses of lisinopril given her severe chronic obstructive pulmonary disease; however if that can be controlled instead of Coreg, we will put her on Toprol if required. 3. She had been in atrial fibrillation before electrocardiogram revealed atrial fibrillation. In addition, there was electrocardiogram with broad complex tachycardia with 2 to 1 conduction at a rate of 134 beats per minute on multiple medications. Repeat electrocardiogram revealed sinus rhythm. We will continue with anticoagulation therapy with Eliquis. 4. She has pneumonia with elevated white count and symptoms of cough with mucopurulent expectoration. She is on multiple antibiotics. I have not made any changes. 5. Hyperlipidemia. She is on Lipitor. Thank you for the consult. We will follow hospital course. cc: Shashi Oconnell MD
--- NOTE | 2019-01-26 14:51 | PROGRESS NOTE ---
DATE: 01/26/2019 SUBJECTIVE: This morning, Ms. Jenkins referred to be doing a little better. Shortness of breath has significantly improved. OBJECTIVE: Vital Signs: Blood pressure is 160/65, pulse of 78, respirations 20, temperature 97.8 degrees, the patient is saturating 93%. General: Ms. Jenkins is a 78-year-old, elderly, female. She is in bed. No distress. Mucosa is pink and moist. Anicteric. Acyanotic. Neck: Supple. Chest: Air entry is bilaterally reduced. A few distant wheezing. Cardiovascular: Irregularly irregular, but rate controlled. GI: Abdomen is soft, nontender. Extremities: No pedal edema. [employer]: The patient is awake, alert, and oriented. LABORATORY DATA: The patient's lab work has also been reviewed. WBC is down to 18.83, hemoglobin is 10.8, platelet count of 163,000. Chemistry is also reviewed and unremarkable. MEDICATIONS: The patient's current medications have all been reviewed. No changes. MICROBIOLOGY: So far, blood cultures are still. IMAGING STUDIES: A chest x-ray showed no evidence of acute disease. A pulmonary CTA was negative for PE. However, there was patchy pneumonia plus/minus pulmonary edema. Retained fluid in the esophagus. ASSESSMENT: 1. Acute on chronic hypoxemic respiratory failure. The patient is now on 4 liters. Normally uses about 3.5 liters at home. 2. Patchy multifocal gram-negative giovany bronchopneumonia. The patient is on antimicrobial coverage. 3. Atrial fibrillation with rapid ventricular response on presentation. Much better control now. Cardiology is on board. The patient's current electrocardiogram seems to be in sinus. 4. Pulmonary edema secondary to congestive heart failure with preserved ejection fraction. 5. History of chronic obstructive pulmonary disease, on home oxygen. cc: Regis Painter MD
[2019-01-26] MEDS: DESYREL PO SCH (21:18)
[2019-01-26] MEDS: LIPITOR PO SCH (21:18)
[2019-01-27] MEDS: ROCEPHIN 1 GM in NS 50 ML IV SCH ×2 (00:45→22:25)
[2019-01-27] MEDS: DUONEB (A & A) INH PRN ×4 (04:52→23:38)
[2019-01-27 06:53] LABS: BASO# 0.01 X1000 (0.0-0.2); BASO% 0.1 % (0.0-0.8); EOS# 0.08 X1000 (0.0-0.7); EOS% 0.6 % (0.0-10.0); HEMATOCRIT 36.5 % (37.0-47.0); HEMOGLOBIN 11.4 g/dL (12.0-16.0); IMM GRAN# 0.02 X1000 (0.0-0.04); IMM GRAN% 0.1 % (0.0-0.5); LYMPH# 1.41 X1000 (1.2-3.4); LYMPH% 9.7 % (20.5-51.1); MCH 27.5 PG (27-31); MCHC 31.2 g/dL (33-37); MONO% 6.2 % (1.7-9.3); MPV 11.8 FL (7.4-10.4); NEUT# 12.08 X1000 (1.4-6.5); NEUT% 83.3 % (42.2-75.2); PLT 173 X1000 (130-400); RBC 4.15 XMIL (4.2-5.4); RDW 14.9 % (11.5-14.5)
--- NOTE | 2019-01-27 07:11 | EKG Report ---
Test Performed on : 01/27/2019 06:52:24 AM Test Reason : tachycardia Blood Pressure : / mmHG Vent. Rate : 067 BPM Atrial Rate : 067 BPM P-R Int : 178 ms QRS Dur : 094 ms QT Int : 402 ms P-R-T Axes : 067 029 044 degrees QTc Int : 424 ms Normal sinus rhythm. Nonspecific ST abnormality Abnormal ECG When compared with ECG of 25-JAN-2019 21:23, (Unconfirmed) No significant change was found Confirmed by Aparna SARMIENTO, Lavon ([id number]) on 01/27/2019 8:43:21 AM
[2019-01-27 07:51] LABS: CALCIUM 9.7 mg/dL (8.8-10.2); CREATININE 1.1 mg/dL (0.5-0.9); MAGNESIUM 2.6 mg/dL (1.5-2.7); POTASSIUM 3.5 mmol/L (3.5-5.1)
[2019-01-27] MEDS: PREDNISONE PO SCH (08:03)
[2019-01-27] MEDS: GLUCOSAMINE 500 MG/CHONDROITIN 400 MG PO SCH (08:03)
[2019-01-27] MEDS: LASIX IV SCH (08:03)
[2019-01-27] MEDS: ELIQUIS PO SCH ×2 (08:03→20:00)
[2019-01-27] MEDS: PRINIVIL PO SCH (08:03)
[2019-01-27] MEDS: COLACE PO SCH (08:04)
[2019-01-27] MEDS: CELEXA PO SCH (08:04)
[2019-01-27] MEDS: THERA M PLUS PO SCH (08:04)
[2019-01-27] MEDS: VENTOLIN HFA INH SCH (08:23)
[2019-01-27] MEDS ORDERED: GLYCERIN ADULT PR ONE (10:50)
[2019-01-27] MEDS: CARDIZEM CD PO SCH (11:37)
--- NOTE | 2019-01-27 18:00 | PROGRESS NOTE ---
DATE: 01/27/2019 SUBJECTIVE: This morning Miss Jenkins refers to be doing a lot better. She still has some cough. Per the nursing staff, the night was uneventful. Pulse has been under control, and this morning EKG shows a normal sinus rhythm with a rate of about 75. OBJECTIVE: Vital signs: Blood pressure is currently 148/73, pulse of 76, respiration is 21, temperature 98.3 degrees, and the patient is saturating 94 percent to 96 percent. General: Miss Jenkins is a 78-year-old, elderly, female. She is in bed. No distress. heent: Mucosa is pink and moist. Anicteric. Acyanotic. Neck: Supple. Chest: Air entry was bilaterally reduced. I did not hear any wheezing or rhonchi. Cardiovascular: Regular rate. No murmurs. No rubs. No gallops. Gastrointestinal: Abdomen was soft, nontender. Bowel sounds present. There was no hepatosplenomegaly. Extremities: No pedal edema. Distal pulses present. CENTRAL NERVOUS SYSTEM: The patient is awake, alert, and oriented. LABORATORY DATA: WBC is down to 14.50, hemoglobin is 11.4, platelet count of 173,000. Chemistry is also reviewed. Creatinine is 1.1 and BUN is up to 49. ASSESSMENT: 1. Acute on chronic hypoxemic respiratory failure, improved. 2. Patchy multifocal bronchopneumonia. The patient is currently on ceftriaxone; today is day 2. 3. Chronic obstructive pulmonary disease in mild exacerbation on home 2 oxygen. Continue with standard of care. 4. Atrial fibrillation with rapid ventricular response on presentation, controlled. The patient's heart rate has converted to sinus. Cardiology is on board. 5. Pulmonary edema secondary to congestive heart failure with preserved ejection fraction, improved. 6. Elevated BUN. I think this is an indication of mild intravascular depletion from over- diuresis. IV diuretic has been discontinued today. We are going to follow up on the electrolytes, and we will also encourage Miss Jnekins to adequately hydrate herself orally. So, for today we are going to discontinue the Bro catheter and discontinue the IV Lasix, encourage oral hydration, transfer Miss Jenkins from the ICU to medical floor, get Physical Therapy to start working with her, and hopefully plan her discharge in the next 24 to 48 hours. cc: Regis Painter MD
[2019-01-27] MEDS: DESYREL PO SCH (20:00)
[2019-01-27] MEDS: LIPITOR PO SCH (20:00)
[2019-01-28 05:40] LABS: HEMATOCRIT 32.4 % (37.0-47.0); HEMOGLOBIN 10.3 g/dL (12.0-16.0); MCH 27.9 PG (27-31); MCHC 31.8 g/dL (33-37); MCV 87.8 FL (81-99); MPV 11.7 FL (7.4-10.4); RBC 3.69 XMIL (4.2-5.4); RDW 14.8 % (11.5-14.5); WBC 9.34 X1000 (4.8-10.8)
[2019-01-28 06:25] LABS: ALBUMIN 3.3 g/dL (3.5-5.0); CALCIUM 9.2 mg/dL (8.8-10.2); CREATININE 1.2 mg/dL (0.5-0.9); PHOSPHORUS 3.9 mg/dL (2.7-4.5); POTASSIUM 3.4 mmol/L (3.5-5.1)
--- NOTE | 2019-01-28 07:39 | Diag Imaging Result Doc PS360 ---
EXAM: CHEST-PORTABLE INDICATION: dyspnea TECHNIQUE: One view COMPARISON: 01/25/2019 FINDINGS: The lungs remain grossly clear. No new consolidation is identified. Cardiac silhouette is stable. IMPRESSION: Stable chest with no definite acute pathology by plain radiograph. Electronically signed by Hugh Oreilly 01/28/2019 7:36 AM
[2019-01-28] MEDS: DUONEB (A & A) INH PRN ×2 (08:09→13:06)
[2019-01-28] MEDS: VENTOLIN HFA INH SCH (08:10)
[2019-01-28] MEDS: CARDIZEM CD PO SCH (08:21)
[2019-01-28] MEDS: GLUCOSAMINE 500 MG/CHONDROITIN 400 MG PO SCH (08:21)
[2019-01-28] MEDS: APRESOLINE PO SCH ×2 (08:21→13:09)
[2019-01-28] MEDS: COLACE PO SCH (08:21)
[2019-01-28] MEDS: PREDNISONE PO SCH (08:21)
[2019-01-28] MEDS: THERA M PLUS PO SCH (08:21)
[2019-01-28] MEDS: ELIQUIS PO SCH (08:21)
[2019-01-28] MEDS: CELEXA PO SCH (08:21)
[2019-01-28] MEDS ORDERED: COREG PO SCH (09:00)
[2019-01-28 13:06] VITALS: BP 120/65
--- NOTE | 2019-01-29 17:22 | DISCHARGE SUMMARY ---
ADMISSION DATE: 01/26/2019 DISCHARGE DATE: 01/28/2019 DISPOSITION: Home. FOLLOWUP: Ms. Mary Anne Guillory CONSULTATION DURING THIS ADMISSION: Cardiology was consulted. Patient was seen by Dr. Oconnell. ADMISSION DIAGNOSES: 1. Chronic obstructive pulmonary disease with exacerbation. 2. Acute kidney injury. 3. Atrial fibrillation with rapid ventricular response. 4. Hypertension. DIAGNOSES AT THE TIME OF DISCHARGE: 1. Acute on chronic hypoxemic respiratory failure improved. 2. Patchy multifocal bronchopneumonia. 3. Chronic obstructive pulmonary disease in mild exacerbation. 4. Atrial fibrillation with rapid ventricular response on presentation improved. 5. Pulmonary edema secondary to congestive heart failure with preserved ejection fraction. 6. Clinical volume depletion. DISCHARGE MEDICATIONS: 1. Atorvastatin 40 mg p.o. daily. 2. Multivitamin. 3. Citalopram 40 mg p.o. daily. 4. Trazodone 50 mg p.o. at bedtime. 5. Hydroxyzine p.r.n. 6. Colace 100 mg p.o. daily. 7. Prednisone 20 mg p.o. daily. 8. Apixaban 5 mg b.i.d. 9. Cardizem 240 p.o. daily. 10. Augmentin 875 p.o. daily b.i.d. 11. Hydralazine 25 mg b.i.d. 3 times per day. 12. Carvedilol 6.25 b.i.d. PRESENTING COMPLAINT: Shortness of breath. HISTORY OF PRESENTING COMPLAINT: Ms. Jenkins is a 78-year-old female who is known to have severe COPD on home oxygen, came to the emergency department because of shortness of breath which has been going on for some time and is progressively getting worse. Nebulization at home is not helping. She was evaluated in the ER including imaging studies. A chest x-ray done which showed no evidence of acute disease, so CTA of the lungs showed patchy pneumonia plus or minus pulmonary edema. A possibility of aspiration pneumonia could not be excluded. Ms. Jenkins was admitted to the ICU initially because she was found to be in atrial fibrillation RVR. HOSPITAL COURSE: Ms. Jenkins was started on IV Cardizem and broad-spectrum IV antibiotics. She continues to improve. The heart rate got under control, so she was started back on oral Cardizem, which she has been tolerating well and the pulse has been stable. Ms. Jenkins was also started on antibiotics. There was a concern that she could have aspiration pneumonitis. She was transitioned to p.o. Augmentin. Her white cell count has normalized at the time of the discharge. This morning Ms. Jenkins' blood pressure was slightly high, so some changes were made to her blood pressure medications. At the time of the discharge, his blood pressure was 130/65, pulse of 58, respirations 20, temperature 97.5 degrees. Patient was saturating 99% on 4 L. We think she is clinically stable to be discharged. Her troponins were trended 4 time and were all negative. She is going to follow up with Dr. Oconnell as outpatient as well as her primary care doctor, Ms. Mary Anne Guillory. DISCHARGE INSTRUCTIONS: All the discharge instructions have been discussed with Ms. Jenkins. Of note, Ms. Jenkins' creatinine was slightly elevated during the hospital course. It looks like she goes back and forth with recurrent acute kidney injuries, so we will discontinue her lisinopril as well as the Lasix and we have advised that she does a BMP within a week and follow it up with her primary care doctor. TIME SPENT AT DISCHARGE: 37 minutes. cc: Regis Painter MD
== END 2019-01-28 14:20 | disposition home health service (06) | DRG 308 ==
LOC: ED 18:59 → SUATTDRO 01-26 00:17 → ICU 01-26 00:17
PROVIDERS: ATTEND Internal Medicine

== ENCOUNTER 2019-03-24 11:30 | Inpatient (IN) ==
--- NOTE | 2019-03-24 11:49 | PROVIDER DOCUMENTATION ---
HPI-Respiratory General - General Chief Complaint: Shortness of Breath Stated Complaint: SOB Time Seen by Provider: 03/24/19 11:37 Source: patient Allergies/Adverse Reactions: Patient Allergies Allergy/AdvReac Type Severity Reaction Status Date / Time hydrocodone bitartrate * Allergy Mild NAUSEA Verified 03/24/19 12:44 [From Lortab] Home Medications: Home Medication List Medication Instructions Recorded Confirmed Last Taken Type Atorvastatin Calcium [Lipitor] 40 mg PO QHS 01/18/14 03/24/19 01/24/19 History Citalopram [Celexa] 40 mg PO DAILY 01/18/14 03/24/19 01/25/19 History Glucosamin,[id number] 1 each PO DAILY 01/18/14 03/24/19 01/25/19 History [Glucoten Caplet] Multivitamin with Minerals 1 each PO DAILY 01/18/14 03/24/19 01/25/19 History [Multiple Vitamin] Albuterol 2.5MG/Ipratrop 0.5MG 3 ml INH Q4H PRN PRN #10 neb 12/05/16 03/24/19 03/19/18 Rx [Duoneb (A & A)] Albuterol Sulfate Inhaler 2 puff INH QAM 05/07/17 03/24/19 03/19/18 History [Ventolin Hfa] Trazodone [Desyrel] 50 mg PO QHS 05/07/17 03/24/19 03/19/18 History Docusate Sodium 100 mg PO DAILY 05/10/17 03/24/19 01/25/19 History Hydroxyzine Pamoate 1 - 2 cap PO TID PRN 05/10/17 03/24/19 03/19/18 History Apixaban [Eliquis] 5 mg PO BID #60 tab 03/15/18 03/24/19 01/25/19 Rx Prednisone [Deltasone] 20 mg PO DAILY #5 tab 03/15/18 03/24/19 01/25/19 Rx Amoxicillin/Pot Clavulanate 875 mg PO Q12HR #10 tab 01/28/19 03/24/19 Unknown Rx [Augmentin] Carvedilol [Coreg] 6.25 mg PO BID #120 tab 01/28/19 03/24/19 Unknown Rx Diltiazem C.d. [Cardizem Cd] 240 mg PO DAILY #120 cap 01/28/19 03/24/19 Unknown Rx Hydralazine [Apresoline] 25 mg PO TID #120 tab 01/28/19 03/24/19 Unknown Rx Doxycycline 100 mg PO BID #14 tab 03/18/19 03/24/19 Unknown Rx Prednisone 20 mg PO BID #10 tab 03/18/19 03/24/19 Unknown Rx - History of Present Illness-Resp Nature of Presenting Problem: 78 yr old F, hx of HF, COPD, HTN, presenting with worsening SOB over the past few days; the pt was recently seen in the ED last week for similar symptoms. Her sister reports That she has been feeling poorly over the past few days, and the pt called her this morning asking her to bring her to the ED because she was so short of breath; when she arrived she was 88% on room air; the pt uses 3.5L continuous O2 at home, but this has not been helping her over the past few days. Onset/Duration: reports: 24 hours ago Timing: reports: still present Context: denies: recent foreign travel Exposure: reports: unknown cause Cough Quality/Degree: reports: moderate Episode Frequency: chronic episodes Associated Symptoms: reports: cough Similar Symptoms Previously?: Yes Review of Systems - Adult - REVIEW OF SYSTEMS - ADULT Constitutional: reports: no symptoms reported Eyes: reports: no symptoms reported Ears, Nose, Mouth & Throat: reports: no symptoms reported Cardiovascular: reports: no symptoms reported Respiratory: reports: see HPI Gastrointestinal: reports: no symptoms reported Genitourinary: reports: no symptoms reported Musculoskeletal: reports: no symptoms reported Integumentary: reports: no symptoms reported Neurological: reports: no symptoms reported Psychiatric: reports: no symptoms reported Past History - Adult - PAST MEDICAL HISTORY-ADULT Review of Records: reports: Old Records Reviewed, Nursing Assessment Review Major Childhood Illnesses: reports: denies history Cardiovascular: reports: HTN Respiratory: reports: asthma, COPD Gastrointestinal: reports: denies history Obstetrical/Gynecological: reports: other (R breast Ca) Genitourinary: reports: denies history Musculoskeletal: reports: denies history Neurological: reports: denies history Endocrine/Immune: reports: denies history Other Conditions: reports: denies history - PRIOR SURGERIES/PROCEDURES Surgical/Procedure History: reports: hysterectomy, hernia repair - IMMUNIZATION STATUS Childhood Immunizations: See Nurse Assessment Flu Vaccine: See Nurse Assessment - FAMILY HISTORY Family History: reviewed, not pertinent - SOCIAL HISTORY Living Situation: family Physical Exam-General - CONSTITUTIONAL General Appearance: alert, moderate distress - EYES Eyes: PERRL/EOMI - HEAD, EARS, NOSE, MOUTH & THROAT HENMT: normocephalic/atraumatic, moist mucous membranes - RESPIRATORY Respiratory: decreased breath sounds, wheezing, retractions - CARDIOVASCULAR Cardiovascular: regular rate, rhythm - GASTROINTESTINAL (ABDOMEN) Abdominal Exam: normal bowel sounds, non tender, soft - SKIN Integumentary: warm/dry - PSYCHIATRIC Psych/Mental Status: normal mood/affect, oriented x 3 - HEART Score HEART Score: History: Slightly Suspicious HEART Score: ECG: Normal HEART Score: Age: > or = 65 Years HEART Score: Risk Factors for Atherosclerotic Disease: 1 or 2 Risk Factors HEART Score: Troponin: < or = Normal Limit Total HEART Score:: 3 Progress - PLAN OF CARE/RESULTS Progress/Plan/Lab Results: Vital Signs - 8 hr 03/24/19 11:33 03/24/19 12:29 03/24/19 12:48 Temperature 98.1 F Pulse Rate 87 79 Respiratory Rate 22 28 H Blood Pressure 112/65 O2 Sat by Pulse Oximetry 88 L 98 97 03/24/19 13:39 Temperature Pulse Rate 72 Respiratory Rate Blood Pressure 111/60 O2 Sat by Pulse Oximetry 97 Laboratory Results - last 24 hr 03/24/19 03/24/19 03/24/19 12:02 12:02 12:02 WBC 7.46 RBC 3.86 L Hgb 10.9 L Hct 34.9 L MCV 90.4 MCH 28.2 MCHC 31.2 L RDW Std Deviation 14.9 H Plt Count 157 MPV 11.2 H Immature Gran % (Auto) 0.8 H Neut % (Auto) 81.3 H Lymph % (Auto) 6.0 L Hartley % (Auto) 10.7 H Eos % (Auto) 0.8 Baso % (Auto) 0.4 Immature Gran # (Auto) 0.06 H Neut # (Auto) 6.06 Lymph # (Auto) 0.45 L Hartley # (Auto) 0.80 H Eos # (Auto) 0.06 Baso # (Auto) 0.03 PT INR PTT (Actin FS) Specimen Type Sample Site pH pCO2 pO2 HCO3 Base Excess Oxyhemoglobin ABG O2 Sat (Calculated) ABG O2 Saturation ABG Carboxyhemoglobin ABG Methemoglobin Dinesh Test A-a O2 Difference Total Hemoglobin Lactate Liter Flow Blood Gas Modality FiO2 % Sodium 141 Potassium 4.0 Chloride 98 Carbon Dioxide 32 Anion Gap 11 BUN 23 H Creatinine 0.9 Estimated GFR/1.73 m2 > 60 BUN/Creatinine Ratio 26 Glucose 138 H Calculated Osmolality 287 Calcium 8.9 Total Bilirubin 0.39 AST 14 ALT 9 L Alkaline Phosphatase 45 Creatine Kinase 46 Troponin T High Sens Cww-O-Hbpzngmvrud Pept 539 H Total Protein 6.4 Albumin 3.9 Globulin 2.5 Albumin/Globulin Ratio 1.6 03/24/19 03/24/19 03/24/19 12:02 12:02 12:25 WBC RBC Hgb Hct MCV MCH MCHC RDW Std Deviation Plt Count MPV Immature Gran % (Auto) Neut % (Auto) Lymph % (Auto) Hartley % (Auto) Eos % (Auto) Baso % (Auto) Immature Gran # (Auto) Neut # (Auto) Lymph # (Auto) Hartley # (Auto) Eos # (Auto) Baso # (Auto) PT 15.4 INR 1.21 PTT (Actin FS) 29.7 Specimen Type ARTERIAL Sample Site R RADIAL pH 7.32 L pCO2 71 H* pO2 133 H HCO3 31.1 H Base Excess 7.9 H Oxyhemoglobin 96.6 ABG O2 Sat (Calculated) 18.3 ABG O2 Saturation 99.9 ABG Carboxyhemoglobin 2.00 ABG Methemoglobin 1.3 Dinesh Test YES A-a O2 Difference 135.0 Total Hemoglobin 13.3 Lactate 0.90 Liter Flow 15.0 Blood Gas Modality VENTIMASK FiO2 % 50.0 Sodium Potassium Chloride Carbon Dioxide Anion Gap BUN Creatinine Estimated GFR/1.73 m2 BUN/Creatinine Ratio Glucose Calculated Osmolality Calcium Total Bilirubin AST ALT Alkaline Phosphatase Creatine Kinase Troponin T High Sens 39 H Sms-E-Obfgyrczcox Pept Total Protein Albumin Globulin Albumin/Globulin Ratio Orders Category Date Time Status CHEST-PORTABLE [RAD] Stat Exams 03/24/19 11:51 Completed ABG [RESP] Routine Lab 03/24/19 12:25 Completed CBC WITH ELECTRONIC DIFF [HEME] Stat Lab 03/24/19 12:02 Completed CK PROFILE [SP CHEM] Stat Lab 03/24/19 12:02 Completed COMPREHENSIVE METABOLIC PANEL [CHEM] Stat Lab 03/24/19 12:02 Completed IMMUNOGLOBULINS SERUM [HH] Stat Lab 03/24/19 13:40 Ordered PRO B-NATRIURETIC PEPTIDE Stat Lab 03/24/19 12:02 Completed PROCALCITONIN [WADE] Routine Lab 03/24/19 13:40 Ordered PROTIME WITH INR [COAG] Stat Lab 03/24/19 12:02 Completed PTT [COAG] Stat Lab 03/24/19 12:02 Completed TROPONIN T HIGH SENSITIVITY Stat Lab 03/24/19 12:02 Completed Albuterol 2.5MG/Ipratrop 0.5MG [Duoneb (A & A)] Med 03/24/19 12:30 Discontinued 6 ml .ROUTE .STK-MED ONE Albuterol 2.5MG/Ipratrop 0.5MG [Duoneb (A & A)] Med 03/24/19 12:48 Discontinued 6 ml INH NOW ONE Budesonide [Pulmicort] Med 03/24/19 12:19 Discontinued 1 mg INH NOW ONE Furosemide [Lasix] Med 03/24/19 13:01 Discontinued 40 mg IV NOW ONE Aerosol Treatments Routine Oth 03/24/19 12:19 Completed Aerosol Treatments Routine Oth 03/24/19 12:48 Completed Aerosol Treatments Stat Oth 03/24/19 12:19 Completed Aerosol Treatments Stat Oth 03/24/19 12:48 Completed BIPAP Stat Oth 03/24/19 12:23 Active Transfer/Admit Order [TRANSFER] Routine Transfer 03/24/19 13:08 Ordered Given abnormal ABG, clinical status, will discuss with hospitalist for plan to admit. Result Diagrams: 03/24/19 12:02 03/24/19 12:02 - EKG 1 Time of EKG reading by physician:: 11:50 EKG Read and Signed by:: Jennifer Carranza Rate: 78 Rhythm: sinus rhythm [place]: normal QRS: normal MD Interval: normal ST Wave: non-specific ST changes - XRAY 1 XRAY Study: Chest Impression: See EMR Report ("CHEST-PORTABLE - 03/24/2019 INDICATION: Short of Breath, Wheezing COMPARISON: 03/18/2019 FINDINGS: Stable hyperexpanded lungs suggesting COPD. Stable faint reticulonodular infiltrates in the lung bases consistent with atypical pneumonia or pulmonary fibrosis. Heart size and pulmonary vascularity is normal. Stable stents in the descending thoracic aorta. No pneumothorax or pleural effusion. IMPRESSION: No change from prior exams. Electronically signed by Suraj Pollard 03/24/2019 12:15 PM") - CONSULTS/PCP/HOSPITALIST Notification #1 *Consult/PCP/Hospitalist*: Sophy (for hospitalist) Time Discussed: 13:15 Consult Disposition: Admit Departure - Departure Date of Disposition Decision: 03/24/19 Time of Disposition Decision: 13:41 DIAGNOSIS: COPD exacerbation, Hypoxia Disposition: ADMITTED INPATIENT 09 Certified Medical Emergency: Emergent Condition: Stable Referrals and Follow-Ups: Mary Anne Guillory CRNP [Primary Care Provider] - - Critical Care Note This patient required my direct & personal management of CC.: No Attestation - Physician/ DIPTI Attestation Patient care was provided by Advanced Practice Provider:: No The physician spent face to face time with patient:: Yes Advanced Practice Provider documentation review:: Supervising physician onsite and consulted in the evaluation and care of this patient. The physician did have a face to face encounter with the patient.
[2019-03-24 12:16] LABS: BASO# 0.03 X1000 (0.0-0.2); BASO% 0.4 % (0.0-0.8); EOS# 0.06 X1000 (0.0-0.7); EOS% 0.8 % (0.0-10.0); HEMATOCRIT 34.9 % (37.0-47.0); HEMOGLOBIN 10.9 g/dL (12.0-16.0); IMM GRAN# 0.06 X1000 (0.0-0.04); IMM GRAN% 0.8 % (0.0-0.5); LYMPH# 0.45 X1000 (1.2-3.4); MCH 28.2 PG (27-31); MCHC 31.2 g/dL (33-37); MCV 90.4 FL (81-99); MONO% 10.7 % (1.7-9.3); MPV 11.2 FL (7.4-10.4); NEUT# 6.06 X1000 (1.4-6.5); NEUT% 81.3 % (42.2-75.2); PLT 157 X1000 (130-400); RBC 3.86 XMIL (4.2-5.4); RDW 14.9 % (11.5-14.5); WBC 7.46 X1000 (4.8-10.8)
--- NOTE | 2019-03-24 12:17 | Diag Imaging Result Doc PS360 ---
CHEST-PORTABLE - 03/24/2019 INDICATION: Short of Breath, Wheezing COMPARISON: 03/18/2019 FINDINGS: Stable hyperexpanded lungs suggesting COPD. Stable faint reticulonodular infiltrates in the lung bases consistent with atypical pneumonia or pulmonary fibrosis. Heart size and pulmonary vascularity is normal. Stable stents in the descending thoracic aorta. No pneumothorax or pleural effusion. IMPRESSION: No change from prior exams. Electronically signed by Suraj Pollard 03/24/2019 12:15 PM
[2019-03-24] MEDS ORDERED: PULMICORT INH ONE (12:19)
[2019-03-24 12:25] LABS: INR 1.21; PROTIME 15.4 Seconds (11.0-16.0); PTT 29.7 Seconds (22.3-41.8)
[2019-03-24] MEDS ORDERED: DUONEB (A & A) ONE (12:30)
[2019-03-24 12:33] LABS: AGAP 11; ALB/GLOB RATIO 1.6; ALBUMIN 3.9 g/dL (3.5-5.0); ALKALINE PHOSPHATASE 45 U/L (32-104); BUN 23 mg/dL (8-22); CALCIUM 8.9 mg/dL (8.8-10.2); CHLORIDE 98 mmol/L (98-107); CK PROFILE 46 U/L (24-173); COSMO 287; CREATININE 0.9 mg/dL (0.5-0.9); ESTIMATED GFR > 60; GLUCOSE 138 mg/dL (70-104); GOT 14 U/L (10-30); GPT 9 U/L (10-36); SODIUM 141 mmol/L (136-145); TCO2 32 mmol/L (25-35); TOTAL BILIRUBIN 0.39 mg/dL (0.20-1.00); TOTAL PROTEIN 6.4 g/dL (6.3-8.3)
[2019-03-24 12:36] LABS: ALLEN TEST YES; BE 7.9 mmoll (-3.0-3.0); BLOOD TYPE ARTERIAL; HCO3-(ACT) 31.1 mmoll (20.0-26.0); METHB 1.3 % (0.0-1.5); O2(CT) 18.3 mL/dL (15.0-23.0); O2HB 96.6 % (95.0-99.0); PO2(98.6) 133 mmHg (60-100); SAMPLE BLOOD; SAO2 99.9 % (95.0-100.0); THB 13.3 g/dL (11.5-17.4); pH(98.6) 7.32 (7.35-7.45)
[2019-03-24 12:38] LABS: MODALITY VENTIMASK; PCO2(98.6) 71 mmHg (35-45)
[2019-03-24] MEDS ORDERED: DUONEB (A & A) INH ONE (12:48)
[2019-03-24] MEDS ORDERED: LASIX IV ONE (13:01)
--- NOTE | 2019-03-24 13:51 | EKG Report ---
Test Performed on : 03/24/2019 11:48:40 AM Test Reason : SOB Blood Pressure : / mmHG Vent. Rate : 078 BPM Atrial Rate : 078 BPM P-R Int : 162 ms QRS Dur : 080 ms QT Int : 394 ms P-R-T Axes : 091 -04 013 degrees QTc Int : 449 ms Normal sinus rhythm. Nonspecific ST and T wave abnormality Abnormal ECG When compared with ECG of 18-MAR-2019 16:47, (Unconfirmed) ST now depressed in Inferior leads Unconfirmed Result
[2019-03-24] MEDS: APRESOLINE PO SCH (16:14)
[2019-03-24] MEDS: LEVAQUIN 500 MG/D5W 500 MG/100 ML IVPB IV SCH (16:14)
[2019-03-24] MEDS: SOLU-MEDROL IV SCH (16:14)
[2019-03-24] MEDS: DUONEB (A & A) INH SCH ×3 (16:59→23:08)
[2019-03-24] MEDS ORDERED: ZOFRAN IV PRN (17:14)
[2019-03-24 19:07] LABS: ALLEN TEST YES; BLOOD TYPE ARTERIAL; HCO3-(ACT) 34.2 mmoll (20.0-26.0); METHB 1.5 % (0.0-1.5); O2(CT) 14.7 mL/dL (15.0-23.0); O2HB 94.7 % (95.0-99.0); PO2(98.6) 69 mmHg (60-100); SAMPLE BLOOD; SAO2 97.7 % (95.0-100.0); pH(98.6) 7.44 (7.35-7.45)
[2019-03-24 19:09] LABS: MODALITY BI PAP; PCO2(98.6) 56 mmHg (35-45)
--- NOTE | 2019-03-24 20:36 | HISTORY AND PHYSICAL ---
PRIMARY CARE PROVIDER: ZAINAB Bravo. SOCIAL PSYCHOLOGIST: Dr. Vang. CHIEF COMPLAINT: Shortness of breath. HISTORY OF PRESENT ILLNESS: Ms. Jenkins is a 78-year-old female who reports she started feeling short of breath on Saturday, and continued to progressively get worse. She had an episode of nausea and vomiting on Saturday. She had a fever up to 105 this a.m.. She has also had some wheezing. She went to the ED last week and was diagnosed with pneumonia and has been on p.o. antibiotics. She could not remember the name. She does report a productive cough with yellowish sputum. Upon arrival to the ED, her O2 saturation was 88%. She was placed on 4.5 L nasal cannula with not much improvement. They put her on a Venturi mask. She continued to use accessory muscles and have retractions and then she was placed on BiPAP and she was given some bronchodilators. Her chest x-ray continues to show atypical pneumonia, her pulmonary fibrosis. Her ABG showed a pCO2 of 71. She reports that her breathing has much improved after BiPAP and breathing treatments. We will admit her, watch her closely in the ICU. Continue her on bronchodilators, IV steroids, and coverage for atypical pneumonia. PAST MEDICAL HISTORY: COPD, emphysema, hypertension, and breast cancer. PAST SURGICAL HISTORY: Hysterectomy, hernia repair, left mastectomy, aortic aneurysm repair. ALLERGIES: Lortab. SOCIAL HISTORY: She quit smoking 15 years ago. No alcohol or illicit drug use. FAMILY HISTORY: Father with aortic aneurysm who is . Mother due to acute coronary syndrome and OR. REVIEW OF SYSTEMS: Twelve-point review of systems completely negative except for those mentioned in HPI. She denies any headache, chills, dizziness, syncope, palpitations, chest pain, dysuria, any bright red or dark tarry stools. PHYSICAL EXAMINATION: VITAL SIGNS: Temperature is 98.1 degrees, heart rate 71, respirations 24, blood pressure 105/66, O2 is 96% on BiPAP. GENERAL: Ms. Jenkins is a pleasant 78-year-old female who is lying on her right side on the stretcher in no acute distress. HEENT: Atraumatic, normocephalic. PERRL. NECK: Supple. Trachea midline. CARDIOVASCULAR: S1, S2 appreciated. No murmurs, gallops, or rubs noted. No JVD noted. Bilateral pedal pulses are palpable. PULMONARY: Decreased airway entry bilaterally. ABDOMEN: Soft, nontender, nondistended. Positive bowel sounds in 4 quadrants. EXTREMITIES: Lower extremities negative for edema. No signs of cyanosis, cyanosis, or clubbing. NEUROLOGIC: No focal deficits noted. DIAGNOSTIC DATA: EKG shows normal sinus rhythm with nonspecific ST and T-wave abnormality. Chest x-ray shows stable hyperexpanded lung suggesting COPD and stable faint infiltrates in the lung bases consistent with atypical pneumonia or pulmonary fibrosis. Stable stents in the descending thoracic aorta. LABORATORY DATA: White count 7, hemoglobin and hematocrit 10 and 34, platelet count is 157,000. ABG, pH 7.32, pCO2 71, O2 133, bicarb 31, base excess 7.9, O2 is 99% on 50% Ventimask. Chemistry: Sodium 141, potassium 4.0, BUN 23, creatinine 0.9, blood glucose is 138. Troponin is 39. ProBNP is 539. ASSESSMENT AND PLAN: 1. Acute hypoxemic hypercarbic respiratory failure. The patient will continue on BiPAP. We will recheck an electrocardiogram to make sure she is trending in the right direction. Monitor her closely in the intensive care unit. 2. Chronic obstructive pulmonary disease exacerbation. We will continue with supplemental O2, bronchodilators, aggressive pulmonary toilet, IV steroids. 3. Atypical pneumonia versus pulmonary fibrosis. The patient was just diagnosed with pneumonia last week. We will continue on IV Levaquin, bronchodilators, aggressive pulmonary toilet. We will check sputum cultures, blood cultures. 4. Atrial fibrillation proximal. Continue on her anticoagulation and Cardizem. 5. Hypertension. Continue home regimen. 6. Breast cancer history with lumpectomy. Aware. 7. History of thoracic aneurysm repair with stenting. 8. Diastolic congestive heart failure. Does not appear to be in exacerbation. We will monitor her intake and output closely. 9. Further recommendation to follow physician evaluation, laboratory and diagnostic data. Dictated by ZAINAB Mead for Kinsey Lopez MD cc: MD Mary Anne Kennedy CRNP [facility] Boyle, MD
[2019-03-24] MEDS: COREG PO SCH (20:44)
[2019-03-24] MEDS: LIPITOR PO SCH (20:44)
[2019-03-24] MEDS: ELIQUIS PO SCH (20:44)
[2019-03-25] MEDS: SOLU-MEDROL IV SCH ×3 (01:30→15:54)
[2019-03-25] MEDS: DUONEB (A & A) INH SCH ×5 (03:10→23:14)
[2019-03-25 04:52] LABS: ALLEN TEST YES; BLOOD TYPE ARTERIAL; HCO3-(ACT) 32.8 mmoll (20.0-26.0); METHB 0.7 % (0.0-1.5); O2(CT) 11.1 mL/dL (15.0-23.0); O2HB 97.1 % (95.0-99.0); PO2(98.6) 85 mmHg (60-100); SAMPLE BLOOD; SAO2 99.6 % (95.0-100.0); pH(98.6) 7.44 (7.35-7.45)
[2019-03-25 04:55] LABS: MODALITY BI PAP; PCO2(98.6) 52 mmHg (35-45)
[2019-03-25 06:14] LABS: BASO# 0.01 X1000 (0.0-0.2); BASO% 0.1 % (0.0-0.8); HEMATOCRIT 34.4 % (37.0-47.0); HEMOGLOBIN 10.6 g/dL (12.0-16.0); LYMPH# 0.48 X1000 (1.2-3.4); LYMPH% 6.5 % (20.5-51.1); MCH 27.7 PG (27-31); MCHC 30.8 g/dL (33-37); MCV 90.1 FL (81-99); MONO# 0.09 X1000 (0.11-0.59); MONO% 1.2 % (1.7-9.3); MPV 11.6 FL (7.4-10.4); NEUT% 92.2 % (42.2-75.2); PLT 173 X1000 (130-400); RBC 3.82 XMIL (4.2-5.4); RDW 15.1 % (11.5-14.5); WBC 7.38 X1000 (4.8-10.8)
[2019-03-25 06:41] LABS: AGAP 14; ALB/GLOB RATIO 1.2; ALBUMIN 3.6 g/dL (3.5-5.0); ALKALINE PHOSPHATASE 42 U/L (32-104); BUN 32 mg/dL (8-22); CALCIUM 9.2 mg/dL (8.8-10.2); CHLORIDE 98 mmol/L (98-107); COSMO 292; CREATININE 0.8 mg/dL (0.5-0.9); ESTIMATED GFR > 60; GLUCOSE 128 mg/dL (70-104); GOT 12 U/L (10-30); GPT 8 U/L (10-36); SODIUM 142 mmol/L (136-145); TCO2 30 mmol/L (25-35); TOTAL BILIRUBIN 0.36 mg/dL (0.20-1.00); TOTAL PROTEIN 6.7 g/dL (6.3-8.3)
[2019-03-25] MEDS: PRILOSEC PO SCH (07:40)
--- NOTE | 2019-03-25 07:40 | Diag Imaging Result Doc PS360 ---
EXAM: CHEST-PORTABLE HISTORY: short of breath TECHNIQUE: Single view COMPARISON: 03/24/2019 FINDINGS: The lungs are well expanded. No cardiomegaly. No consolidation. Aortic stent. No pleural effusions identified. Likely fibrosis. IMPRESSION: Stable chest. Electronically signed by Franklyn Tanner 03/25/2019 7:38 AM
[2019-03-25] MEDS: CELEXA PO SCH (08:36)
[2019-03-25] MEDS: ELIQUIS PO SCH ×2 (08:37→21:33)
[2019-03-25] MEDS: COLACE PO SCH (08:37)
[2019-03-25] MEDS: APRESOLINE PO SCH ×3 (08:37→19:13)
[2019-03-25] MEDS: CARDIZEM CD PO SCH (08:37)
[2019-03-25] MEDS: COREG PO SCH ×2 (08:37→21:33)
[2019-03-25] MEDS: DUONEB (A & A) INH PRN (09:32)
[2019-03-25] MEDS: LABETALOL IV PRN (11:19)
[2019-03-25] MEDS ORDERED: ATIVAN IV ONE ×2 (13:56→15:42)
[2019-03-25 14:20] LABS: LYMPHS 8 % (21-51); MONO 1 % (1-9); SEGS 91 % (42-75)
[2019-03-25] MEDS: LEVAQUIN 500 MG/D5W 500 MG/100 ML IVPB IV SCH (15:55)
[2019-03-25 16:15] LABS: ALLEN TEST YES; BE 10.7 mmoll (-3.0-3.0); BLOOD TYPE ARTERIAL; HCO3-(ACT) 33.3 mmoll (20.0-26.0); METHB 1.5 % (0.0-1.5); O2(CT) 15.6 mL/dL (15.0-23.0); O2HB 97.4 % (95.0-99.0); PO2(98.6) 184 mmHg (60-100); SAMPLE BLOOD; THB 11.1 g/dL (11.5-17.4); pH(98.6) 7.38 (7.35-7.45)
[2019-03-25 16:18] LABS: MODALITY BI PAP; PCO2(98.6) 64 mmHg (35-45)
--- NOTE | 2019-03-25 19:51 | PROGRESS NOTE ---
DATE: 03/25/2019 SUBJECTIVE: The patient was noted to be very anxious and short of breath this morning and this afternoon. She required 2 doses of Ativan this afternoon. She is currently on BiPAP support. OBJECTIVE: Vital Signs: Temperature 97.7 degrees, blood pressure 157/99, heart rate 76, respirations 27, O2 saturation is 99% on BiPAP. General: Chronically ill- appearing, elderly female, lying in bed, appearing to be anxious with increased work of breathing. Heart: S1, S2 normal. Regular rate and rhythm. Lungs: Bilateral expiratory wheezes noted. Abdomen: Positive bowel sounds. Soft, nontender, nondistended. Extremities: No edema. No cyanosis. No calf tenderness. Neurologic: Alert and oriented x4. She is anxious. She is able to move all 4 extremities. LABORATORY AND DIAGNOSTIC DATA: ABG: PH of 7.38, pCO2 of 64, PO2 of 184, bicarbonate 33. Sodium 142, potassium 4, chloride 98, CO2 of 30, BUN 32, creatinine 0.8, glucose 128. CBC: White blood cell count 7.3, hemoglobin 10, hematocrit 34, platelets 173,000. Chest x-ray: No consolidation. Possible fibrosis. ASSESSMENT AND PLAN: 1. Acute on chronic hypercapnic and hypoxemic respiratory failure. Likely secondary to chronic obstructive pulmonary disease exacerbation. Continue with the current treatment regimen. Dr. Vang is following. 2. Acute chronic obstructive pulmonary disease exacerbation. Continue on the current treatment regimen. 3. History of thoracic aorta aneurysm repair. Aware. 4. Paroxysmal atrial fibrillation. The patient is rate controlled. Continue on Cardizem, Coreg, and Eliquis. 5. Severe anxiety. The patient received a total of 1 mg of Ativan over the course of the day today. We will continue to monitor the patient closely. 6. Situational depression. Continue on Celexa. 7. Hypertension. Continue on the current antihypertensive regimen. 8. Gastrointestinal prophylaxis. Continue on Prilosec. 9. Deep vein thrombosis prophylaxis. The patient is currently on Eliquis. 10. Disposition. We will consult with Palliative Care to assist with goals of care. The patient stated that she was not sure what she wanted her code status to be, so she will remain full code at this time. cc: Kinsey Lopez MD [facility]
[2019-03-25] MEDS: LIPITOR PO SCH (21:33)
--- NOTE | 2019-03-25 21:40 | PULMONOLOGY CONSULTATION ---
DATE: 03/25/2019 REASON FOR CONSULTATION: COPD exacerbation. HISTORY OF PRESENT ILLNESS: Ms. Jenkins is a 78-year-old female with severe COPD, who has been followed in my clinic. She reports her recently had an upper respiratory infection. She has had increasing cough, increasing wheezing with yellow sputum production. She presented to the emergency room with respiratory failure, and has been admitted for additional management. PAST MEDICAL HISTORY: 1. Severe COPD. She has not smoked for several years. 2. Hypertension. 3. Hysterectomy. 4. History of breast cancer with left mastectomy. 5. Multiple stents in the thoracic aorta. SOCIAL HISTORY: No alcohol use. Prior tobacco use. FAMILY HISTORY: Positive for coronary artery disease and aortic aneurysm. REVIEW OF SYSTEMS: As noted in the HPI, but is otherwise negative. PHYSICAL EXAMINATION: Physical exam reveals a well-developed, well-nourished white female. She is eating some Jell-O. She has mild work of breathing. HEENT: Pupils are equal and reactive. Oropharynx appears clear. Neck is supple. Chest reveals diminished breath sounds bilaterally, with scattered wheezing and rhonchi. Cardiac exam: S1, S2. Abdomen is soft. Extremities without edema. DIAGNOSTIC DATA: Chest x-ray reveals scarring in the bases with no change from prior film. She has extensive stenting throughout the thoracic aorta. LABORATORY DATA: White blood count 7.38, hemoglobin 10.6, platelet count 173,000. Arterial blood gas pH 7.38, pCO2 of 64, pO2 of 184. IMPRESSION: A 78-year-old with: 1. Chronic obstructive pulmonary disease exacerbation. 2. Qjpuq-[id number] hypoxemic respiratory failure. 3. Gcjhl-nb-otpnnnf hypercapnic respiratory failure. PLAN: 1. Continue bronchodilators as you are doing. 2. Continue steroids as you are doing. 3. Continue antibiotics as you are doing. 4. Agree with BiPAP at bedtime and p.r.n. cc: Evans Vang MD
[2019-03-26] MEDS: DUONEB (A & A) INH SCH ×6 (03:05→23:17)
[2019-03-26] MEDS: SOLU-MEDROL IV SCH ×3 (04:22→18:23)
[2019-03-26 04:30] LABS: ALLEN TEST YES; BE 10.4 mmoll (-3.0-3.0); BLOOD TYPE ARTERIAL; HCO3-(ACT) 33.1 mmoll (20.0-26.0); METHB 1.1 % (0.0-1.5); O2(CT) 14.9 mL/dL (15.0-23.0); O2HB 97.6 % (95.0-99.0); PO2(98.6) 151 mmHg (60-100); SAMPLE BLOOD; SAO2 99.8 % (95.0-100.0); THB 10.6 g/dL (11.5-17.4); pH(98.6) 7.41 (7.35-7.45)
[2019-03-26 04:59] LABS: BASO# 0.01 X1000 (0.0-0.2); BASO% 0.1 % (0.0-0.8); HEMATOCRIT 32.8 % (37.0-47.0); HEMOGLOBIN 9.9 g/dL (12.0-16.0); IMM GRAN# 0.02 X1000 (0.0-0.04); IMM GRAN% 0.2 % (0.0-0.5); LYMPH# 0.61 X1000 (1.2-3.4); LYMPH% 7.1 % (20.5-51.1); MCH 27.7 PG (27-31); MCHC 30.2 g/dL (33-37); MCV 91.6 FL (81-99); MONO# 0.41 X1000 (0.11-0.59); MONO% 4.8 % (1.7-9.3); MPV 11.5 FL (7.4-10.4); NEUT# 7.52 X1000 (1.4-6.5); NEUT% 87.8 % (42.2-75.2); PLT 159 X1000 (130-400); RBC 3.58 XMIL (4.2-5.4); RDW 15.1 % (11.5-14.5); WBC 8.57 X1000 (4.8-10.8)
[2019-03-26 05:31] LABS: CALCIUM 8.9 mg/dL (8.8-10.2); CREATININE 1.1 mg/dL (0.5-0.9)
[2019-03-26 05:39] LABS: MODALITY BI PAP; PCO2(98.6) 58 mmHg (35-45)
[2019-03-26] MEDS: PRILOSEC PO SCH (06:29)
[2019-03-26 07:09] LABS: URINE SOURCE CATH
[2019-03-26 07:26] LABS: BILIRUBIN URINE NEGATIVE (NEGATIVE); BLOOD URINE NEGATIVE (NEGATIVE); COLOR YELLOW; GLUCOSE URINE NEGATIVE (NEGATIVE); KETONE URINE NEGATIVE (NEGATIVE); LEUKOCYTES URINE NEGATIVE (NEGATIVE); NITRITE URINE NEGATIVE (NEGATIVE); PH URINE 5.5; PROTEIN URINE TRACE mg/dL (NEGATIVE); SP GRAVITY URINE 1.024; TURBIDITY URINE CLEAR (CLEAR); UR EPITHELIAL CELLS <10 /HPF (<10); URINE BACTERIA NEGATIVE /HPF; URINE RBC <10 /HPF (<10); URINE WBC <10 /HPF (<10); UROBILINOGEN URINE NORMAL (NORMAL)
[2019-03-26] MEDS: CARDIZEM CD PO SCH (08:39)
[2019-03-26] MEDS: COLACE PO SCH (08:39)
[2019-03-26] MEDS: CELEXA PO SCH (08:39)
[2019-03-26] MEDS: COREG PO SCH ×2 (08:39→20:41)
[2019-03-26] MEDS: ELIQUIS PO SCH ×2 (08:39→20:41)
[2019-03-26] MEDS: APRESOLINE PO SCH ×4 (08:39→20:44)
[2019-03-26] MEDS: CLINIMIX E 4.25%-5% SOLUTION 1,000 ML IV SCH (09:18)
--- NOTE | 2019-03-26 09:37 | Diag Imaging Result Doc PS360 ---
EXAM: CT THORAX W/O CONTRAST INDICATION: copd/lung nodules TECHNIQUE: This exam was performed using automated exposure control, adjustment of mA or kV according to patient size, and/or use of iterative reconstruction technique. COMPARISON: 02/04/2019 FINDINGS: There is stable pulmonary emphysema with an apical predominance. Most of the patchy nodular infiltrate seen on the previous study has resolved during the interval. This includes the somewhat irregular nodular density in the right middle lobe indicating that it was inflammatory. There is perhaps minimal residual infiltrate at the periphery of the right lower lobe laterally suggesting a resolving atypical infectious process. Similarly, there is a small focus of tree-in-bud opacity at the posterior aspect of the right upper lobe that can be seen on image 44 series 3. There is a 4 mm noncalcified nodule in the right upper lobe on image 36 of series 3 that is stable. There is no pleural fluid collection and no pneumothorax. There is a stable stent graft repaired thoracic aortic aneurysm. There is no cardiomegaly. There is extensive coronary artery atherosclerotic calcification. Small shotty nonspecific mediastinal lymph nodes are unchanged. Limited views of the upper abdomen are essentially unremarkable. IMPRESSION: 1.Interval significant improvement of nodular airspace consolidation seen on the previous study as detailed above. 2.Tiny 4 mm noncalcified nodule in the right upper lobe is unchanged. Electronically signed by Hugh Oreilly 03/26/2019 9:35 AM
[2019-03-26] MEDS: LABETALOL IV PRN (14:32)
[2019-03-26] MEDS: LEVAQUIN 500 MG/D5W 500 MG/100 ML IVPB IV SCH (16:29)
[2019-03-26] MEDS ORDERED: ATIVAN IV ONE (18:29)
[2019-03-26] MEDS: LIPITOR PO SCH (20:41)
--- NOTE | 2019-03-26 20:53 | PROGRESS NOTE ---
DATE: 03/26/2019 SUBJECTIVE: The patient is somewhat sleepy this morning. She is currently on a Venturi mask. No acute events noted overnight. OBJECTIVE: Vital Signs: Temperature 98.4 degrees, blood pressure 171/87, heart rate 65, respirations 22, O2 saturation 94% on a Venturi mask. Intake 510, output 700. General: This is a chronically ill-appearing elderly female lying comfortably in bed in no acute distress. Skin: No rashes. No lesions. Heart: S1, S2 normal. Regular rate and rhythm. Lungs: Diminished air entry bilaterally. Scattered wheezes. Abdomen: Positive bowel sounds. Soft, nontender, nondistended. Extremities: No edema. No cyanosis. Neurologic: The patient is alert and oriented x3. LABORATORY DATA: White blood cell count 8.5, hemoglobin 9.9, hematocrit 32, platelets 159,000. ABG: pH 7.41, pCO2 58, pO2 151. Sodium 143, potassium 4, chloride 99, CO2 32, BUN 56, creatinine 1.1, glucose 144. UA negative. Chest CT shows small noncalcified nodule in the right upper lobe. ASSESSMENT AND PLAN: 1. Acute on chronic hypercapnic and hypoxemic respiratory failure. Continue to treat the patient's underlying chronic obstructive pulmonary disease exacerbation. Pulmonary is following. 2. Acute chronic obstructive pulmonary disease exacerbation. Continue on IV steroids, IV antibiotics, bronchodilator therapy and supplemental oxygen. 3. Paroxysmal atrial fibrillation. The patient is rate controlled. Continue on Cardizem, Coreg and Eliquis. 4. Uncontrolled hypertension. We will increase the hydralazine dosage. 5. History of thoracic aorta aneurysm repair. Aware. 6. Severe anxiety. Continue on p.r.n. Ativan. 7. Acute kidney injury. We will start the patient on a small amount of Clinimix since her p.o. intake is quite poor at this time. We will monitor the patient's urine output closely. 8. Gastrointestinal prophylaxis. Continue on Prilosec. 9. Disposition. The patient remains critically ill. Palliative Care has been consulted for assistance with goals of care. cc: Kinsey Lopez MD [facility]
--- NOTE | 2019-03-26 21:58 | PULMONOLOGY PROGRESS NOTE ---
DATE: 03/26/2019 SUBJECTIVE: The patient is awake and alert. She has shortness of breath with any exertion. She is on face mask but was on BiPAP last evening. OBJECTIVE: Vital Signs: The patient has been afebrile for the last 24 hours. Blood pressure 141/94, heart rate 73, respiratory rate 16, oxygen saturation 94%. HEENT: Pupils are equal and reactive. Oropharynx is clear. Neck: Supple. Chest: Reveals markedly diminished breath sounds bilaterally with minimal wheeze. Cardiac: S1-S2. Abdomen: Soft and without hepatosplenomegaly. Extremities: Reveal trace edema. LABORATORIES: CT scan of the thorax reveals diffuse and severe emphysema. Previous nodular infiltrates seen 02/04/2019 have significantly improved. Tiny 4 mm nodule in the right upper lobe. Arterial blood gas reveals a pH 7.41, pCO2 of 58, pO2 of 151. Sodium 143, potassium 4.0, chloride 99, bicarbonate 32, BUN 56, creatinine 1.1. IMPRESSION: A 78-year-old with: 1. Chronic obstructive pulmonary disease exacerbation with end-stage chronic obstructive pulmonary disease. 2. Acute on chronic hypoxemic respiratory failure. 3. Acute on chronic hypercapnic respiratory failure. 4. Tiny nodules identified on CT scan of the thorax. PLAN: 1. Continue steroids, antibiotics, and bronchodilators. 2. Cycle BiPAP at bedtime and p.r.n. 3. Consider a Trilogy. 4. No workup or follow-up will be needed for the small nodule. She is not a candidate for biopsy or treatment. cc: Evans Vang MD
[2019-03-27] MEDS: SOLU-MEDROL IV SCH ×4 (01:57→18:25)
[2019-03-27] MEDS: DUONEB (A & A) INH SCH ×6 (03:36→23:43)
[2019-03-27] MEDS: CLINIMIX E 4.25%-5% SOLUTION 1,000 ML IV SCH (03:48)
[2019-03-27 05:02] LABS: ALLEN TEST YES; BE 10.4 mmoll (-3.0-3.0); BLOOD TYPE ARTERIAL; HCO3-(ACT) 33.1 mmoll (20.0-26.0); METHB 0.9 % (0.0-1.5); O2(CT) 13.5 mL/dL (15.0-23.0); PO2(98.6) 104 mmHg (60-100); SAMPLE BLOOD; SAO2 99.4 % (95.0-100.0); THB 9.8 g/dL (11.5-17.4); pH(98.6) 7.38 (7.35-7.45)
[2019-03-27 05:09] LABS: MODALITY BI PAP; PCO2(98.6) 63 mmHg (35-45)
[2019-03-27] MEDS: PRILOSEC PO SCH (06:13)
[2019-03-27 06:36] LABS: BASO# 0.01 X1000 (0.0-0.2); BASO% 0.1 % (0.0-0.8); HEMATOCRIT 32.5 % (37.0-47.0); HEMOGLOBIN 9.9 g/dL (12.0-16.0); IMM GRAN# 0.02 X1000 (0.0-0.04); IMM GRAN% 0.2 % (0.0-0.5); LYMPH# 0.94 X1000 (1.2-3.4); LYMPH% 10.7 % (20.5-51.1); MCHC 30.5 g/dL (33-37); MCV 91.8 FL (81-99); MONO# 0.33 X1000 (0.11-0.59); MONO% 3.8 % (1.7-9.3); MPV 11.7 FL (7.4-10.4); NEUT# 7.48 X1000 (1.4-6.5); NEUT% 85.2 % (42.2-75.2); PLT 165 X1000 (130-400); RBC 3.54 XMIL (4.2-5.4); RDW 14.9 % (11.5-14.5); WBC 8.78 X1000 (4.8-10.8)
[2019-03-27 06:50] LABS: AGAP 8; BUN 69 mg/dL (8-22); CALCIUM 8.5 mg/dL (8.8-10.2); CHLORIDE 100 mmol/L (98-107); COSMO 305; CREATININE 0.9 mg/dL (0.5-0.9); ESTIMATED GFR > 60; GLUCOSE 160 mg/dL (70-104); POTASSIUM 4.3 mmol/L (3.5-5.1); SODIUM 141 mmol/L (136-145); TCO2 33 mmol/L (25-35)
[2019-03-27 08:35] LABS: BANDS 2 % (0-1); LYMPHS 7 % (21-51); MONO 3 % (1-9); SEGS 88 % (42-75)
[2019-03-27] MEDS: CELEXA PO SCH (08:51)
[2019-03-27] MEDS: ELIQUIS PO SCH ×2 (08:51→21:15)
[2019-03-27] MEDS: COREG PO SCH ×2 (08:51→21:15)
[2019-03-27] MEDS: COLACE PO SCH (08:51)
[2019-03-27] MEDS: APRESOLINE PO SCH ×3 (08:52→17:03)
[2019-03-27] MEDS: CARDIZEM CD PO SCH (08:52)
[2019-03-27] MEDS ORDERED: ATIVAN IV ONE ×2 (10:52→12:44)
[2019-03-27] MEDS: LABETALOL IV PRN ×2 (16:16→23:20)
[2019-03-27] MEDS: LEVAQUIN 500 MG/D5W 500 MG/100 ML IVPB IV SCH (16:16)
[2019-03-27] MEDS ORDERED: BLISTEX MEDICATED BERRY LIP BALM TOP PRN (16:26)
--- NOTE | 2019-03-27 18:59 | PROGRESS NOTE ---
DATE: 03/27/2019 SUBJECTIVE: The patient is resting comfortably. She is still having periods of agitation that required Ativan to be given. OBJECTIVE: Vital Signs: Temperature 98.8 degrees, blood pressure 148/76, heart rate 67, respiratory rate 24, O2 saturation 94% on high-flow nasal cannula. Intake 1.4 L, output 805. General: This is an elderly female lying in bed in no acute distress. Heart: S1, S2 normal. Regular rate and rhythm. Lungs: Diminished air entry bilaterally. Abdomen: Positive bowel sounds. Soft, nontender, nondistended. Extremities: No edema, no cyanosis. Neurologic: The patient is alert and oriented x3. LABORATORY DATA: White blood cell count 8.7, hemoglobin 9.9, hematocrit 32, platelets 165,000. Sodium 141, potassium 4.3, BUN 69, creatinine 0.9. ASSESSMENT AND PLAN: 1. [id number]-wbllqaj hypercapnic and hypoxemic respiratory failure. Continue to treat the patient's chronic obstructive pulmonary disease. 2. Acute chronic obstructive pulmonary disease exacerbation. Continue on intravenous steroids, intravenous antibiotics, bronchodilator therapy and supplemental oxygen. 3. Paroxysmal atrial fibrillation. The patient is rate-controlled. Continue on Cardizem, Coreg and Eliquis. 4. Hypertension. Continue on the current antihypertensive regimen. 5. History of thoracic aortic aneurysm repair. Aware. 6. Severe anxiety. Continue with p.r.n. Ativan. 7. Azotemia. Multifactorial. The patient is receiving high-dose steroids. We will continue to monitor closely. 8. Gastrointestinal prophylaxis. Continue on Prilosec. 9. Protein-calorie malnutrition. We will consult with the dietitian. Continue with Ensure with each meal. cc: Kinsey Lopez MD
[2019-03-27] MEDS ORDERED: ATIVAN IV PRN (21:09)
[2019-03-27] MEDS: LIPITOR PO SCH (21:14)
--- NOTE | 2019-03-27 23:03 | PROGRESS NOTE ---
DATE: 03/27/2019 We appreciated progress of care, complications, change in diagnosis and instructions to patient. SUBJECTIVE: We note the level of consciousness, bed/chair position, family presence if any, level of lethargy, feelings of symptoms and changes in baseline conditions and symptoms. Patient is awake and alert. She has shortness of breath with exertion. High-flow cannula in use. BiPAP at night. In no acute distress at the present time. OBJECTIVE: Vital Signs: Blood pressure 163/95, temperature 98.1, pulse 74, respirations 26, O2 saturation at 94 with high-flow oxygen per nasal cannula. We reviewed EMR, current values and for pulse rate, blood pressure, respiratory rate and pulse oximetry. Also noted other values and trends if present. HEENT: Pupils are equal and reactive. Oropharynx is clear. Neck: Supple. Chest: Reveals marked diminished breath sounds bilaterally with minimal wheeze. Cardiac: S1 and S2. Abdomen: Soft without hepatosplenomegaly. Extremities: Reveal trace edema. LABORATORY: White blood cells 8.78. Red blood cells 3.54. Hemoglobin 9.9. Hematocrit 32.5. Platelet count 165. Sodium 141. Potassium 4.3. Carbon dioxide 33. Chloride 100. BUN 69. Creatinine 0.9. Glucose 160. Calcium 8.5. DIAGNOSTIC: None. Chest CT on 03/26/2019. ASSESSMENT: 1. Acute obstructive pulmonary disease exacerbation with end-stage chronic obstructive pulmonary disease. 2. Acute on chronic hypoxic respiratory failure. 3. Acute on chronic hypercapnic respiratory failure. 4. Tiny nodules identified on CT scan. PLAN: 1. Continue steroids, antibiotics and bronchodilators. 2. Cycle BiPAP at bedtime and p.r.n. 3. Consider [*] 4. She is not a candidate for biopsy or treatment of pulmonary nodules. TIME: Spent 34 minutes on this patient. Input was appreciated from admitting MD and other teams on the case. Dictated by ZAINAB Sullivan for Toyin Gandhi MD cc: ZAINAB Sullivan MD
[2019-03-28] MEDS: CLINIMIX E 4.25%-5% SOLUTION 1,000 ML IV SCH ×3 (00:40→20:59)
[2019-03-28] MEDS: DUONEB (A & A) INH SCH ×6 (03:26→23:26)
[2019-03-28] MEDS: SOLU-MEDROL IV SCH ×3 (04:16→18:06)
[2019-03-28 05:41] LABS: ALLEN TEST YES; BE 10.7 mmoll (-3.0-3.0); BLOOD TYPE ARTERIAL; HCO3-(ACT) 33.2 mmoll (20.0-26.0); O2(CT) 14.4 mL/dL (15.0-23.0); O2HB 94.3 % (95.0-99.0); PO2(98.6) 62 mmHg (60-100); SAMPLE BLOOD; SAO2 96.8 % (95.0-100.0); THB 10.8 g/dL (11.5-17.4); pH(98.6) 7.42 (7.35-7.45)
[2019-03-28 05:43] LABS: MODALITY BI PAP
[2019-03-28 05:44] LABS: PCO2(98.6) 57 mmHg (35-45)
--- NOTE | 2019-03-28 05:48 | Diag Imaging Result Doc PS360 ---
EXAM: CHEST-1 VIEW HISTORY: SOB TECHNIQUE: Single view COMPARISON: 03/25/2019 FINDINGS: The lungs are hyperexpanded. Aortic stents. The heart is not enlarged. The vessels are not distended. There are no infiltrates. No effusion identified. IMPRESSION: No congestive failure Electronically signed by Franklyn Tanner 03/28/2019 5:46 AM
[2019-03-28] MEDS: PRILOSEC PO SCH (06:41)
[2019-03-28] MEDS: LABETALOL IV PRN ×2 (06:51→17:49)
[2019-03-28 07:04] LABS: ESTIMATED GFR > 60
[2019-03-28 07:27] LABS: AGAP 10; BUN 67 mg/dL (8-22); CALCIUM 9.3 mg/dL (8.8-10.2); CHLORIDE 101 mmol/L (98-107); COSMO 310; CREATININE 0.9 mg/dL (0.5-0.9); GLUCOSE 175 mg/dL (70-104); POTASSIUM 4.6 mmol/L (3.5-5.1); SODIUM 144 mmol/L (136-145); TCO2 33 mmol/L (25-35)
[2019-03-28] MEDS: APRESOLINE PO SCH (08:43)
[2019-03-28] MEDS: COLACE PO SCH (08:43)
[2019-03-28] MEDS: ELIQUIS PO SCH ×2 (08:43→20:58)
[2019-03-28] MEDS: CARDIZEM CD PO SCH (08:43)
[2019-03-28] MEDS: CELEXA PO SCH (08:43)
[2019-03-28] MEDS: COREG PO SCH ×2 (08:43→20:58)
[2019-03-28] MEDS ORDERED: LASIX IV ONE (09:36)
[2019-03-28] MEDS: LEVAQUIN 500 MG/D5W 500 MG/100 ML IVPB IV SCH (16:01)
[2019-03-28] MEDS ORDERED: APRESOLINE PO SCH (17:00)
[2019-03-28] MEDS: LIPITOR PO SCH (20:58)
--- NOTE | 2019-03-28 21:34 | PROVIDER PROGRESS NOTE ---
Progress Note Examined and full note to follow
--- NOTE | 2019-03-28 22:14 | PROGRESS NOTE ---
DATE: 03/28/2019 SUBJECTIVE: The patient is awake and alert. She is currently on high-flow oxygen. She states that she feels okay. She is inquiring about when she can go home. OBJECTIVE: Vital Signs: Temperature 98 degrees, blood pressure 161/69, heart rate 66, respirations 22, O2 saturations 95% on high-flow oxygen. Intake 1.7 L, output 1 L. General: This is a chronically ill-appearing elderly female lying in bed in no acute distress. Heart: S1, S2. Normal. Lungs: Diminished air entry bilaterally. No wheezing. Abdomen: Positive bowel sounds. Soft, nontender, nondistended. Extremities: No edema, no cyanosis. Neurologic: The patient is alert and oriented x4. LABS: ABG pH 7.42, pCO2 57, PO2 62, bicarb 33, sodium 144, potassium 4.6, chloride 101, CO2 33, BUN 67, creatinine 0.9, glucose 175. Chest x-ray shows hyperexpanded lungs. No infiltrates. ASSESSMENT AND PLAN: 1. Acute on chronic hypercapnic and hypoxemic respiratory failure. Continue to treat the COPD exacerbation. 2. Acute chronic obstructive pulmonary disease exacerbation. Continue on IV steroids, IV antibiotics, bronchodilator therapy and supplemental oxygen. 3. Paroxysmal atrial fibrillation. Continue on Cardizem, Coreg and Eliquis. 4. Hypertension. Not well controlled. We will increase the hydralazine dosage. 5. Azotemia, improved. Continue to monitor closely. 6. Severe anxiety. Continue with p.r.n. Ativan. 7. History of thoracic aortic aneurysm repair. Aware. 8. Gastrointestinal prophylaxis. Continue on Prilosec. cc: Kinsey Lopez MD
[2019-03-29] MEDS: LABETALOL IV PRN (01:01)
[2019-03-29] MEDS: DUONEB (A & A) INH SCH ×7 (03:36→22:59)
[2019-03-29] MEDS: SOLU-MEDROL IV SCH ×3 (05:02→18:39)
[2019-03-29 05:20] LABS: ALLEN TEST YES; BE 14.7 mmoll (-3.0-3.0); BLOOD TYPE ARTERIAL; HCO3-(ACT) 36.3 mmoll (20.0-26.0); METHB 0.9 % (0.0-1.5); O2(CT) 13.1 mL/dL (15.0-23.0); O2HB 92.5 % (95.0-99.0); PO2(98.6) 62 mmHg (60-100); SAMPLE BLOOD; SAO2 95.1 % (95.0-100.0); pH(98.6) 7.43 (7.35-7.45)
[2019-03-29 05:21] LABS: MODALITY BI PAP; PCO2(98.6) 62 mmHg (35-45)
[2019-03-29] MEDS: PRILOSEC PO SCH (06:18)
[2019-03-29 06:54] LABS: ESTIMATED GFR > 60
[2019-03-29 06:59] LABS: AGAP 7; BUN 69 mg/dL (8-22); CALCIUM 9.5 mg/dL (8.8-10.2); CHLORIDE 98 mmol/L (98-107); COSMO 312; CREATININE 0.9 mg/dL (0.5-0.9); GLUCOSE 188 mg/dL (70-104); POTASSIUM 4.2 mmol/L (3.5-5.1); SODIUM 144 mmol/L (136-145); TCO2 39 mmol/L (25-35)
[2019-03-29] MEDS: CELEXA PO SCH (08:56)
[2019-03-29] MEDS: APRESOLINE PO SCH ×3 (08:56→20:34)
[2019-03-29] MEDS: COREG PO SCH ×2 (08:56→20:34)
[2019-03-29] MEDS: COLACE PO SCH (08:56)
[2019-03-29] MEDS: CARDIZEM CD PO SCH (08:56)
[2019-03-29] MEDS: ELIQUIS PO SCH ×2 (08:56→20:34)
--- NOTE | 2019-03-29 15:17 | PROVIDER PROGRESS NOTE ---
Progress Note Progress Note Progress note entry from 03/28/2019 We appreciated progress of care, Complications, change in diagnosis, and instructions to patient. Subjective: We note the level of consciousness, bed (chair) position, family presence (if any), level of lethargy, feeling of symptoms, and changes from baseline condition/symptom. The patient is lying in bed with no acute distress noted. Alert. States that he is feeling better. Family members at bedside. Objective: Vital Signs: We reviewed EMR current values for Pulse rate, Blood pressure, Pulse rate, respiratory rate and Pulse oximetry. Also noted other values and trends if present (e.g. I/O, CVP). T 98.9(no fever in last 24 hours), OR 101, RR 16, BP 160/95 and SaO2 92% on Bipap. Physical Examination: General: Lying in bed with no acute distress noted. HEENT: Normocephalic. Trachea midline. Mucosa pink and moist. Chest: Even and unlabored. Symmetrical excursion. Auscultation reveals reduced entry bilaterally. chest more clear today than yesterday. CVS: Regular rate and rhythm with S1 and S2 appreciated. Abdomen: Soft. Mildly distended. Normoactive bowel sounds in all 4 quadrants noted. Extremities: BLE and BUE trace edema. Neuro: A/O . Speech fluent. Follow simple commands. Management, face to face evaluation by Dr. Gandhi. ZAINAB Sullivan did scribing only. Labs and Radiology: Reviewed available labs and radiology values available at time of EMR review. Laboratory Results 03/29/19 03/29/19 03/29/19 04:45 05:42 05:42 Specimen Type ARTERIAL Sample Site R RADIAL pH 7.43 pCO2 62 H* pO2 62 HCO3 36.3 H Base Excess 14.7 H Oxyhemoglobin 92.5 L ABG O2 Sat (Calculated) 13.1 L ABG O2 Saturation 95.1 ABG Carboxyhemoglobin 1.70 ABG Methemoglobin 0.9 Dinesh Test YES A-a O2 Difference 74.0 Total Hemoglobin 10.0 L Lactate 1.50 Blood Gas Modality BI PAP Vent Mode BIPAP FiO2 % 30.0 Inspiratory BiPAP 10.0 Expiratory BiPAP 5.0 Sodium 144 Potassium 4.2 Chloride 98 Carbon Dioxide 39 H Anion Gap 7 BUN 69 H Creatinine 0.9 Estimated GFR/1.73 m2 > 60 BUN/Creatinine Ratio 77 Glucose 188 H Calculated Osmolality 312 Calcium 9.5 Kui-F-Vinodhhoyrv Pept 713 H ASSESSMENT: 1. Acute obstructive pulmonary disease exacerbation with end-stage chronic obstructive pulmonary disease. 2. Acute on chronic hypoxic respiratory failure. 3. Acute on chronic hypercapnic respiratory failure. 4. Tiny nodules identified on CT scan. PLAN: 1. Continue steroids, antibiotics and bronchodilators. 2. Cycle BiPAP at bedtime and p.r.n. 3. She is not a candidate for biopsy or treatment of pulmonary nodules. TIME: Spent 32 minutes on this patient. Input was appreciated from admitting MD and other teams on the case.
[2019-03-29] MEDS: LEVAQUIN 500 MG/D5W 500 MG/100 ML IVPB IV SCH (16:21)
[2019-03-29] MEDS: CLINIMIX E 4.25%-5% SOLUTION 1,000 ML IV SCH (17:29)
[2019-03-29] MEDS ORDERED: XANAX PO ONE (17:50)
--- NOTE | 2019-03-29 19:53 | PROVIDER PROGRESS NOTE ---
Progress Note Progress Note We appreciated progress of care, Complications, change in diagnosis, and instructions to patient. Subjective: We note the level of consciousness, bed (chair) position, family presence (if any), level of lethargy, feeling of symptoms, and changes from baseline condition/symptom. The patient is lying in bed with no acute distress noted. Alert. States that he is feeling better. Family members at bedside. Objective: Vital Signs: We reviewed EMR current values for Pulse rate, Blood pressure, Pulse rate, respiratory rate and Pulse oximetry. Also noted other values and trends if present (e.g. I/O, CVP). T 98.0 , TX 68 , RR 24 , BP 165/93, and SaO2 93% High Flow O2 @ 40% Physical Examination: General: Lying in bed with no acute distress noted. HEENT: Normocephalic. Trachea midline. Mucosa pink and moist. Chest: Even and unlabored. Symmetrical excursion. Auscultation reveals reduced entry bilaterally. chest more clear today than yesterday. CVS: Regular rate and rhythm with S1 and S2 appreciated. Abdomen: Soft. Mildly distended. Normoactive bowel sounds in all 4 quadrants noted. Extremities: BLE and BUE trace edema. Neuro: A/O . Speech fluent. Follow simple commands. Management, face to face evaluation by Dr. Gandhi. ZAINAB Sullivan did scribing only. Labs and Radiology: Reviewed available labs and radiology values available at time of EMR review. Laboratory Results 03/29/19 03/29/19 03/29/19 04:45 05:42 05:42 Specimen Type ARTERIAL Sample Site R RADIAL pH 7.43 pCO2 62 H* pO2 62 HCO3 36.3 H Base Excess 14.7 H Oxyhemoglobin 92.5 L ABG O2 Sat (Calculated) 13.1 L ABG O2 Saturation 95.1 ABG Carboxyhemoglobin 1.70 ABG Methemoglobin 0.9 Dinesh Test YES A-a O2 Difference 74.0 Total Hemoglobin 10.0 L Lactate 1.50 Blood Gas Modality BI PAP Vent Mode BIPAP FiO2 % 30.0 Inspiratory BiPAP 10.0 Expiratory BiPAP 5.0 Sodium 144 Potassium 4.2 Chloride 98 Carbon Dioxide 39 H Anion Gap 7 BUN 69 H Creatinine 0.9 Estimated GFR/1.73 m2 > 60 BUN/Creatinine Ratio 77 Glucose 188 H Calculated Osmolality 312 Calcium 9.5 Yef-I-Tumcazlcnrc Pept 713 H ASSESSMENT: 1. Acute obstructive pulmonary disease exacerbation with end-stage chronic obstructive pulmonary disease. 2. Acute on chronic hypoxic respiratory failure. 3. Acute on chronic hypercapnic respiratory failure. 4. Tiny nodules identified on CT scan. PLAN: 1. Continue steroids, antibiotics and bronchodilators. 2. Cycle BiPAP at bedtime and p.r.n. 3. She is not a candidate for biopsy or treatment of pulmonary nodules. TIME: Spent 33 minutes on this patient. Input was appreciated from admitting MD and other teams on the case.
[2019-03-29] MEDS: LIPITOR PO SCH (20:34)
[2019-03-30] MEDS: DUONEB (A & A) INH SCH ×6 (03:06→22:59)
--- NOTE | 2019-03-30 03:34 | PROGRESS NOTE ---
DATE: 03/29/2019 SUBJECTIVE: The patient is resting comfortably in bed. She has not been eating. She has only been taking bites of her meals. OBJECTIVE: Vital Signs: Temperature 98 degrees, blood pressure 177/81, heart rate 66, respirations 22, O2 saturation is 95% on high-flow oxygen, intake 1.6 L output 2.2 L. General: This is a chronically ill-appearing elderly female lying in bed in no acute distress. Heart: S1, S2 normal. Regular rate and rhythm. Lungs: Diminished air entry bilaterally. No wheezing. No rales. Abdomen: Positive bowel sounds. Soft, nontender, nondistended. Extremities: No edema no cyanosis. Neurologic: The patient is alert and oriented x3. LABORATORY DATA: ABG: PH is 7.43, pCO2 of 62, PO2 of 62, bicarbonate 36, sodium 144, potassium 4.2, chloride 98, CO2 is 39, BUN 69, creatinine 0.9. ASSESSMENT AND PLAN: 1. Acute on chronic hypercapnic and hypoxemic respiratory failure. Continue to treat the underlying COPD exacerbation. 2. Acute chronic obstructive pulmonary disease exacerbation. Continue with high-flow oxygen with BiPAP. Continue on IV steroids, IV antibiotics, bronchodilator therapy and supplemental oxygen. 3. Paroxysmal atrial fibrillation. The patient is rate controlled. Continue on Cardizem, Coreg and Eliquis. 4. Azotemia. Unchanged. Likely secondary to a combination of steroids and Clinimix. We will continue to monitor closely. The patient's urine output remains adequate. 5. Severe protein calorie malnutrition. The patient is on Clinimix. 6. Uncontrolled hypertension. We will continue to adjust the patient's antihypertensive regimen. 7. Severe anxiety. We will continue with p.r.nPeyton Ativan. 8. History of the thoracic aortic aneurysm repair. Aware. 9. Gastrointestinal prophylaxis. Continue on Prilosec. 10. Disposition. Palliative care will be meeting with the patient and her family this week to discuss goals of care. cc: Kinsey Lopez MD MTDD
[2019-03-30] MEDS: SOLU-MEDROL IV SCH ×3 (04:04→18:17)
[2019-03-30] MEDS: LABETALOL IV PRN (05:44)
[2019-03-30] MEDS: PRILOSEC PO SCH (05:45)
[2019-03-30 06:00] LABS: ALLEN TEST YES; BE 16.6 mmoll (-3.0-3.0); BLOOD TYPE ARTERIAL; HCO3-(ACT) 37.9 mmoll (20.0-26.0); METHB 0.8 % (0.0-1.5); O2(CT) 6.8 mL/dL (15.0-23.0); O2HB 97.3 % (95.0-99.0); PO2(98.6) 97 mmHg (60-100); SAMPLE BLOOD; SAO2 99.6 % (95.0-100.0); THB 4.8 g/dL (11.5-17.4); pH(98.6) 7.41 (7.35-7.45)
[2019-03-30 06:01] LABS: PCO2(98.6) 67 mmHg (35-45)
[2019-03-30 06:02] LABS: MODALITY BI PAP
[2019-03-30 06:58] LABS: HEMATOCRIT 35.1 % (37.0-47.0); HEMOGLOBIN 10.5 g/dL (12.0-16.0); MCH 27.3 PG (27-31); MCHC 29.9 g/dL (33-37); MCV 91.2 FL (81-99); MPV 12.2 FL (7.4-10.4); RBC 3.85 XMIL (4.2-5.4); RDW 14.7 % (11.5-14.5); WBC 9.84 X1000 (4.8-10.8)
[2019-03-30 07:29] LABS: ESTIMATED GFR > 60
[2019-03-30 07:43] LABS: AGAP 10; BUN 59 mg/dL (8-22); CALCIUM 9.1 mg/dL (8.8-10.2); CHLORIDE 100 mmol/L (98-107); COSMO 314; CREATININE 0.7 mg/dL (0.5-0.9); GLUCOSE 182 mg/dL (70-104); POTASSIUM 4.4 mmol/L (3.5-5.1); SODIUM 147 mmol/L (136-145); TCO2 37 mmol/L (25-35)
[2019-03-30] MEDS ORDERED: ATIVAN IV ONE (08:33)
[2019-03-30] MEDS: ELIQUIS PO SCH ×2 (09:04→21:03)
[2019-03-30] MEDS: CARDIZEM CD PO SCH (09:04)
[2019-03-30] MEDS: CLINIMIX E 4.25%-5% SOLUTION 1,000 ML IV SCH ×2 (09:05→21:03)
[2019-03-30] MEDS: COLACE PO SCH (09:05)
[2019-03-30] MEDS: CELEXA PO SCH (09:08)
[2019-03-30] MEDS: COREG PO SCH ×2 (09:14→21:03)
[2019-03-30] MEDS: APRESOLINE PO SCH ×3 (09:28→21:03)
--- NOTE | 2019-03-30 10:01 | PROGRESS NOTE ---
DATE: 03/30/2019 SUBJECTIVE: The patient is awake and alert. She states that she gets very anxious whenever she is short of breath. This morning, she states that she is anxious and feels like she needs something for her anxiety. She was on BiPAP last night. OBJECTIVE: Vital Signs: Temperature 98.2 degrees, blood pressure 184/85, heart rate 63, respirations 21, O2 saturation 97% on BiPAP. General: This is a chronically ill-appearing, elderly female, lying in bed in no acute distress. Heart: S1, S2 normal. Regular rate and rhythm. Lungs: Diminished breath sounds bilaterally. No wheezing. No rales. Abdomen: Positive bowel sounds. Soft, nontender, nondistended. Extremities: No edema, no cyanosis. Neurologic: The patient is alert and oriented x3. No focal neurologic deficits noted. LABORATORY DATA: White blood cell count 9.8, hemoglobin 10, hematocrit 35, platelets 159,000. Sodium 147, potassium 4.4, chloride 100, CO2 of 37, BUN 59, creatinine 0.7, glucose 182. ASSESSMENT AND PLAN: 1. Acute on chronic hypercapnic and hypoxemic respiratory failure. The patient is currently on high-flow oxygen. Will defer to the juvenile probation officer. 2. Acute chronic obstructive pulmonary disease exacerbation. Continue on the current regimen as directed by the juvenile probation officer. 3. Paroxysmal atrial fibrillation. The patient is rate controlled. Continue on Cardizem, Coreg, and Eliquis. 4. Azotemia. Improved. Continue to monitor closely. 5. Hypernatremia. Will start the patient on D5W, and monitor the sodium closely. 6. Severe protein calorie malnutrition. Nutrition is following. The patient has no appetite. She is currently receiving Ensure with each meal, and Clinimix. 7. Severe anxiety disorder. The patient is requiring as needed Ativan, which she states helps. Continue to monitor closely. 8. Uncontrolled hypertension. Will add Norvasc to the patient's regimen. Continue on the current medications. 9. History of thoracic aortic aneurysm repair. Aware. 10. Gastrointestinal prophylaxis. Continue on Prilosec. 11. Deep vein thrombosis prophylaxis. The patient is currently on Eliquis. 12. Disposition. The patient has not made a decision regarding her code status at this time. Palliative Care is following to discuss goals of care. cc: Kinsey Lopez MD
[2019-03-30] MEDS: NORVASC PO SCH ×2 (10:36→21:03)
[2019-03-30] MEDS: D5W 1,000 ML IV SCH (10:40)
[2019-03-30] MEDS: MORPHINE IV PRN ×3 (13:53→23:07)
[2019-03-30] MEDS: LEVAQUIN 500 MG/D5W 500 MG/100 ML IVPB IV SCH (15:08)
[2019-03-30] MEDS: LIPITOR PO SCH (21:03)
[2019-03-30] MEDS ORDERED: LASIX IV ONE (21:51)
[2019-03-31] MEDS: DUONEB (A & A) INH SCH ×6 (03:24→23:26)
[2019-03-31] MEDS: SOLU-MEDROL IV SCH (03:50)
[2019-03-31] MEDS: MORPHINE IV PRN ×3 (03:52→22:15)
[2019-03-31 05:12] LABS: ALLEN TEST YES; BE 17.2 mmoll (-3.0-3.0); BLOOD TYPE ARTERIAL; HCO3-(ACT) 38.4 mmoll (20.0-26.0); METHB 0.6 % (0.0-1.5); O2(CT) 15.5 mL/dL (15.0-23.0); O2HB 97.3 % (95.0-99.0); PO2(98.6) 114 mmHg (60-100); SAMPLE BLOOD; SAO2 99.2 % (95.0-100.0); SRATE 4 BPM; THB 11.2 g/dL (11.5-17.4); pH(98.6) 7.39 (7.35-7.45)
[2019-03-31 05:17] LABS: MODALITY BI PAP; PCO2(98.6) 75 mmHg (35-45)
[2019-03-31] MEDS: D5W 1,000 ML IV SCH (06:36)
[2019-03-31] MEDS: PRILOSEC PO SCH (06:36)
[2019-03-31 07:08] LABS: HEMATOCRIT 35.8 % (37.0-47.0); HEMOGLOBIN 10.7 g/dL (12.0-16.0); MCH 27.1 PG (27-31); MCHC 29.9 g/dL (33-37); MCV 90.6 FL (81-99); MPV 12.6 FL (7.4-10.4); RBC 3.95 XMIL (4.2-5.4); RDW 14.6 % (11.5-14.5); WBC 11.2 X1000 (4.8-10.8)
[2019-03-31 07:44] LABS: ESTIMATED GFR > 60
[2019-03-31 07:47] LABS: AGAP 10; BUN 57 mg/dL (8-22); CALCIUM 8.9 mg/dL (8.8-10.2); CHLORIDE 92 mmol/L (98-107); COSMO 299; CREATININE 0.8 mg/dL (0.5-0.9); GLUCOSE 201 mg/dL (70-104); POTASSIUM 4.3 mmol/L (3.5-5.1); SODIUM 139 mmol/L (136-145); TCO2 37 mmol/L (25-35)
--- NOTE | 2019-03-31 08:16 | PULMONOLOGY PROGRESS NOTE ---
DATE: 03/30/2019 SUBJECTIVE: The patient reports she is fatigued and is having significant air hunger. OBJECTIVE: Vital Signs: The patient has been afebrile for the last 24 hours. Blood pressure 170/58, heart rate 72, respiratory rate 23, oxygen saturation 97% on high-flow FiO2. HEENT: Pupils are equal and reactive. Oropharynx appears clear but dry. Neck: Supple. Chest: Reveals scattered rhonchi bilaterally. Cardiac: S1-S2. Abdomen: Soft. Extremities: Reveal trace edema. LABORATORIES: Arterial blood gas reveals a pH 7.41, pCO2 of 67, PO2 of 97 on BiPAP. White blood count 9.84, hemoglobin 10.5, platelet count 159,000. IMPRESSION: A 78-year-old with: 1. End-stage chronic obstructive pulmonary disease with chronic hypoxemic and chronic hypercapnic respiratory failure. 2. Chronic obstructive pulmonary disease exacerbation. 3. Small nodules on CT scan. DISCUSSION: A 78-year-old with problems outlined above. This is hospital day 6 and she appears fatigued and is not improved. PLAN: 1. Continue steroids, antibiotics, and bronchodilators. 2. Continue BiPAP as needed. 3. Small diuretic trial. 4. Agree with palliative care consultation. I discussed the case with her sister. 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 cc: Evans Vang MD
[2019-03-31] MEDS: COREG PO SCH ×2 (09:17→20:05)
[2019-03-31] MEDS: NORVASC PO SCH ×2 (09:17→20:06)
[2019-03-31] MEDS: COLACE PO SCH (09:17)
[2019-03-31] MEDS: CARDIZEM CD PO SCH (09:17)
[2019-03-31] MEDS: CELEXA PO SCH (09:17)
[2019-03-31] MEDS: CLINIMIX E 4.25%-5% SOLUTION 1,000 ML IV SCH (09:17)
[2019-03-31] MEDS: ELIQUIS PO SCH ×2 (09:17→20:06)
[2019-03-31] MEDS: APRESOLINE PO SCH ×3 (09:53→20:05)
[2019-03-31] MEDS ORDERED: LABETALOL IV PRN (11:25)
[2019-03-31] MEDS: MYCOSTATIN SUSP PO SCH ×3 (12:59→20:05)
--- NOTE | 2019-03-31 14:19 | PROGRESS NOTE ---
DATE: 03/31/2019 INTERVAL HISTORY: No acute events overnight. SUBJECTIVE: Ms. Jenkins does not appear in any acute distress. She is on high-flow nasal cannula. She states she is feeling a little tired. We discussed about her COPD. We discussed about the reason why she is in the hospital and I answered all of her questions. She is complaining of some cough and expectoration which is not out of proportion. VITAL SIGNS: Temperature of 98.7 degrees, pulse 66, respiratory rate 21, blood pressure 173/69. She is saturating 96% on high-flow nasal cannula. PHYSICAL EXAMINATION: HEENT: No pallor, cyanosis, clubbing or icterus. She has prominent oral thrush. Lungs: Air entry bilaterally equal. Poor inspiratory effort. No wheeze, rhonchi, or crackles. Cardiovascular: S1, S2 normal. Normal sinus rhythm on monitor. No murmur, rub, or gallop. Abdomen: Soft, nontender. Genitourinary: She has urine catheter. Extremity: No lower extremity edema. Neurologic: She is alert. She is able to participate in conversation and provides historical data. Input and output: Suggests positive 360 mL yesterday. LABORATORY [place]: [place] [address], hemoglobin 10.7, platelet 176,000. ABG suggestive of pCO2 of 75 and PO2 of 114. Her BUN is 57, creatinine 0.8. MICROBIOLOGY: No new data. IMAGING: No new imaging. ASSESSMENT AND PLAN: 1. Acute on chronic hypoxic, hypercapnic respiratory failure due to acute chronic obstructive pulmonary disease exacerbation. Continue inhaled bronchodilators, switching between BiPAP and high-flow nasal cannula, intravenous levofloxacin and decrease the dose of intravenous steroids. I will consult Physical Therapy. Continue omeprazole for stress ulcer prophylaxis and apixaban for deep venous thrombosis prophylaxis. The Palliative Care team has been consulted for goals of care discussion considering her COPD is end-stage. I will continue to cycle BiPAP and high-flow nasal cannula as tolerated. 2. History of paroxysmal atrial fibrillation. Currently appears in normal sinus rhythm. Continue home carvedilol, diltiazem and apixaban. 3. Essential hypertension. Her blood pressure has been more than 170 systolic. I will continue carvedilol, diltiazem, hydralazine, and amlodipine was added yesterday. I will also start her on intravenous labetalol as needed. Decreasing the steroid dose could hopefully help with her blood pressure. 4. Oral thrush. Start patient on nystatin suspension. 5. Nutrition. Considering she has been needing BiPAP very often, I will change her diet to mechanical soft, continue intravenous Clinimix. 6. Others. Continue home citalopram for anxiety, atorvastatin for hyperlipidemia. DISPOSITION: Ms. Jenkins appears pretty weak and has advanced COPD. Previously, the patient's goals of care discussion was held with the patient's sister. The Palliative Care team has been on board. I will keep the family informed. I will also keep her on aspiration precautions. Plan of care discussed with the patient's nurse. All of her questions have been answered. I also discussed plan of care to the patient. cc: Esdras Pickens MD
[2019-03-31] MEDS ORDERED: MORPHINE IV ONE (16:00)
[2019-03-31] MEDS: LEVAQUIN 500 MG/D5W 500 MG/100 ML IVPB IV SCH (16:26)
[2019-03-31] MEDS: LIPITOR PO SCH (20:05)
[2019-04-01] MEDS: DUONEB (A & A) INH SCH ×5 (03:16→19:58)
[2019-04-01 05:10] LABS: HEMATOCRIT 33.4 % (37.0-47.0); HEMOGLOBIN 10.4 g/dL (12.0-16.0); IMM GRAN# 0.16 X1000 (0.0-0.04); IMM GRAN% 1.3 % (0.0-0.5); LYMPH# 0.58 X1000 (1.2-3.4); LYMPH% 4.8 % (20.5-51.1); MCH 27.8 PG (27-31); MCHC 31.1 g/dL (33-37); MCV 89.3 FL (81-99); MONO# 0.65 X1000 (0.11-0.59); MONO% 5.4 % (1.7-9.3); MPV 11.8 FL (7.4-10.4); NEUT# 10.74 X1000 (1.4-6.5); NEUT% 88.5 % (42.2-75.2); PLT 149 X1000 (130-400); RBC 3.74 XMIL (4.2-5.4); RDW 14.3 % (11.5-14.5); WBC 12.13 X1000 (4.8-10.8)
[2019-04-01 05:20] LABS: ESTIMATED GFR > 60
[2019-04-01 05:24] LABS: AGAP 5; BUN 53 mg/dL (8-22); CALCIUM 8.7 mg/dL (8.8-10.2); CHLORIDE 93 mmol/L (98-107); COSMO 292; CREATININE 0.7 mg/dL (0.5-0.9); GLUCOSE 170 mg/dL (70-104); MAGNESIUM 2.3 mg/dL (1.5-2.7); POTASSIUM 4.5 mmol/L (3.5-5.1); SODIUM 137 mmol/L (136-145); TCO2 39 mmol/L (25-35)
[2019-04-01 05:32] LABS: ALLEN TEST YES; BE 18.7 mmoll (-3.0-3.0); BLOOD TYPE ARTERIAL; HCO3-(ACT) 39.5 mmoll (20.0-26.0); METHB 1.2 % (0.0-1.5); O2(CT) 10.4 mL/dL (15.0-23.0); O2HB 94.2 % (95.0-99.0); PO2(98.6) 68 mmHg (60-100); SAMPLE BLOOD; SAO2 96.9 % (95.0-100.0); THB 7.8 g/dL (11.5-17.4); pH(98.6) 7.41 (7.35-7.45)
[2019-04-01 05:40] LABS: MODALITY BI PAP; PCO2(98.6) 72 mmHg (35-45)
[2019-04-01] MEDS: CLINIMIX E 4.25%-5% SOLUTION 1,000 ML IV SCH (06:28)
[2019-04-01] MEDS: SOLU-MEDROL IV SCH (06:28)
--- NOTE | 2019-04-01 06:56 | PULMONOLOGY PROGRESS NOTE ---
DATE: 03/31/2019 SUBJECTIVE: The patient is currently on high-flow oxygen. She reports she is tired. She is having difficulty coughing and clearing secretions. OBJECTIVE: Vital Signs: The patient has been afebrile for the last 24 hours. Blood pressure 160/66, heart rate 68, respiratory rate 19, oxygen saturation 92%. She is taking limited oral intake and has a very poor appetite. HEENT: Pupils are equal and reactive. Oropharynx clear. Neck: Supple. Chest: Reveals markedly diminished breath sounds bilaterally with faint wheezing. Cardiac: S1, S2. Abdomen: Soft. Extremities: Reveal trace edema. LABORATORY DATA: Arterial blood gas reveals a pH 7.39, pCO2 of 75, pO2 of 114. White blood count 11.20, hemoglobin 10.7, platelet count a 176,000. IMAGING: No new x-ray data. IMPRESSION: A 78-year-old with: 1. End-stage chronic obstructive pulmonary disease. 2. Chronic obstructive pulmonary disease exacerbation with hypoxemic and hypercapnic respiratory failure. 3. Small nodules on CT scan. PLAN: 1. Continue steroids, BiPAP and high-flow oxygen. 2. Agree with Palliative Care consultation. Her overall prognosis is poor and end of life discussions are prudent at this juncture. cc: Evans Vang MD
--- NOTE | 2019-04-01 07:06 | Diag Imaging Result Doc PS360 ---
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 There is COPD. There is ill-defined opacity in the left lower lobe which was also present on 03/28/2019 and 03/25/2019. IMPRESSION: Stable chest. Electronically signed by Dylan North 04/01/2019 7:04 AM
[2019-04-01 07:38] LABS: LYMPHS 6 % (21-51); MONO 2 % (1-9); SEGS 92 % (42-75)
[2019-04-01] MEDS: PRILOSEC PO SCH (09:00)
[2019-04-01] MEDS: ELIQUIS PO SCH ×2 (09:28→20:02)
[2019-04-01] MEDS: CARDIZEM CD PO SCH (09:28)
[2019-04-01] MEDS: COLACE PO SCH (09:28)
[2019-04-01] MEDS: CELEXA PO SCH (09:28)
[2019-04-01] MEDS: COREG PO SCH ×2 (09:28→20:02)
[2019-04-01] MEDS: NORVASC PO SCH ×2 (09:28→20:02)
[2019-04-01] MEDS: MYCOSTATIN SUSP PO SCH ×4 (09:29→20:02)
[2019-04-01] MEDS: APRESOLINE PO SCH ×3 (09:31→20:02)
[2019-04-01] MEDS: MORPHINE IV PRN ×3 (11:22→20:10)
--- NOTE | 2019-04-01 12:18 | PROGRESS NOTE ---
DATE: 04/01/2019 INTERVAL HISTORY: No acute events overnight. She did have episodes of anxiety yesterday requiring additional intravenous morphine. She has been on intravenous Clinimix since her oral intake has been poor. Her blood pressure was better controlled with addition of amlodipine day before yesterday. Physical therapy is yet to evaluate her. SUBJECTIVE: She is on BiPAP and she is feeling the same. She denies new chest pain. She is still feeling short of breath when she goes back to high-flow nasal cannula. She has occasional cough which is nonproductive. OBJECTIVE: Vital Signs: Temperature 97.4 degrees, pulse 61, respiratory rate 19, blood pressure 170/70. She is saturating 94% to 95% on 30% of FiO2. General: On physical examination, not in acute distress. HEENT: Oral cavity is moist. Lungs: She has diminished air entry of bilateral lung quesada with inspiratory crackles, infrascapular region. Cardiovascular: S1 and S2 normal. No murmur, rub, or gallop. Abdomen: Soft, nontender. She has urine catheter. Extremities: No lower extremity edema. Neurologic: She is alert. She is able to follow simple commands, answers simple questions. Because of BiPAP mask, communication is a little difficult. Input and Output: Suggest she had 1.07 liters of urine yesterday. LAB DATA: WBC of 12,000, hemoglobin 10.4, platelet 149,000. A pH of 7.41, pCO2 of 72, PO2 of 68 on 40% BiPAP. She has a BUN of 53, creatinine 0.7. No positive microbiological data. Chest x-ray suggests essentially stable chest. ASSESSMENT AND PLAN: 1. Acute on chronic hypoxic hypercapnic respiratory failure due to acute chronic obstructive pulmonary disease exacerbation. Continue inhaled bronchodilators, switching between BiPAP and high-flow nasal cannula, intravenous levofloxacin and intravenous steroids. Physical therapy has been consulted. Continue omeprazole for stress ulcer prophylaxis and apixaban for deep venous thrombosis prophylaxis. The palliative care team has been on board for chronic obstructive pulmonary disease. 2. History of paroxysmal atrial fibrillation. Appears to be in normal sinus rhythm. Continue home carvedilol, diltiazem, apixaban. 3. Essential hypertension. Continue carvedilol, diltiazem, hydralazine, amlodipine, and as needed intravenous labetalol. 4. Oral thrush. Continue nystatin swish and swallow. 5. Nutrition. Continue oral diet and intravenous Clinimix. 6. Others. Continue citalopram for anxiety, morphine for shortness of breath, atorvastatin for hyperlipidemia. 7. Disposition: Unfortunately, Ms. Jenkins appears to have advanced chronic obstructive pulmonary disease, and considering her poor nutritional status, inability to improve, her prognosis is guarded. I called her sister and informed her about the patient's critical condition. The patient's is going to come by sometimes in the afternoon, and I will go over all further goals of care with him. TIME SPENT: More than 30 minutes of critical care time was spent taking care of this patient. Plan of care discussed with nursing team as well. cc: Esdras Pickens MD MTDD
[2019-04-01] MEDS: TYLENOL PO PRN ×2 (12:29→18:25)
[2019-04-01] MEDS: LEVAQUIN 500 MG/D5W 500 MG/100 ML IVPB IV SCH (15:14)
[2019-04-01] MEDS: DUONEB (A & A) INH PRN (18:33)
--- NOTE | 2019-04-01 19:40 | PROGRESS NOTE ---
DATE: 04/01/2019 ADDENDUM: Goals of care discussion: I called the patient's sister on the phone. I updated her about the patient's clinical condition, and I asked about the goals of care. Her sister mentioned that Ms. Jenkins had previously mentioned that she would not want any ventilator support or chest compression if the need arose; however, I discussed with her that I had to confirm the code status with her as well. In the afternoon time I met the patient's at bedside. I discussed with him about Ms. Jenkins' clinical condition including advanced-stage COPD, consistent need for intermittent BiPAP and high-flow nasal cannula. I explained to him that if her COPD did not improve, then she may end up in a situation where intubation could be an only option. Considering her poor nutritional status, that could happen sooner or later. I asked if Ms. Jenkins had previously expressed her future wishes. After understanding her clinical condition and understanding Ms. Jenkins' wishes Mr. Jenkins suggested that she would not have wanted any chest compressions, shock or intubation if we reached that point. The patient's nurse as well as the palliative care team is also at the bedside. I communicated this plan to them. The patient's code status is Do Not Resuscitate/Allow Natural level 1. We would not give any chest compressions, shocks or intubation. Plan of care discussed the nursing team. Additional 30 minutes of time was spent in this discussion. cc: Esdras Pickens MD MTDD
[2019-04-01] MEDS: LIPITOR PO SCH (20:02)
[2019-04-02] MEDS: DUONEB (A & A) INH SCH ×7 (00:10→22:45)
[2019-04-02] MEDS: MORPHINE IV PRN ×3 (01:35→12:04)
[2019-04-02] MEDS: CLINIMIX E 4.25%-5% SOLUTION 1,000 ML IV SCH (02:59)
[2019-04-02] MEDS: SOLU-MEDROL IV SCH (05:31)
[2019-04-02] MEDS: PRILOSEC PO SCH ×2 (05:33→06:43)
--- NOTE | 2019-04-02 07:39 | PULMONOLOGY PROGRESS NOTE ---
DATE: 04/01/2019 SUBJECTIVE: The patient is softly moaning when I entered the room. She reports her breathing has not improved. OBJECTIVE: Vital Signs: The patient has been afebrile for the last 24 hours. Blood pressure 136/88, heart rate 60, respiratory rate 22, oxygen saturation 98%. HEENT: Pupils are equal and reactive. Oropharynx is clear. Neck: Is supple. Chest: Reveals diminished breath sounds bilaterally with faint distant wheezing. Cardiac exam: S1, S2. Abdomen: Is soft. Extremities: Without edema. LABORATORIES: Arterial blood gas reveals a pH of 7.41, pCO2 of 72, PO2 of 68 on BiPAP. White blood count 12.13, hemoglobin 10.4, platelet count 149,000. Sodium 137, potassium 4.5, chloride 93, bicarbonate 39, BUN 53, creatinine 0.7. IMPRESSION: A 78-year-old with 1. End-stage chronic obstructive pulmonary disease. 2. Chronic obstructive pulmonary disease exacerbation with hypoxemic and hypercapnic respiratory failure. 3. Small nonspecific nodules on CT scan. 4. Anorexia with poor p.o. intake. PLAN: 1. Continue BiPAP and O2 as needed for hypoxemic and hypercapnic respiratory failure. 2. Continue steroids. 3. The patient was asking questions if she could go home. If she does not improve, would consider discharge home with hospice. cc: Evans Vang MD
[2019-04-02] MEDS: CELEXA PO SCH (08:05)
[2019-04-02] MEDS: APRESOLINE PO SCH ×2 (08:11→15:51)
[2019-04-02] MEDS: ELIQUIS PO SCH (08:11)
[2019-04-02] MEDS: MYCOSTATIN SUSP PO SCH ×2 (08:12→14:30)
[2019-04-02] MEDS: NORVASC PO SCH (08:12)
[2019-04-02] MEDS: CARDIZEM CD PO SCH (08:12)
[2019-04-02] MEDS: COREG PO SCH (08:12)
[2019-04-02] MEDS: COLACE PO SCH (08:58)
[2019-04-02] MEDS ORDERED: ULTRAM PO PRN (10:27)
[2019-04-02 10:34] LABS: AGAP 12; BUN 58 mg/dL (8-22); CALCIUM 8.9 mg/dL (8.8-10.2); CHLORIDE 92 mmol/L (98-107); COSMO 292; CREATININE 0.7 mg/dL (0.5-0.9); ESTIMATED GFR > 60; GLUCOSE 176 mg/dL (70-104); POTASSIUM 5.2 mmol/L (3.5-5.1); SODIUM 136 mmol/L (136-145); TCO2 32 mmol/L (25-35)
--- NOTE | 2019-04-02 13:58 | PROGRESS NOTE ---
DATE: 04/02/2019 INTERVAL HISTORY: No acute events overnight. SUBJECTIVE: Ms. Jenkins has been moaning. Has not been able to eat well. Denies any worsening shortness of breath. She expresses if she could go home. OBJECTIVE: Vital Signs: Temperature 97.3 degrees, pulse 61, respiratory 20, blood pressure 187/74. She is saturating 92% on high-flow nasal cannula. General: Mild distress. HEENT: Significant oral thrush. Lungs: Air entry bilaterally equal. She has inspiratory crackles, infrascapular region. She does have diminished breath sounds bilaterally. Cardiovascular: S1, S2 normal. No murmur or gallop. Abdomen: Soft, nontender. General: She has urine catheter. Extremities: No lower extremity edema. Neurologic: She is alert though intermittently drowsy. She is able to comply with physical examination. LABORATORY DATA: Suggestive of no CBC or BMP today. ASSESSMENT AND PLAN: 1. Acute on chronic hypoxic hypercapnic respiratory failure due to acute chronic obstructive pulmonary disease exacerbation. Continue inhaled bronchodilators, BiPAP and high-flow nasal cannula as tolerated. Intravenous levofloxacin and intravenous steroids. Continue physical therapy. Omeprazole for steroid-induced ulcer prophylaxis, and apixaban for deep venous thrombosis prophylaxis. 2. History of paroxysmal atrial fibrillation, currently normal sinus rhythm on carvedilol, diltiazem, apixaban. 3. Essential hypertension. Continue carvedilol, diltiazem, hydralazine, amlodipine, and as needed intravenous labetalol. 4. Other. Continue nystatin for oral thrush, intravenous Clinimix with oral diet for nutrition, citalopram for anxiety, morphine for pain and shortness of breath, atorvastatin for hyperlipidemia, and start tramadol as needed for pain. DISPOSITION: Patient's code status is Do Not Resuscitate level 1. I will hold further discussion of goals of care with the patient's as the patient may want to go home on hospice. Plan of care discussed with the nursing team. Their questions have been answered. cc: Esdras Pickens MD
[2019-04-02] MEDS ORDERED: OFIRMEV 1000 MG/ISOTONIC SOLN 1,000 MG/100 ML BOTTLE IV PRN (15:34)
[2019-04-02] MEDS: ATIVAN IV PRN (15:42)
[2019-04-02] MEDS: DILAUDID IV PRN (15:42)
--- NOTE | 2019-04-02 20:35 | PROGRESS NOTE ---
DATE: 04/02/2019 I met with multiple family members at bedside who requested Hospice Team evaluation. The patient's , his and daughter are at bedside. The patient's states that, at this point, they would want comfort measures only. I explained to them that the patient has advanced COPD and has been requiring BiPAP and high-flow nasal cannula and has been on antibiotics for a long time, which unfortunately did not help her get improved. I also explained to them that she probably had poor reserve capacity and poor lung reserve. They understood it. I explained that, at that point, if the goals of care where providing comfort measures only, then we will start her on medications to help address and alleviate her anxiety, discomfort and symptoms rather than providing her therapy which was not helping her. We also discussed that we will stop the antibiotics and other unnecessary measures which have not helped recently. They understood it. I will start the patient on intravenous hydromorphone, intravenous lorazepam as- needed and I will transfer the patient out of ICU for comfort measures only. Hospice Team is also at bedside. cc: Esdras Pickens MD MTDD
--- NOTE | 2019-04-02 21:41 | PULMONOLOGY PROGRESS NOTE ---
DATE: 04/02/2019 SUBJECTIVE: The patient was sleeping but after arrival she was moaning softly. She continues to have poor appetite. She did mention last night that she wanted to go home. OBJECTIVE: Vital Signs: The patient has been afebrile for the last 24 hours. BP 172/61, heart rate 60, respiratory rate 24, oxygen saturation 93% on high-flow FiO2. HEENT: Pupils are equal and reactive. Oropharynx appears clear. Neck: Supple. Chest: Reveals markedly diminished breath sounds bilaterally with distant wheezing. Cardiac: S1-S2. Abdomen: Soft. Extremities: Without edema. LABORATORIES: Sodium 136, potassium 5.2, chloride 92, bicarbonate 32, BUN 58, creatinine 0.7. No arterial blood gas today. White blood count not obtained today. IMPRESSION: A 78-year-old with: 1. End-stage chronic obstructive pulmonary disease. 2. Chronic obstructive pulmonary disease exacerbation with hypoxemic respiratory failure. 3. Anorexia with poor p.o. intake. Despite hospital day #9, she is not clinically improving. 4. Small nonspecific nodules on CT scan. These will not need further evaluation given her end- stage disease. PLAN: 1. Continue BiPAP and oxygen as needed for hypoxemic and hypercapnic respiratory failure as long as these modalities bring comfort. 2. Continue steroids. 3. Agree with plans for transfer to the floor. 4. End of life discussions are in progress. She will be allowed to have a natural . Possible hospice discussion so she can go home is being entertained. cc: Evans Vang MD
[2019-04-03] MEDS: DUONEB (A & A) INH SCH ×6 (03:27→23:50)
[2019-04-03] MEDS: DILAUDID IV PRN ×3 (04:18→22:03)
[2019-04-03] MEDS: MYCELEX TROCHE PO SCH ×3 (12:13→20:56)
--- NOTE | 2019-04-03 16:12 | PROGRESS NOTE ---
DATE: 04/03/2019 INTERVAL HISTORY: Patient has been comfort measures only. No acute events. The patient's is at bedside. Ms. Jenkins is sleepy, occasionally groaning. She just received her pain medications. She is not able to engage in any conversation meaningfully. VITALS: Temperature 97.2 degrees, pulse 62, respiratory rate 18, blood pressure 170/64, saturating 97% on high-flow nasal cannula. PHYSICAL EXAMINATION: Lungs: She has decreased air entry in bilateral lung quesada. Oral Cavity: Is dry. Cardiovascular: S1, S2 normal. Abdomen: Soft, nontender. Extremities: No lower extremity edema. OPERATOR CAVITY PUMP: She is drowsy but arousable. LABORATORY: No labs. ASSESSMENT AND PLAN: 1. Acute on chronic hypoxic hypercapnic respiratory failure. 2. Chronic obstructive pulmonary disease exacerbation. 3. End-stage chronic obstructive pulmonary disease. 4. Essential hypertension. 5. Oral thrush. PLAN: We will continue to address her pain, anxiety and discomfort through intravenous hydromorphone and intravenous lorazepam as needed. I will give her albuterol ipratropium nebulization and clotrimazole for oral thrush. I sat down with the patient's and informed him that he or any of the family members could let us know if they thought the patient was in any significant distress and we will continue to work to address and make her more comfortable. He is in agreement. cc: Esdras Pickens MD
--- NOTE | 2019-04-03 21:57 | PULMONOLOGY PROGRESS NOTE ---
DATE: 04/03/2019 SUBJECTIVE: The patient's family is at the bedside. She is currently resting quietly. She appears to be comfortable. OBJECTIVE: Vital Signs: The patient has been afebrile for the last 24 hours. Blood pressure 155/53, heart rate 62, respiratory rate 17, oxygen saturation 93% on high-flow FiO2. HEENT: Pupils are equal and reactive. Oropharynx is clear. Neck: Supple. Chest: Reveals markedly diminished breath sounds bilaterally with faint distal wheezing. Cardiac: S1-S2. Abdomen: Soft. Extremities: Without edema. LABORATORIES: No new chemistries or arterial blood gas. IMPRESSION: A 78-year-old with: 1. End-stage chronic obstructive pulmonary disease. 2. Chronic obstructive pulmonary disease exacerbation. 3. Continued decline in performance status at hospital day #10. 4. Nonspecific nodules on CT scan. PLAN: 1. Continue BiPAP and high-flow oxygen for comfort. 2. Continue opioids for air hunger. 3. Continue comfort measures. The patient's resuscitation status has been addressed and she will be allowed to have a natural if she does not survive this hospital stay. cc: Evans Vang MD
[2019-04-03] MEDS: ATIVAN IV PRN (23:38)
[2019-04-04] MEDS: MYCELEX TROCHE PO SCH ×4 (02:51→19:55)
[2019-04-04] MEDS: DUONEB (A & A) INH SCH ×6 (03:13→23:29)
[2019-04-04] MEDS: DILAUDID IV PRN ×2 (11:32→20:01)
--- NOTE | 2019-04-04 17:21 | PROGRESS NOTE ---
DATE: 07/03/2019 INTERVAL HISTORY: No acute events overnight. SUBJECTIVE: Miss Jenkins is sedated. Does not appear in acute distress. Daughter is at bedside. PHYSICAL EXAMINATION: Vital signs: Temperature not recorded today, yesterday it was 97.7. Current pulse 82. Respiratory rate 16. Blood pressure 150/52. Saturation 100% on high-flow nasal cannula. general: Not in distress. lungs: Her respiratory rate is decreased whenever she takes a breath. Air entry appears bilaterally equal. No wheeze, rhonchi, or crackles. Cardiovascular: S1, S2 normal. Good pulse volume. No murmur, rub, or gallop. Abdomen: Soft, nontender. No lower extremity edema. She is lethargic, but comfortable. LABORATORIES: No labs. ASSESSMENT AND PLAN: 1. Acute on chronic hypoxic hypercapnic respiratory failure. 2. Acute chronic obstructive pulmonary disease exacerbation. 3. End-stage chronic obstructive pulmonary disease. 4. Essential hypertension. 5. Oral thrush. PLAN: I will continue to address her pain, anxiety, and discomfort using intravenous hydromorphone and intravenous lorazepam as needed. Continue inhaled bronchodilators and sublingual clotrimazole for oral thrush. Plan of care discussed with daughter at bedside. Her questions have been answered. The patient is Do Not Resuscitate Level 1, Comfort Measures Only. cc: Esdras Pickens MD
--- NOTE | 2019-04-04 18:19 | PULMONOLOGY PROGRESS NOTE ---
DATE: 04/04/2019 SUBJECTIVE: The patient is resting quietly. Family reports she is having some periods of apnea. She was awake and alert yesterday evening but not today. OBJECTIVE: The patient has been afebrile for the last 24 hours. Blood pressure 150/52, heart rate 82, respiratory rate 16, oxygen saturation 91% on high-flow FIO2. HEENT: Pupils are equal and reactive. Oropharynx appears dry. Neck is supple. Chest reveals markedly diminished breath sounds bilaterally, with scattered rhonchi. Cardiac exam: S1, S2. Abdomen is soft. Extremities without edema. IMPRESSION: A 78-year-old with: 1. Endstage chronic obstructive pulmonary disease. 2. Chronic obstructive pulmonary disease exacerbation with [id number] hypoxemic and hypercapnic respiratory failure. 3. Hypertension. PLAN: 1. Continue opioids and benzodiazepines as needed for comfort. 2. Continue bronchodilators. 3. Allow patient to have a natural . She continues to decline. cc: Evans Vang MD
[2019-04-05] MEDS: MYCELEX TROCHE PO SCH ×4 (01:04→19:56)
[2019-04-05] MEDS: DUONEB (A & A) INH SCH ×6 (03:46→23:16)
[2019-04-05] MEDS: DILAUDID IV PRN ×3 (09:38→18:26)
--- NOTE | 2019-04-05 20:17 | PROGRESS NOTE ---
DATE: 04/05/2019 RECENT HISTORY: No acute events overnight. SUBJECTIVE: Ms. Jenkins is not responding and lethargic. VITALS: No new temperature. Pulse of 95, respiratory rate 14, blood pressure 122/47, saturating 94% on high-flow nasal cannula. PHYSICAL EXAMINATION: Not in acute distress.HEENT: Oral cavity has thrush, pool of saliva. lungs: Her respiratory rate is decreased to almost 7 breaths per minute on examination. She has poor inspiratory effort. Cardiovascular: S1, S2 normal. Irregularly irregular. No murmur or gallop. Abdomen: Soft, nontender. Extremities: No lower extremity edema. Neurologic: She does not awaken to verbal stimuli. LABS: No labs or imaging. ASSESSMENT AND PLAN: 1. Acute on chronic hypoxic hypercapnic respiratory failure. 2. End-stage chronic obstructive pulmonary disease. 3. Acute chronic obstructive pulmonary disease exacerbation. 4. Essential hypertension. 5. Oral thrush. PLAN: The patient is a do not resuscitate level 1, comfort measures only. I will address her pain and anxiety with intravenous hydromorphone and intravenous lorazepam as needed. I will also keep her on inhaled bronchodilators for her shortness of breath. Plan of care discussed with the patient's at bedside. All of his questions were answered. I asked him if I could be of any more help, and I also suggested that if they saw any signs of pain or anxiety, they should let us know so that we could adjust the pain medication and anxiety medication dose. cc: Esdras Pickens MD
[2019-04-06] MEDS: DILAUDID IV PRN ×4 (01:18→22:00)
[2019-04-06] MEDS: MYCELEX TROCHE PO SCH ×4 (01:47→19:47)
[2019-04-06] MEDS: DUONEB (A & A) INH SCH ×6 (03:57→23:00)
--- NOTE | 2019-04-06 10:55 | PROGRESS NOTE ---
DATE: 04/06/2019 INTERVAL HISTORY: No acute events overnight. Family is at bedside. OBJECTIVE: Vital Signs: Temperature of 100 degrees, pulse 111, respiratory rate 22, blood pressure 84/46, saturating 92% on high-flow nasal cannula. General: Not in acute distress. HEENT: Oral cavity has oral thrush. Lungs: She has a low respiratory rate intermittently when she wakes up. Poor inspiratory effort. Bilateral crackles. Heart: S1, S2 normal. Tachycardic. Irregularly irregular. Abdomen: Soft, nontender. Extremities: No lower extremity edema. Neurologic: She is lethargic, not responding to verbal or painful stimuli. However, spontaneously sometimes wakes up. LABORATORY DATA: No new labs. ASSESSMENT: 1. Hypoxic respiratory failure. 2. Chronic obstructive pulmonary disease exacerbation. 3. End-stage chronic obstructive pulmonary disease. 4. Oral thrush. 5. Hypertension. PLAN: The patient is DO NOT RESUSCITATE level 1, comfort measures only. I will address her pain and anxiety with intravenous hydromorphone and intravenous lorazepam as needed. I will continue inhaled bronchodilators. Multiple family members are at bedside. Their questions and concerns were addressed. Previously, Hospice Team had evaluated the patient. cc: Esdras Pickens MD
[2019-04-06 19:27] VITALS: BP 134/55
[2019-04-07] MEDS: MYCELEX TROCHE PO SCH (01:02)
[2019-04-07] MEDS: DUONEB (A & A) INH SCH (05:46)
--- NOTE | 2019-04-14 14:14 | DISCHARGE SUMMARY ---
ADMISSION DATE: 03/24/2019 DISCHARGE DATE: 04/07/2019 DATE OF : Likely 04/07/2019 TIME OF : After midnight. CAUSE OF : Chronic obstructive lung disease. HOSPITAL COURSE SUMMARY: Ms. Jenkins was 78 years old lady who had presented on 03/24/2019 with chief complaints of shortness of breath. She has she was diagnosed with acute hypoxic hypercapnic respiratory failure due to chronic obstructive pulmonary disease exacerbation, was started on broad-spectrum intravenous antibiotics and on oxygenation through BiPAP and was admitted for further management. The patient has had a prolonged course requiring frequent BiPAP and high-flow nasal cannula. Her COPD however was advanced and she was never able to regain adequate functional status to remain off BiPAP. Her oral intake was significantly decreased and goals of care discussion was held with the family. The family was explained to about the end- stage COPD, poor prognosis and considering and understanding the nature of her illness, the family had decided to make her do not resuscitate and comfort measures only. Patient later on was transferred to routine medical floor and was started on intravenous morphine and intravenous lorazepam as needed for pain and anxiety. she on April 07. cc: Esdras Pickens MD MTDD
== END 2019-04-07 01:30 | disposition expired | DRG 189 ==
LOC: ED 11:30 → SUATTDRO 15:26 → ICU 15:26 → 3N 04-02 16:41
PROVIDERS: ATTEND Internal Medicine